=== PATIENT | female | born 1965 | race Caucasian/White ===

== ENCOUNTER 2017-02-24 08:59 | Emergency (ER) | payer OTHER ==
[~2017-02-24] VITALS: Ht 165.1 cm; Wt 100.7 kg
[~2017-02-24 08:59] MED LIST: AMPH20TA2 PO; CALCTAB5 PO; CITA20TA9 PO; ERGO1CAP35 PO; IBUP-1050 PO; LEVO50TA PO; OXYB5TAB74 PO; PHEN-536 PO; PRM625 PO; TOPI25TA99 PO; VNTHFA/IN INH
[2017-02-24 09:10] VITALS: TEMP 36.8; Ht 165.1 cm; Wt 100.7 kg
[2017-02-24 09:20] VITALS: O2SAT 99
[2017-02-24] MEDS ORDERED: ERGO500037 PO (09:33)
[2017-02-24] MEDS ORDERED: SODIUM CHLORIDE 0.9% 1000ML 1,000 ML IV STA (10:28)
[2017-02-24] MEDS ORDERED: MoRPHine SULFATE 10 MG/ML CARP/VIAL IV STA (10:28)
[2017-02-24] MEDS ORDERED: KETOROLAC TROMETHAMINE 30 MG/ML VIAL IV STA (10:28)
[2017-02-24 10:38] LABS: BASO % 0.3 %; BASO ABS # 0.03 K/uL (0-0.2); COMPLETE YES; EOS % 1.4 %; HEMATOCRIT 40.8 % (37-47); IG% 0.2 %; LYMPH % 22.1 %; LYMPH ABS # 1.91 K/uL (1.2-3.4); MEAN CELL VOLUME 94.4 fL (80-100); MEAN CORPUSCULAR HEMOGLOBIN 31.7 pg (25-34); MEAN CORPUSCULAR HGB CONC 33.6 g/dl (32-36); MEAN PLATELET VOLUME 10.3 fL (7.4-10.4); MONO % 7.3 %; NEUT % 68.7 %; PLATELET COUNT 266 K/uL (130-400); RED BLOOD COUNT 4.32 M/uL (4.2-5.4); WHITE BLOOD COUNT 8.65 K/uL (4.8-10.8)
[2017-02-24] MEDS ORDERED: OPTIRAY 320 IV PRN (10:45)
[2017-02-24 10:46] LABS: URINE APPEARANCE CLEAR (CLEAR); URINE BILIRUBIN NEG (NEG); URINE COLOR YELLOW; URINE NITRITE NEG (NEG); URINE PH 7.5 (4.5-7.5); URINE SPECIFIC GRAVITY 1.018 (1.000-1.030); UROBILINOGEN NEG (NEG); ZZUR CULT IF INDIC CLEAN CATCH NO
[2017-02-24 10:46] LABS: ALT/SGPT 52 U/L (12-78); BLOOD UREA NITROGEN 8 mg/dl (7-18); BUN/CREATININE RATIO 14.6 (10-20); CALCIUM 8.6 mg/dl (8.5-10.1); CARBON DIOXIDE 26 mmol/L (21-32); CHLORIDE 110 mmol/L (98-107); CREATININE 0.52 mg/dl (0.60-1.20); GLUCOSE 104 mg/dl (70-99); POTASSIUM 3.9 mmol/L (3.5-5.1); SODIUM 144 mmol/L (136-145)
[2017-02-24] MEDS ORDERED: ONDANSETRON INJ 2 MG/ML 2 ML VIAL IV STA (10:47)
[2017-02-24 10:51] LABS: ALKALINE PHOSPHATASE 111 U/L (45-117); AST/SGOT 28 U/L (15-37)
[2017-02-24 10:55] LABS: MANUAL MICROSCOPIC REQUIRED? NO; REVIEW REQ? NO
--- NOTE | 2017-02-24 11:00 | DIAGNOSTIC IMAGING REPORT ---
CHEST ONE VIEW PORTABLE CLINICAL HISTORY: Right-sided chest pain. COMPARISON STUDY: Chest radiograph April 07, 2016. FINDINGS: Lung volumes are normal. No consolidation is identified. There is no evidence of pulmonary edema. Cardiac size is normal. Mediastinal contours are normal. There is no evidence of pulmonary edema. IMPRESSION: No acute cardiopulmonary findings. Electronically signed by: Ivan Guerra M.D. 02/24/2017 10:58 AM Dictated Date/Time: 02/24/2017 10:58 AM
--- NOTE | 2017-02-24 11:55 | DIAGNOSTIC IMAGING REPORT ---
CT ANGIOGRAM OF THE CHEST CLINICAL HISTORY: Dyspnea. Right-sided chest pain. COMPARISON STUDY: Chest CT scan dated 11/27/2015. Chest x-ray dated 02/24/2017 and 11/28/2014. Thyroid ultrasound dated 12/10/2014. TECHNIQUE: Following the IV administration of 91 cc of Optiray 320, CT angiogram of the chest was performed from the upper abdomen to the thoracic inlet utilizing the pulmonary embolus protocol. Images are reviewed in the axial, sagittal, and coronal planes. 3-D MIPS images are created and assessed. IV contrast was administered without complication. CT DOSE: 628.30 mGy.cm FINDINGS: Thyroid: Imaged portions of the thyroid gland are normal in size and attenuation. There is a 2.7 cm low-attenuation nodule in the left lobe of the thyroid gland which contains small calcifications. This was better characterized on the 12/10/2014 thyroid ultrasound. Thoracic aorta: The thoracic aorta is normal in caliber and demonstrates standard 3-vessel arch anatomy. No dissection is seen. Pulmonary vasculature: The pulmonary trunk is normal in caliber. There are no filling defects identified in main, lobar, or segmental pulmonary branches to suggest pulmonary embolus. Heart: The heart is normal in size and configuration, and without pericardial effusion. There are scattered coronary artery calcifications. Lungs and pleural spaces: There is no airspace consolidation or pleural effusion. Dependent atelectasis is noted. An 8 mm right middle lobe pulmonary nodule is seen on image #146. The trachea and central airways are clear. Mediastinum: There is no mediastinal lymphadenopathy. Danyelle: Clear. Axillae: There is no axillary lymphadenopathy. Upper abdomen: Nonobstructing calculi are noted in the upper pole of left kidney. Cholecystectomy clips are observed. A small hiatal hernia is identified and postoperative changes are consistent with a Keon-en-Y gastric bypass surgery. Skeletal structures: The skeletal structures are osteopenic. A large hemangioma is noted in the body of T9. No lytic or blastic bony lesions are seen. Arthritic change is present in the shoulders. IMPRESSION: 1. There is no evidence of pulmonary embolus in the main, lobar, or segmental pulmonary arteries. 2. There is no airspace consolidation or pleural effusion. 3. There is an 8 mm right middle lobe pulmonary nodule. This has not significantly changed dating back to 2013 and is of low suspicion. 4. There is a 2.7 cm low-attenuation nodule in the left lobe of the thyroid gland. This was previously aspirated. Correlate with pathology results. 5. Left-sided nephrolithiasis. 6. Additional findings as above. Electronically signed by: Antwon Lopez M.D. 02/24/2017 11:54 AM Dictated Date/Time: 02/24/2017 11:47 AM
[2017-02-24] MEDS ORDERED: BENZ100C18 PO (12:21)
[2017-02-24] MEDS ORDERED: AMOX875T PO (12:21)
[2017-02-24] MEDS ORDERED: AMOXICILLIN/CLAVULANATE TAB 875 MG TAB PO ONE (12:30)
[2017-02-24 12:55] VITALS: BP 148/105; PULSE 70; O2SAT 99
[2017-02-24] MEDS ORDERED: IBUPROFEN 600 MG TAB ONE (12:58)
--- NOTE | 2017-02-24 17:38 | EMERGENCY ROOM VISIT NOTE ---
History Report prepared by Leonard: Noelle Jay Under the Supervision of: Dr. Damien Barrera D.O. First contact with patient: 10:07 Chief Complaint: SHORTNESS OF BREATH Stated Complaint: SOB,HEADACHE, SHOULDER AND ABD PAIN Nursing Triage Summary: pt reports being ill since the weekend. getting worse and worse cannot catch breath. pain in back between shoulder blades and up under right ribs. tender to touch. pt reports urine was brown yesterday. has headache, has dry cough since friday . pt reports having headache. pt reports pain in chest pressure like someone sitting on her. pt has hx of ms. denies any vomiting pt report she has hx of nodule on lung and thyroid has appt for f/u on march 24 .pt receives iron infusion every 9 months for 10 weeks History of Present Illness The patient is a 51 year old female who presents to the Emergency Room with complaints of worsening shoulder pain starting 2 days ago. The pain is also present in her back and under her rib cage and worsens with taking deep breaths. She also has a headache which she describes as pounding. She reports that she cannot lay flat because it becomes too hard to breathe. She has been sick with a cough and nasal congestion since 3 days ago. The cough is not productive. The pain is always present even if she is not breathing or moving. She denies swelling in calfs, rhinorrhea, fever, or hemoptysis. Pt has not been on any long trips or had surgery recently. Pt denies any heavy lifting recently. Pt has no history of blood clots, hypertension, high cholesterol, or diabetes. Pt is not on any blood thinners. Her gallbladder and appendix have been removed. Source of History: patient Onset: 2 days ago Position: shoulder Timing: worsening Modifying Factors (Worsening): breathing Associated Symptoms: + back pain, + cough, + headache, No fevers Note: Pt report rib pain, back pain, nasal congestion. Pt denies rhinorrhea and hemoptysis. Review of Systems See HPI for pertinent positives & negatives. A total of 10 systems reviewed and were otherwise negative. Past Medical & Surgical Medical Problems: (1) Anemia (2) Kidney stone (3) Multiple sclerosis (4) Posterior neck pain (5) Thyroid nodule Family History Cancer Diabetes mellitus FH: gallbladder disease FH: kidney disease Heart disease Social History Smoking Status: Former Smoker Alcohol Use: none Drug Use: none Marital Status: Occupation Status: disabled Current/Historical Medications Scheduled Amoxicillin & Pot Clavulanate (Augmentin 875-125 mg), 875 MG PO BID Amphetamine-Dextroamphetamine 20MG (Adderall 20MG), 20 MG PO BID Benzonatate (Tessalon Perles), 100 MG PO TID Citalopram Hydrobromide (Celexa), 30 MG PO DAILY Ergocalciferol (Vitamin D 59145 Unit), 50,000 UNIT PO 2XWK Estrogens, Conjugated (Premarin), 0.625 MG PO DAILY Ibuprofen (Advil), 400 MG PO DAILY Levothyroxine Sodium (Synthroid), 50 MCG PO DAILY Topiramate (Topamax ), 25 MG PO BID Scheduled PRN Albuterol Hfa (Ventolin Hfa), 2 PUFFS INH BID PRN for SOB/Wheezing Oxybutynin Chloride (Ditropan), 5 MG PO DAILY PRN for Incontinence Allergies Coded Allergies: Cephalexin (Unverified Allergy, Unknown, RASH HIVES TROUBLE BREATHING ITCHY, 09/10/16) Cephalosporins (Verified Allergy, Unknown, RASH, 09/10/16) Physical Exam Vital Signs Date Time Temp Pulse Resp B/P Pulse Ox O2 Delivery O2 Flow Rate FiO2 02/24/17 12:55 70 148/105 99 Room Air 02/24/17 12:24 79 02/24/17 12:00 73 16 136/94 95 Room Air 02/24/17 10:43 83 18 152/98 96 Room Air 02/24/17 09:25 99 Room Air 02/24/17 09:22 78 02/24/17 09:20 99 Room Air 02/24/17 09:10 36.8 80 22 152/98 97 Room Air Physical Exam GENERAL: Sitting up in bed, disheveled, holding right chest wall. EYE EXAM: normal conjunctiva OROPHARYNX: no exudate, no erythema, lips, buccal mucosa, and tongue normal and mucous membranes are moist NECK: supple, no nuchal rigidity, no adenopathy, non-tender CHEST: acute reproducible anterior chest wall tenderness LUNGS: Clear to auscultation. Normal chest wall mechanics HEART: no murmurs, S1 normal and S2 normal ABDOMEN: abdomen soft, non-tender, normo-active bowel sounds, no masses, no rebound or guarding. BACK: Acute reproducible tenderness tracking through the right trapezius and down the right paraspinal region. SKIN: no rashes and no bruising UPPER EXTREMITIES: upper extremities are grossly normal. LOWER EXTREMITIES: No pitting edema. NEURO EXAM: Normal sensorium, cranial nerves II-XII grossly intact, normal speech, no gross weakness of arms, no gross weakness of legs. Medical Decision & Procedures ER Provider Diagnostic Interpretation: Xray results per the radiologist and my interpretation. Other results have been interpreted by the radiologist and reviewed by me. CHEST ONE VIEW PORTABLE CLINICAL HISTORY: Right-sided chest pain. COMPARISON STUDY: Chest radiograph April 07, 2016. FINDINGS: Lung volumes are normal. No consolidation is identified. There is no evidence of pulmonary edema. Cardiac size is normal. Mediastinal contours are normal. There is no evidence of pulmonary edema. IMPRESSION: No acute cardiopulmonary findings. Electronically signed by: Ivan Guerra M.D. 02/24/2017 10:58 AM Dictated Date/Time: 02/24/2017 10:[address] ANGIOGRAM OF THE CHEST CLINICAL HISTORY: Dyspnea. Right-sided chest pain. COMPARISON STUDY: Chest CT scan dated 11/27/2015. Chest x-ray dated 02/24/2017 and 11/28/2014. Thyroid ultrasound dated 12/10/2014. TECHNIQUE: Following the IV administration of 91 cc of Optiray 320, CT angiogram of the chest was performed from the upper abdomen to the thoracic inlet utilizing the pulmonary embolus protocol. Images are reviewed in the axial, sagittal, and coronal planes. 3-D MIPS images are created and assessed. IV contrast was administered without complication. CT DOSE: 628.30 mGy.cm FINDINGS: Thyroid: Imaged portions of the thyroid gland are normal in size and attenuation. There is a 2.7 cm low-attenuation nodule in the left lobe of the thyroid gland which contains small calcifications. This was better characterized on the 12/10/2014 thyroid ultrasound. Thoracic aorta: The thoracic aorta is normal in caliber and demonstrates standard 3-vessel arch anatomy. No dissection is seen. Pulmonary vasculature: The pulmonary trunk is normal in caliber. There are no filling defects identified in main, lobar, or segmental pulmonary branches to suggest pulmonary embolus. Heart: The heart is normal in size and configuration, and without pericardial effusion. There are scattered coronary artery calcifications. Lungs and pleural spaces: There is no airspace consolidation or pleural effusion. Dependent atelectasis is noted. An 8 mm right middle lobe pulmonary nodule is seen on image #146. The trachea and central airways are clear. Mediastinum: There is no mediastinal lymphadenopathy. Danyelle: Clear. Axillae: There is no axillary lymphadenopathy. Upper abdomen: Nonobstructing calculi are noted in the upper pole of left kidney. Cholecystectomy clips are observed. A small hiatal hernia is identified and postoperative changes are consistent with a Keon-en-Y gastric bypass surgery. Skeletal structures: The skeletal structures are osteopenic. A large hemangioma is noted in the body of T9. No lytic or blastic bony lesions are seen. Arthritic change is present in the shoulders. IMPRESSION: 1. There is no evidence of pulmonary embolus in the main, lobar, or segmental pulmonary arteries. 2. There is no airspace consolidation or pleural effusion. 3. There is an 8 mm right middle lobe pulmonary nodule. This has not significantly changed dating back to 2013 and is of low suspicion. 4. There is a 2.7 cm low-attenuation nodule in the left lobe of the thyroid gland. This was previously aspirated. Correlate with pathology results. 5. Left-sided nephrolithiasis. 6. Additional findings as above. Electronically signed by: Antwon Lopez M.D. 02/24/2017 11:54 AM Dictated Date/Time: 02/24/2017 11:47 AM Laboratory Results 02/24/17 09:25 Red Blood Count 4.32, Mean Corpuscular Volume 94.4, Mean Corpuscular Hemoglobin 31.7, Mean Corpuscular Hemoglobin Concent 33.6, Mean Platelet Volume 10.3, Neutrophils (%) (Auto) 68.7, Lymphocytes (%) (Auto) 22.1, Monocytes (%) (Auto) 7.3, Eosinophils (%) (Auto) 1.4, Basophils (%) (Auto) 0.3, Neutrophils # (Auto) 5.94, Lymphocytes # (Auto) 1.91, Monocytes # (Auto) 0.63, Eosinophils # (Auto) 0.12, Basophils # (Auto) 0.03 02/24/17 09:25 Test 02/24/17 09:15 02/24/17 09:25 Urine Color YELLOW Urine Appearance CLEAR (CLEAR) Urine pH 7.5 (4.5-7.5) Urine Specific [place] 1.018 (1.000-1.030) Urine Protein NEG (NEG) Urine Glucose (UA) NEG (NEG) Urine Ketones NEG (NEG) Urine Occult Blood NEG (NEG) Urine Nitrite NEG (NEG) Urine Bilirubin NEG (NEG) Urine Urobilinogen NEG (NEG) Urine Leukocyte Esterase NEG (NEG) Urine WBC (Auto) 0 /hpf (0-5) Urine RBC (Auto) 0-4 /hpf (0-4) Urine Hyaline Casts (Auto) 0 /lpf (0-5) Urine Epithelial Cells (Auto) 10-20 /lpf (0-5) Urine Bacteria (Auto) NEG (NEG) White Blood Count 8.65 K/uL (4.8-10.8) Red Blood Count 4.32 M/uL (4.2-5.4) Hemoglobin 13.7 g/dL (12.0-16.0) Hematocrit 40.8 % (37-47) Mean Corpuscular Volume 94.4 fL (80-100) Mean Corpuscular Hemoglobin 31.7 pg (25-34) Mean Corpuscular Hemoglobin Concent 33.6 g/dl (32-36) Platelet Count 266 K/uL (130-400) Mean Platelet Volume 10.3 fL (7.4-10.4) Neutrophils (%) (Auto) 68.7 % Lymphocytes (%) (Auto) 22.1 % Monocytes (%) (Auto) 7.3 % Eosinophils (%) (Auto) 1.4 % Basophils (%) (Auto) 0.3 % Neutrophils # (Auto) 5.94 K/uL (1.4-6.5) Lymphocytes # (Auto) 1.91 K/uL (1.2-3.4) Monocytes # (Auto) 0.63 K/uL (0.11-0.59) Eosinophils # (Auto) 0.12 K/uL (0-0.5) Basophils # (Auto) 0.03 K/uL (0-0.2) RDW Standard Deviation 49.7 fL (36.4-46.3) RDW Coefficient of Variation 14.4 % (11.5-14.5) Immature Granulocyte % (Auto) 0.2 % Immature Granulocyte # (Auto) 0.02 K/uL (0.00-0.02) Anion Gap 8.0 mmol/L (3-11) Est Creatinine Clear Calc Drug Dose 148.8 ml/min Estimated GFR () 127.3 Estimated GFR (Non- 109.9 BUN/Creatinine Ratio 14.6 (10-20) Calcium Level 8.6 mg/dl (8.5-10.1) Total Bilirubin 0.3 mg/dl (0.2-1) Direct Bilirubin < 0.1 mg/dl (0-0.2) Aspartate Amino Transf (AST/SGOT) 28 U/L (15-37) Alanine Aminotransferase (ALT/SGPT) 52 U/L (12-78) Alkaline Phosphatase 111 U/L (45-117) Troponin I < 0.015 ng/ml (0-0.045) Total Protein 6.8 gm/dl (6.4-8.2) Albumin 3.3 gm/dl (3.4-5.0) Lipase 159 U/L (73-393) Laboratory results per my review. Medications Administered Medications (Trade) Dose Ordered Sig/Ramiro Route Start Time Stop Time Status Last Admin Dose Admin Sodium Chloride (Nss 1000ml) 1,000 ml @ 999 mls/hr Q1H1M STAT IV 02/24/17 10:28 02/24/17 11:28 DC 02/24/17 10:40 999 MLS/HR Morphine Sulfate (MoRPHine SULFATE INJ) 6 mg NOW STAT IV 02/24/17 10:28 02/24/17 10:31 DC 02/24/17 10:39 6 MG Ketorolac Tromethamine (Toradol Inj) 30 mg NOW STAT IV 02/24/17 10:28 02/24/17 10:31 DC 02/24/17 10:40 30 MG Ondansetron HCl (Zofran Inj) 4 mg NOW STAT IV 02/24/17 10:47 02/24/17 10:48 DC 02/24/17 10:52 4 MG Amoxicillin/ Clavulanate Potassium (Augmentin Tab) 875 mg ONE ONCE PO 02/24/17 12:30 02/24/17 12:32 DC 02/24/17 13:03 875 MG Ibuprofen (Motrin Tab) 600 mg STK-MED ONCE .ROUTE 02/24/17 12:58 02/24/17 13:01 DC 02/24/17 13:04 600 MG ECG Indication: SOB/dyspnea Rate (beats per minute): 74 Rhythm: sinus rhythm Findings: no ectopy, other (normal axis) ED Course ED COURSE: Vital signs were reviewed and showed hypertension The patients medical record was reviewed The above diagnostic studies were performed and reviewed. ED treatments and interventions as stated above. 1023: The patient was evaluated in room A12. A complete history and physical examination was performed. 1028: Toradol Inj 30 mg IV, Morphine Sulfate 6 mg IV, NSS 1000 ml @ 999 mls/hr IV. 1047: Zofran Inj 4 mg IV. 1228: Upon reevaluation, the patient is resting comfortably. I discussed my findings with the patient and she understands and agrees with the treatment plan. Based on the patients age, coexisting illnesses, exam and lab findings the decision to treat as an outpatient was made. The patient remained stable while under my care. The patient appeared well at the time of discharge. 1230: Augmentin Tab 875 mg PO. Medical Decision Differential diagnoses includes but is not limited to acute coronary syndrome, myocardial infarction, pericarditis, pulmonary embolus, aortic dissection, pneumonia, pneumothorax, musculoskeletal, shingles, esophageal. Patient is a 49-year-old female who presents the ER for right sided pleuritic chest pain. This has been present for over 24 hours. She notes that her symptoms originally started with a cough and congestion. She has no improvement on right side worsens the pain. On exam she is clearly reproducible anterior and posterior chest wall tenderness. It is worse with coughing. Labs show no significant leukocytosis or anemia. BMP along with LFTs , bilirubin and troponin were negative with chest pain that has been present for greater than 8 hours. Lipase was normal. UA was unremarkable. CT of the chest for PE was negative but does confirm previous pulmonary nodule that patient has had worked up since 2014. Patient was given morphine with resolution of her pain. She was discharged with muscle skeletal chest pain secondary to bronchitis. She was given a dose of Augmentin. Discussed with Pt concerning signs and symptoms to watch out for. Pt was instructed to follow up with their PCP and discussed with the patient their option to return to the ED at anytime for persistent or worsening symptoms. The appropriate anticipatory guidance and out-patient management, including indications for return to the emergency department, were explained at length to the patient and understood. Impression Primary Impression: Bronchitis Additional Impression: Pulmonary nodule Scribe Attestation The scribe's documentation has been prepared under my direction and personally reviewed by me in its entirety. I confirm that the note above accurately reflects all work, treatment, procedures, and medical decision making performed by me. Departure Information Dispostion Home / Self-Care Prescriptions Benzonatate (TESSALON PERLES) 100 Mg Cap 100 MG PO TID, #20 CAP Prov: Damien Barrera, DO 02/24/17 Amoxicillin & Pot Clavulanate (Augmentin 875-125 mg) 1 Tab Tab 875 MG PO BID for 7 Days, TAB Prov: Damien Barrera, DO 02/24/17 Referrals Jitendra Palmer M.D. (PCP) Forms HOME CARE DOCUMENTATION FORM, IMPORTANT VISIT INFORMATION Patient Instructions ED Bronchitis Abx Tx, My [facility] Additional Instructions Please follow up with your primary care doctor with in the next 24 hours. Any worsening of your symptoms, please return to the ED immediately. This includes worsening pain, fevers greater than 100.4, passing out, coughing up blood, or any other concerning signs or symptoms from your standpoint. Please take the antibiotic and cough medication as prescribed. Problem Qualifiers
== END 2017-02-24 13:10 | disposition home or self-care (01) ==
LOC: C.EDB 09:00 → C.EDA 13:10
DX: J40 Bronchitis, not specified as acute or chronic (principal); R91.1 Solitary pulmonary nodule; Z86.2 Personal history of diseases of the blood and blood-forming organs and certain disorders involving the immune mechanism; Z87.442 Personal history of urinary calculi; G35 Multiple sclerosis; E04.1 Nontoxic single thyroid nodule; Z80.9 Family history of malignant neoplasm, unspecified; Z83.3 Family history of diabetes mellitus; Z83.79 Family history of other diseases of the digestive system; Z84.1 Family history of disorders of kidney and ureter; Z82.49 Family history of ischemic heart disease and other diseases of the circulatory system; Z87.891 Personal history of nicotine dependence; Z79.899 Other long term (current) drug therapy

== ENCOUNTER 2017-05-05 09:59 | Emergency (ER) | payer OTHER ==
[~2017-05-05] VITALS: Ht 165.1 cm; Wt 90.0 kg
[~2017-05-05 09:59] MED LIST changes: -CALCTAB5 PO; +DTR/5 PO; -ERGO1CAP35 PO; +ERGO500037 PO; -OXYB5TAB74 PO; -PHEN-536 PO
[2017-05-05 10:02] VITALS: TEMP 36.7; Ht 165.1 cm; Wt 90.0 kg
[2017-05-05] MEDS ORDERED: SODIUM CHLORIDE 0.9% 1000ML 1,000 ML IV ONE (10:27)
[2017-05-05] MEDS ORDERED: SODIUM CHLORIDE 0.9% 1000ML 1,000 ML IV STA (10:27)
--- NOTE | 2017-05-05 10:34 | EMERGENCY ROOM VISIT NOTE ---
History Report prepared by Leonard: Disha Colvin Under the Supervision of: Dr. Elia Cisneros M.D. First contact with patient: 10:18 Chief Complaint: GI ASSESSMENT Stated Complaint: BLACK STOOL X 4 DAYS, ABD. PAIN, N,V, RECTAL PAIN History of Present Illness The patient is a 51 year old female who presents to the Emergency Room with complaints of multiple episodes of black stools beginning 4 days prior to arrival. She is also experiencing rectal pain. The patient states that she is also experiencing abdominal pain that she describes as a pinching sensation. She notes nausea, vomiting, diaphoresis and bloating. The patient notes she is having trouble sleeping due to her symptoms. The patient is also experiencing lightheadedness, dizziness and a headache. She notes a burning sensation in her abdomen 2 days ago. She did take Tylenol with her last dosage being last night. The patient has a history of anemia and notes she is not on oral iron supplements. The patient denies urinary symptoms or fever. The patient has a history of gastric bypass 14 years ago, last year she had a stomach ulcer, history of cholecystomy and appendectomy. The patient has MS and is note on medication or steroids. She does not use ibuprofen. 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 A total of 10 systems reviewed and were otherwise negative. Past Medical & Surgical Medical Problems: (1) Anemia (2) Kidney stone (3) Multiple sclerosis (4) Posterior neck pain (5) Thyroid nodule Surgical Problems: (1) H/O: hysterectomy Old medical records were reviewed. Nurse's notes were reviewed and I agree with. Family History Cancer Diabetes mellitus FH: gallbladder disease FH: kidney disease Heart disease Social History Smoking Status: Former Smoker Alcohol Use: none Drug Use: none Marital Status: Housing Status: lives with family Occupation Status: disabled Current/Historical Medications Scheduled Amphetamine-Dextroamphetamine 20MG (Adderall 20MG), 20 MG PO DAILY Bismuth Subsalicylate (Pepto-Bismol), 15 ML PO DAILY Citalopram Hydrobromide (Celexa), 30 MG PO DAILY Ergocalciferol (Vitamin D 10826 Unit), 50,000 UNIT PO 2XWK Levothyroxine Sodium (Synthroid), 50 MCG PO DAILY Scheduled PRN Albuterol Hfa (Ventolin Hfa), 2 PUFFS INH BID PRN for SOB/Wheezing Oxybutynin Chloride (Ditropan), 5 MG PO DAILY PRN for Incontinence Allergies Coded Allergies: Cephalexin (Unverified Allergy, Unknown, RASH HIVES TROUBLE BREATHING ITCHY, 05/05/17) Cephalosporins (Verified Allergy, Unknown, RASH, 05/05/17) Physical Exam Vital Signs Date Time Temp Pulse Resp B/P (MAP) Pulse Ox O2 Delivery O2 Flow Rate FiO2 05/05/17 13:26 73 18 140/90 98 Room Air 05/05/17 11:05 72 18 131/91 96 Room Air 05/05/17 10:51 76 05/05/17 10:02 36.7 18 149/101 Room Air Physical Exam General: Well developed well nourished in no acute distress non ill appearing middle age female, breathing comfortably on room air. Normal speech HEENT: Normal cephalic atraumatic. Pupils are equal round and reactive to light. Extraocular movements are intact. Oropharynx is pink with moist mucous membranes. No swelling of the mouth lips or tongue. Neck: Supple with a midline trachea. No meningeal signs or stiffness, no JVD or bruits. No Stridor. Chest: Clear to auscultation bilaterally. No wheezes or rhonchi. No increased work of breathing. Heart: regular rate and rhythm. Abdomen: Soft, mild tenderness to epigastric area, nondistended without rebound guarding or rigidity. Previous surgical scars. 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 Extremities: No cyanosis clubbing or edema. No calf tenderness or assymetry Spine/Back. Non tender to palpation. No CVA tenderness Skin: Good turgor without rashes. Neurologic exam: Cranial nerves two through 12 are intact. Motor and sensation are intact and symmetrical throughout. Medical Decision & Procedures ER Provider Diagnostic Interpretation: CT results as stated below per my review and radiologist interpretation: CT ABD/PELVIS IV CONTRAST ONLY CLINICAL HISTORY: Abdominal pain. Dark stool. Nausea and vomiting. History of gastric bypass. COMPARISON STUDY: 02/04/2012 TECHNIQUE: Following the IV administration of 94 mL of Optiray-320, CT scan of the abdomen and pelvis was performed from the lung bases to the proximal femurs. Images are reviewed in the axial, sagittal, and coronal planes. IV contrast was administered without complication. CT DOSE: 869.96 mGy.cm FINDINGS: Lower chest: There are minor right basilar atelectatic changes Liver: There is mild hepatic steatosis. No focal masses are visualized. There is no ductal dilatation. Gallbladder: Surgically absent Spleen: Normal in size and attenuation. Pancreas: Unremarkable. Adrenal glands: Unremarkable. Kidneys: There is a punctate nonobstructing lower pole right renal calculus. No solid renal masses are visualized. There is a 9 mm lower pole left renal hypodensity unchanged the prior study and likely representing a cyst Bowel: There are postsurgical changes of gastric bypass and Keon-en-Y anastomosis. There is moderate sigmoid diverticulosis. There are no acute peridiverticular inflammatory changes. The appendix is not visualized with certainty. There are no findings to indicate acute appendicitis. There are no transition zones indicate bowel obstruction. Peritoneum: There is no intraperitoneal free air or abdominal ascites. Vasculature: The abdominal aorta is normal in course and caliber. Adenopathy: None. Pelvic viscera: The uterus appears surgically absent. Skeletal structures: No destructive osseous lesions are seen. There is progressive nodular thickening of the rectus. This may be postsurgical representing a fibromatous response. IMPRESSION: 1. Postsurgical changes are prior gastric bypass 2. No evidence of bowel obstruction. No evidence of free air 3. Extensive diverticulosis. No evidence of acute peridiverticular inflammatory change 4. Progressive nonspecific nodular thickening of the rectus sheath. Electronically signed by: Raj Romero M.D. 05/05/2017 12:47 PM Dictated Date/Time: 05/05/2017 12:40 PM Laboratory Results 05/05/17 10:25 Red Blood Count 5.06, Mean Corpuscular Volume 92.1, Mean Corpuscular Hemoglobin 30.8, Mean Corpuscular Hemoglobin Concent 33.5, Mean Platelet Volume 9.8, Neutrophils (%) (Auto) 60.5, Lymphocytes (%) (Auto) 29.3, Monocytes (%) (Auto) 7.5, Eosinophils (%) (Auto) 1.8, Basophils (%) (Auto) 0.6, Neutrophils # (Auto) 4.68, Lymphocytes # (Auto) 2.27, Monocytes # (Auto) 0.58, Eosinophils # (Auto) 0.14, Basophils # (Auto) 0.05 05/05/17 10:25 Test 05/05/17 10:20 05/05/17 10:25 Urine Color YELLOW Urine Appearance TURBID (CLEAR) Urine pH 7.5 (4.5-7.5) Urine Specific [place] 1.019 (1.000-1.030) Urine Protein NEG (NEG) Urine Glucose (UA) NEG (NEG) Urine Ketones NEG (NEG) Urine Occult Blood NEG (NEG) Urine Nitrite NEG (NEG) Urine Bilirubin NEG (NEG) Urine Urobilinogen NEG (NEG) Urine Leukocyte Esterase NEG (NEG) Urine WBC (Auto) 0 /hpf (0-5) Urine RBC (Auto) 0-4 /hpf (0-4) Urine Hyaline Casts (Auto) 0 /lpf (0-5) Urine Epithelial Cells (Auto) 5-10 /lpf (0-5) Urine Bacteria (Auto) NEG (NEG) White Blood Count 7.74 K/uL (4.8-10.8) Red Blood Count 5.06 M/uL (4.2-5.4) Hemoglobin 15.6 g/dL (12.0-16.0) Hematocrit 46.6 % (37-47) Mean Corpuscular Volume 92.1 fL (80-100) Mean Corpuscular Hemoglobin 30.8 pg (25-34) Mean Corpuscular Hemoglobin Concent 33.5 g/dl (32-36) Platelet Count 309 K/uL (130-400) Mean Platelet Volume 9.8 fL (7.4-10.4) Neutrophils (%) (Auto) 60.5 % Lymphocytes (%) (Auto) 29.3 % Monocytes (%) (Auto) 7.5 % Eosinophils (%) (Auto) 1.8 % Basophils (%) (Auto) 0.6 % Neutrophils # (Auto) 4.68 K/uL (1.4-6.5) Lymphocytes # (Auto) 2.27 K/uL (1.2-3.4) Monocytes # (Auto) 0.58 K/uL (0.11-0.59) Eosinophils # (Auto) 0.14 K/uL (0-0.5) Basophils # (Auto) 0.05 K/uL (0-0.2) RDW Standard Deviation 44.5 fL (36.4-46.3) RDW Coefficient of Variation 13.2 % (11.5-14.5) Immature Granulocyte % (Auto) 0.3 % Immature Granulocyte # (Auto) 0.02 K/uL (0.00-0.02) Anion Gap 7.0 mmol/L (3-11) Est Creatinine Clear Calc Drug Dose 117.6 ml/min Estimated GFR () 120.2 Estimated GFR (Non- 103.7 BUN/Creatinine Ratio 21.7 (10-20) Calcium Level 9.4 mg/dl (8.5-10.1) Total Bilirubin 0.3 mg/dl (0.2-1) Direct Bilirubin < 0.1 mg/dl (0-0.2) Aspartate Amino Transf (AST/SGOT) 20 U/L (15-37) Alanine Aminotransferase (ALT/SGPT) 31 U/L (12-78) Alkaline Phosphatase 118 U/L (45-117) Total Protein 7.9 gm/dl (6.4-8.2) Albumin 3.8 gm/dl (3.4-5.0) Lipase 197 U/L (73-393) Laboratory studies as stated above per my review. Medications Administered Medications (Trade) Dose Ordered Sig/Ramiro Route Start Time Stop Time Status Last Admin Dose Admin Sodium Chloride 1,000 ml @ 999 mls/hr Q1H1M STAT IV 05/05/17 10:27 05/05/17 11:27 DC 05/05/17 11:06 999 MLS/HR Sodium Chloride 1,000 ml @ 150 mls/hr Q6H40M ONCE IV 05/05/17 10:27 05/05/17 13:50 DC 05/05/17 10:27 150 MLS/HR ECG Indication: other (black stools) Rate (beats per minute): 75 Rhythm: normal sinus (with SA) Findings: no acute ischemic change, no ectopy Change: no significant change (from February 24, 2017) ED Course 1021: Past medical records reviewed. The patient was evaluated in room C5, and a complete history and physical examination were performed. 1027: Sodium Chloride 1,000 ml @ 150 mls/hr IV, Sodium Chloride 1,000 ml @ 999 mls/hr IV. 1154: The patient is resting comfortably. Her hemoglobin is 15 and she is not anemic. CT was ordered. 1232: The patient is back from CT and is resting comfortably. 1318: The patient is resting comfortably. 1321: Upon reevaluation, the patient is hemodynamically stable. I discussed the results and treatment plan with her. She verbalized agreement of the treatment plan. The patient was discharged home. Medical Decision Differentials include, but are not limited to; GI bleed, anemia, ulcer disease, colitis, electrolyte or metabolic abnormalities, infection. Medication Reconciliation: I attest that I have personally reviewed the patient' s current medication list. Blood pressure Screening: Patient was found to have an mildly elevated blood pressure that is suspected to be related to pain and was referred to their primary doctor for recheck and further treatment. This patient comes in as described above. She's had some epigastric abdominal pain and burning she also noticed that she had some black stool was concerned that she could be bleeding .she may have a history of an ulcer in the past. IV access was established and blood work was obtained .I did a rectal examination and it was guaiac negative. She has been on Pepto-Bismol for several days and this may be causing her stool to be black. Her abdomen is benign and there is no evidence of any hernia or tenderness. She has a complicated medical history however with gastric bypass. IV access was established and blood work was obtained. She has no elevation of white count or fever to suggest infection. She's not anemic with hemoglobin is 15 range. She has no acute electrolyte or metabolic abnormalities. She has nothing to suggest a UTI. CAT scan was obtained and shows no acute findings. she has diverticulosis but no evidence of acute diverticulitis. She feels good and would like to go home. I think this may be related to gastritis. she is on Protonix and she should continue this and follow up with her regular doctor and return ER if: increasing pain, worsening of symptoms, any new problems or concerns. Impression Primary Impression: Epigastric abdominal pain Additional Impression: Gastritis Scribe Attestation The scribe's documentation has been prepared under my direction and personally reviewed by me in its entirety. I confirm that the note above accurately reflects all work, treatment, procedures, and medical decision making performed by me. Departure Information Dispostion Home / Self-Care Referrals Elia Perez M.D. (PCP) Forms HOME CARE DOCUMENTATION FORM, IMPORTANT VISIT INFORMATION Patient Instructions My [facility] Additional Instructions Rest. Drink plenty of fluids. Return if: Worsening of symptoms, increasing pain, not tolerating fluids, fever or chills, any new problems or concerns. Follow-up with your doctor and/or GI specialist this week for recheck. Return to the ER any point if symptoms worsen Problem Qualifiers
[2017-05-05 10:42] LABS: BASO % 0.6 %; BASO ABS # 0.05 K/uL (0-0.2); COMPLETE YES; EOS % 1.8 %; HEMATOCRIT 46.6 % (37-47); IG% 0.3 %; LYMPH % 29.3 %; LYMPH ABS # 2.27 K/uL (1.2-3.4); MEAN CELL VOLUME 92.1 fL (80-100); MEAN CORPUSCULAR HEMOGLOBIN 30.8 pg (25-34); MEAN CORPUSCULAR HGB CONC 33.5 g/dl (32-36); MEAN PLATELET VOLUME 9.8 fL (7.4-10.4); MONO % 7.5 %; NEUT % 60.5 %; PLATELET COUNT 309 K/uL (130-400); RED BLOOD COUNT 5.06 M/uL (4.2-5.4); WHITE BLOOD COUNT 7.74 K/uL (4.8-10.8)
[2017-05-05 10:44] LABS: MANUAL MICROSCOPIC REQUIRED? NO; REVIEW REQ? NO; URINE APPEARANCE TURBID (CLEAR); URINE BILIRUBIN NEG (NEG); URINE COLOR YELLOW; URINE NITRITE NEG (NEG); URINE PH 7.5 (4.5-7.5); URINE SPECIFIC GRAVITY 1.019 (1.000-1.030); UROBILINOGEN NEG (NEG)
[2017-05-05 11:01] LABS: ALT/SGPT 31 U/L (12-78); BLOOD UREA NITROGEN 13 mg/dl (7-18); BUN/CREATININE RATIO 21.7 (10-20); CALCIUM 9.4 mg/dl (8.5-10.1); CARBON DIOXIDE 27 mmol/L (21-32); CHLORIDE 106 mmol/L (98-107); CREATININE 0.62 mg/dl (0.60-1.20); GLUCOSE 100 mg/dl (70-99); SODIUM 140 mmol/L (136-145)
[2017-05-05 11:03] LABS: ALKALINE PHOSPHATASE 118 U/L (45-117); AST/SGOT 20 U/L (15-37)
[2017-05-05] MEDS ORDERED: OPTIRAY 320 IV PRN (12:00)
[2017-05-05] MEDS ORDERED: BISM262S7 PO (12:23)
--- NOTE | 2017-05-05 12:48 | DIAGNOSTIC IMAGING REPORT ---
CT ABD/PELVIS IV CONTRAST ONLY CLINICAL HISTORY: Abdominal pain. Dark stool. Nausea and vomiting. History of gastric bypass. COMPARISON STUDY: 02/04/2012 TECHNIQUE: Following the IV administration of 94 mL of Optiray-320, CT scan of the abdomen and pelvis was performed from the lung bases to the proximal femurs. Images are reviewed in the axial, sagittal, and coronal planes. IV contrast was administered without complication. CT DOSE: 869.96 mGy.cm FINDINGS: Lower chest: There are minor right basilar atelectatic changes Liver: There is mild hepatic steatosis. No focal masses are visualized. There is no ductal dilatation. Gallbladder: Surgically absent Spleen: Normal in size and attenuation. Pancreas: Unremarkable. Adrenal glands: Unremarkable. Kidneys: There is a punctate nonobstructing lower pole right renal calculus. No solid renal masses are visualized. There is a 9 mm lower pole left renal hypodensity unchanged the prior study and likely representing a cyst Bowel: There are postsurgical changes of gastric bypass and Keon-en-Y anastomosis. There is moderate sigmoid diverticulosis. There are no acute peridiverticular inflammatory changes. The appendix is not visualized with certainty. There are no findings to indicate acute appendicitis. There are no transition zones indicate bowel obstruction. Peritoneum: There is no intraperitoneal free air or abdominal ascites. Vasculature: The abdominal aorta is normal in course and caliber. Adenopathy: None. Pelvic viscera: The uterus appears surgically absent. Skeletal structures: No destructive osseous lesions are seen. There is progressive nodular thickening of the rectus. This may be postsurgical representing a fibromatous response. IMPRESSION: 1. Postsurgical changes are prior gastric bypass 2. No evidence of bowel obstruction. No evidence of free air 3. Extensive diverticulosis. No evidence of acute peridiverticular inflammatory change 4. Progressive nonspecific nodular thickening of the rectus sheath. Electronically signed by: Raj Romero M.D. 05/05/2017 12:47 PM Dictated Date/Time: 05/05/2017 12:40 PM
[2017-05-05 13:26] VITALS: BP 140/90; PULSE 73; O2SAT 98
== END 2017-05-05 13:45 | disposition home or self-care (01) ==
LOC: C.EDB 10:01 → C.EDC 13:45
DX: K29.70 Gastritis, unspecified, without bleeding (principal); D64.9 Anemia, unspecified; G35 Multiple sclerosis; E04.1 Nontoxic single thyroid nodule; Z87.442 Personal history of urinary calculi; Z98.84 Bariatric surgery status; Z90.710 Acquired absence of both cervix and uterus; Z79.899 Other long term (current) drug therapy; Z87.891 Personal history of nicotine dependence; Z88.3 Allergy status to other anti-infective agents; Z80.9 Family history of malignant neoplasm, unspecified; Z83.3 Family history of diabetes mellitus; Z83.79 Family history of other diseases of the digestive system; Z84.1 Family history of disorders of kidney and ureter; Z82.49 Family history of ischemic heart disease and other diseases of the circulatory system

== ENCOUNTER → 2017-08-07 | Outpatient (CLI) | payer BC, OTHER ==
[~2017-08-07] MED LIST changes: -DTR/5 PO; +GADAVIST IV PRN; -IBUP-1050 PO; -LEVO50TA PO; +OXYB5TAB74 PO; -PRM625 PO; -TOPI25TA99 PO
--- NOTE | 2017-08-07 11:49 | DIAGNOSTIC IMAGING REPORT ---
THORACIC SPINE COMBO HISTORY: Demyelinating disorder MS TECHNIQUE: Multiplanar multisequence MRI of the thoracic spine was performed both before and after the intravenous administration of contrast. COMPARISON: None. FINDINGS: Alignment and curvature are intact. No fracture or subluxation. No significant central canal or neural foraminal narrowing. 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 No abnormality of signal characteristics of the thoracic cord. No abnormal postcontrast enhancement. IMPRESSION: Negative study The above report was generated using voice recognition software. It may contain grammatical, syntax or spelling errors. Electronically signed by: Juventino Mosley M.D. 08/07/2017 11:48 AM Dictated Date/Time: 08/07/2017 11:44 AM
--- NOTE | 2017-08-07 12:01 | DIAGNOSTIC IMAGING REPORT ---
MRI CERVICAL SPINE COMBO CLINICAL HISTORY: Multiple sclerosis. COMPARISON STUDY: CT of the neck dated 12/10/2014. Thyroid ultrasound dated 12/06/2014. TECHNIQUE: MRI of the cervical spine is performed utilizing various T1 and T2-weighted sequences in the axial and sagittal planes. Contrast-enhanced sequences are acquired following the IV administration of 9 cc of Gadavist. Examination is significantly compromised by motion artifact. FINDINGS: Cervical spine: Vertebral body height and alignment are maintained throughout the cervical spine. Normal marrow signal intensity is preserved throughout the visualized bony structures. The atlantodental articulation appears maintained. The spinous processes are intact. No destructive bony lesion is seen. Intervertebral discs: Mild degenerative disc desiccation is seen throughout the cervical spine. No significant loss of height is seen. Spinal cord: The cervical spinal cord is normal in morphology and signal intensity. No abnormal enhancement is seen on the postcontrast images. C2-C3: Unremarkable. C3-C4: Mild facet arthropathy is of no consequence. The central canal and neural foramina are widely patent. C4-C5: Mild facet arthropathy is of no consequence. The central canal and neural foramina are widely patent. C5-C6: There is a tiny posterior disc osteophyte complex. There is no significant acquired compromise of the central canal. The neural foramina appear clear. C6-C7: A posterior disc osteophyte complex eccentric to the left abuts the ventral cord. Uncovertebral and facet arthropathy cause mild left neural foraminal stenosis. C7-T1: A small posterior disc osteophyte complex effaces the ventral subarachnoid space. The neural foramina appear clear. T1-T2: Unremarkable. T2-T3: A posterior disc bulge abuts the ventral cord. This is only seen on the sagittal view. Soft tissues: The prevertebral and paraspinous soft tissues are within normal limits. There is a 2.9 cm nodule in the left lobe of the thyroid gland. Brain parenchyma: Partially imaged brain parenchyma at the skull base is normal in appearance. IMPRESSION: 1. The cervical spinal cord is normal in morphology and signal intensity. No abnormal enhancement is seen on the postcontrast images. 2. Mild cervical spondylosis as above. See discussion for detailed level by level analysis. 3. There is a large nodule in the left thyroid lobe. This has also been seen on prior examinations. Dictated: 08/07/2017 11:39 AM Transcribed: 08/07/2017 12:00 PM [facility] Electronically signed by: Antwon Lopez M.D. 08/07/2017 12:05 PM Dictated Date/Time: 08/07/2017 11:39 AM
--- NOTE | 2017-08-07 12:13 | DIAGNOSTIC IMAGING REPORT ---
BRAIN COMBO FOR MS HISTORY: 51 years-old Female MS acute 6 pupils with headache and left-sided numbness. Double vision. History of multiple sclerosis. COMPARISON: MRI of the brain 09/17/2016 TECHNIQUE: Multiplanar multisequence MRI of the brain was obtained both with and without the use of 9 mL Gadavist. FINDINGS: There is no restricted diffusion to suggest acute ischemia. The midline structures including the corpus callosum, brainstem, optic chiasm, infundibulum, pituitary and peroneal glands are unremarkable. Minimal uncovertebral spurring and facet arthropathy involve the upper cervical spine. There is no acute intracranial hemorrhage, midline shift, hydrocephalus or abnormal extra-axial collections. Multifocal areas of T2/flair prolongation are again seen within the periventricular and to lesser extent within the subcortical white matter of the cerebral hemispheres bilaterally. Most of these foci are again seen within a perpendicular distribution to the corpus callosum. Foci adjacent to the frontal horn left lateral ventricle appears somewhat more conspicuous on today's study. No definite new demyelinating plaques are identified. No infratemporal or brainstem foci identified. No abnormal enhancement is seen to suggest active demyelination. The major flow voids at the skull base are patent. The left vertebral artery appears dominant. Orbits are symmetric. Mastoid air cells and paranasal sinuses are generally clear. IMPRESSION: 1. Redemonstration of multiple foci of T2/FLAIR prolongation within the cerebral hemispheres bilaterally, predominantly oriented perpendicular to the corpus callosum compatible with patient's known history of multiple sclerosis. No new plaques or evidence of active demyelination identified. 2. No acute intracranial abnormality. The above report was generated using voice recognition software. It may contain grammatical, syntax or spelling errors. Electronically signed by: Isaac Ly M.D. 08/07/2017 12:12 PM Dictated Date/Time: 08/07/2017 11:35 AM
== END | disposition home or self-care (01) ==
LOC: C.MRI 08:40
PROVIDERS: ATTEND Physician Assistant
DX: G35 Multiple sclerosis (principal); M47.812 Spondylosis without myelopathy or radiculopathy, cervical region; E04.1 Nontoxic single thyroid nodule

== ENCOUNTER → 2017-10-25 | Outpatient (CLI) | payer BC, OTHER ==
[~2017-10-25] MED LIST changes: +DTR/5 PO; -GADAVIST IV PRN; -OXYB5TAB74 PO
[2017-10-25 11:49] LABS: BASO % 0.6 %; BASO ABS # 0.05 K/uL (0-0.2); COMPLETE YES; IG% 0.2 %; LYMPH % 27.8 %; LYMPH ABS # 2.42 K/uL (1.2-3.4); MEAN CELL VOLUME 90.3 fL (80-100); MEAN CORPUSCULAR HEMOGLOBIN 29.9 pg (25-34); MEAN CORPUSCULAR HGB CONC 33.1 g/dl (32-36); MEAN PLATELET VOLUME 9.7 fL (7.4-10.4); NEUT % 62.4 %; PLATELET COUNT 328 K/uL (130-400); RED BLOOD COUNT 4.65 M/uL (4.2-5.4); WHITE BLOOD COUNT 8.71 K/uL (4.8-10.8)
[2017-10-25 12:18] LABS: ALT/SGPT 51 U/L (12-78); AST/SGOT 25 U/L (15-37); BLOOD UREA NITROGEN 11 mg/dl (7-18); BUN/CREATININE RATIO 23.2 (10-20); CARBON DIOXIDE 24 mmol/L (21-32); CHLORIDE 107 mmol/L (98-107); CREATININE 0.47 mg/dl (0.60-1.20); GLUCOSE 96 mg/dl (70-99); POTASSIUM 4.2 mmol/L (3.5-5.1); SODIUM 137 mmol/L (136-145)
[2017-10-25 12:21] LABS: ALKALINE PHOSPHATASE 120 U/L (45-117)
== END | disposition home or self-care (01) ==
LOC: C.LAB 10:55
PROVIDERS: ATTEND Physician Assistant
DX: G35 Multiple sclerosis (principal)

== ENCOUNTER 2018-07-14 10:41 | Emergency (ER) | payer BC, OTHER ==
[~2018-07-14] VITALS: Ht 165.1 cm; Wt 92.7 kg
[2018-07-14 10:44] VITALS: TEMP 36.8; Ht 165.1 cm; Wt 92.7 kg
[2018-07-14] MEDS ORDERED: DiphenhydrAMINE HCL 50 MG/ML VIAL IV STA (11:16)
[2018-07-14] MEDS ORDERED: ONDANSETRON INJ 2 MG/ML 2 ML VIAL IV STA ×2 (11:16→12:07)
[2018-07-14] MEDS ORDERED: SODIUM CHLORIDE 0.9% 1000ML 1,000 ML IV STA (11:16)
[2018-07-14] MEDS ORDERED: KETOROLAC TROMETHAMINE 30 MG/ML VIAL IV STA (11:16)
[2018-07-14] MEDS ORDERED: B SHOT (11:24)
[2018-07-14] MEDS ORDERED: IRON (11:24)
[2018-07-14 13:00] VITALS: BP 154/95; PULSE 75; O2SAT 100
--- NOTE | 2018-07-14 16:34 | EMERGENCY ROOM VISIT NOTE ---
ED Visit Note First contact with patient: 10:48 CHIEF COMPLAINT: Severe headache and vomiting. HISTORY OF PRESENT ILLNESS: Ms. Munoz is a [age] year-old white female who ambulates into the ED accompanied by her grandson complaining of a severe headache. Historically patient reports she has an history of multiple sclerosis. Intermittently she develops severe headaches. They have been evaluated in the past and she reports no significant cause for the headaches were ever identified. She reports a gradual onset of a severe headache that started 3 days ago. The pain is constant and has been slowly increasing in severity. This is not the worst headache of the life and is similar to previous headaches. Currently she describes the headache as a sharp pressure sensation/pain in the bifrontal areas. She rates the pain a 7/10. The pain is radiating to the postauricular area. Her pain exacerbates with exposure to bright lights and loud sounds. She has not identified any alleviating factors related to the pain. She reports she has been using acetaminophen and ibuprofen but feels she cannot honestly say these medications helped or hurt her because she reports after taking the medication she fell asleep; she does report mild relief of her discomfort upon waking. Associated with her pain she reports she has been nauseated and vomiting. She denies fever, chills, sweats, skin eruptions, skin color changes, dizziness, lightheadedness, abnormal neurological symptoms; visual changes, hearing changes, difficulty speaking, difficulty swallowing, difficulty walking/coordinating body movements, recent new or repetitive head trauma, upper respiratory tract symptoms, sinus congestion, sore throats, neck/ back pain/stiffness, chest pain, shortness of breath, abdominal pain, hematochezia, extremity weakness/numbness/tingling. REVIEW OF SYSTEMS: As noted above in History of Present Illness; all body systems reviewed with the patient and found to be negative unless noted above otherwise. PAST MEDICAL HISTORY: As previously noted and anemia, bronchitis, pneumonia, kidney stone, thyroid nodule, neck pain and status post hysterectomy. CURRENT MEDICATIONS: Medications Dose Route/Sig Max Daily Dose Days Date Category Dose Instructions [B12 Shot] Unknown Dose Thursdays07/14/18 Reported [IV Iron] Unknown Dose 07/14/18 Reported Vitamin D 57812 Unit (Ergocalciferol) 50,000 Unit Cap 50,000 Unit PO 2XWK 02/24/17 Reported FRIDAY & FRIDAY Ventolin Hfa (Albuterol) 200 Puffs/43805 Mcg Aers 2 Puffs INH BID PRN 09/10/16 Reported Ditropan (Oxybutynin Chloride) 5 Mg Tab 5 Mg PO DAILY PRN 06/14/16 Reported Adderall 20MG (Amphetamine-Dextroamphetamine 20MG) 1 Tab Tab 20 Mg PO DAILY 06/14/16 Reported Celexa (Citalopram Hydrobromide) 20 Mg Tab 30 Mg PO DAILY 06/11/12 Reported ALLERGIES TO MEDICATIONS: Cephalexin, cephalosporins. SOCIAL HISTORY: Patient is not currently employed; she feels safe in her home environment; she denies tobacco and alcohol use. PHYSICAL EXAM: Vital Signs: Date Time Temp Pulse Resp B/P (MAP) Pulse Ox O2 Delivery O2 Flow Rate FiO2 07/14/18 13:00 75 18 154/95 100 07/14/18 12:18 84 18 130/95 99 Room Air 07/14/18 10:44 36.8 99 20 150/93 99 Room Air GENERAL: 52 year-old white female in moderate distress due to pain, afebrile and hemodynamically stable. Found lying in a darkened room with pillow overhead. NEUROLOGIC: Awake, alert and oriented to person place and time. Answering questions appropriately and following commands. Cranial nerves II-XII grossly intact. Romberg test negative. Good short-term and long-term recall. Normal rapid alternating movements of the hands. Normal heel gregorio test. No focal neurologic deficits noted. SKIN: Warm, dry and pink. No rashes, lesions or soft tissue trauma noted. HEENT: Normocephalic, atraumatic. Skull: No bony deformity, bony crepitus, swelling or ecchymosis. No raccoons eyes or galicia signs. No drainage from the ears of the nostril; tympany. Face: No bony deformity, bony crepitus, swelling or ecchymosis. PERRLA. EOMI without nystagmus. Funduscopic examination deferred due to light sensitivity. Sclerae white and conjunctiva pink without drainage. No tenderness over the frontal or maxillary sinuses. External ears are nontender. Auditory canals are pink and patent. Tympanic membranes were not erythematous or edematous. Oral cavity is moist and pink. No intraoral trauma. Airway is patent. Speech is clear and normal. No JVD. Trachea midline. No carotid bruits. NECK: Soft and supple. No tenderness through the central cervical region or cervical musculature. No nuchal rigidity or meningismus. Full range of motion of the cervical spine. THORAX: Lungs clear to auscultation and equal bilaterally with no wheezing, crackles, rhonchi or stridor and equal chest wall movements. HEART: Regular rate and rhythm with no murmurs, rubs or gallops. ABDOMEN: Soft and nontender with bowel sounds present in all quadrants; no rigidity, rebound tenderness, organomegaly or guarding. MUSCULOSKELETAL: Full range of motion of all joints without any significant discomfort and the gait is normal. ED COURSE: Patient is assessed with history and physical examination. Patient's medication list was reviewed. Patient was hydrated with normal saline and received 30 mg of Toradol IV for pain, total of 8 mg of Zofran IV for nausea and 50 mg of Benadryl IV. Patient was reassessed multiple times during her stay in the emergency department Patient's case was reviewed with Dr. Thompson; he independently assessed the patient we agreed on diagnostic approach, treatment, disposition and plan. Patient was educated about her condition and instructed on her treatment plan; she verbalized understanding and agreement with this plan. CLINICAL IMPRESSION: Acute headache with vomiting. DECISION MAKIN-year-old female who presents for evaluation of headache. She is afebrile, well appearing, and hemodynamically stable. She has no signs of a sinus, dental , or ear infection and no evidence of meningismus. She is neurologically intact. I do not suspect a headache to be secondary to a subarachnoid hemorrhage, meningitis, encephalitis, or intracranial mass lesion. DISPOSITION: Patient was discharged to home in stable condition accompanied by her daughter; prior to departure she was reassessed and subjectively reported she was pain and symptom-free. DISCHARGE INSTRUCTIONS: Rest at home, in a quiet darkened room and allow the medication to work for the pain. Continue to follow up current treatment plan prescribed by your physician for your migraine headaches. See your own doctor in follow-up this week for continued care and treatment. Return to the emergency department as needed for worsening/uncontrolled pain, any abnormal neurological symptoms, fevers or any new/concerning symptoms.
== END 2018-07-14 13:00 | disposition home or self-care (01) ==
LOC: C.EDB 10:42 → C.EDC 13:00
DX: R51 Headache (principal); R11.2 Nausea with vomiting, unspecified; G35 Multiple sclerosis; D64.9 Anemia, unspecified; Z87.01 Personal history of pneumonia (recurrent); Z87.442 Personal history of urinary calculi; Z90.710 Acquired absence of both cervix and uterus; Z79.899 Other long term (current) drug therapy

== ENCOUNTER 2020-02-10 13:25 | Inpatient (IN) ==
[2020-02-10 14:08] LABS: Basophils # (auto) 0.04 K/uL (0-0.2); Basophils % (auto) 0.5 %; Eosinophils # (auto) 0.15 K/uL (0-0.5); Eosinophils % (auto) 1.9 %; Hematocrit (blood only) 43.8 % (37-47); Hemoglobin 14.5 g/dL (12.0-16.0); Immature Granulocytes # (auto) 0.02 K/uL (0.00-0.02); Immature Granulocytes % (auto) 0.3 %; Lymphocytes # (auto) 2.55 K/uL (1.2-3.4); Lymphocytes % (auto) 32.5 %; Mean Corpuscular Hgb Conc 33.1 g/dL (32-36); Mean Corpuscular Volume 93.8 fL (80-100); Monocytes # (auto) 0.64 K/uL (0.11-0.59); Monocytes % (auto) 8.2 %; Neutrophils # (auto) 4.44 K/uL (1.4-6.5); Neutrophils % (auto) 56.6 %; Platelet Count 334 K/uL (130-400); RDW Coefficient of Variation 13.7 % (11.5-14.5); RDW Standard Deviation 46.8 fL (36.4-46.3); Red Blood Count 4.67 M/uL (4.2-5.4); White Blood Count 7.84 K/uL (4.8-10.8)
[2020-02-10 14:16] LABS: Albumin Level 3.7 gm/dl (3.4-5.0); BUN Creatinine Ratio 17.5 (10-20); Calcium 9.1 mg/dl (8.5-10.1); Creatinine Clr Calc Pharmacy 116.2 ml/min; Est GFR (African American) 116.4; Est GFR (Non-African American) 100.5
[2020-02-10 14:19] LABS: Bilirubin,Total 0.2 mg/dl (0.2-1); Globulin 3.7 gm/dl (2.5-4.0); Total Protein 7.4 gm/dl (6.4-8.2)
--- NOTE | 2020-02-10 14:47 | Emergency Department Note ---
ED Provider Note NAME: TATE OSBORNE AGE: 54 SEX: F ARRIVES VIA: Walk-In INFORMANT: Patient, ED PROVIDER(S): Carlos Ruiz MD CHIEF COMPLAINT: Abdominal pain IMPRESSION: Upper abdominal pain Nausea and vomiting Ileus UTI History of small bowel obstruction PLAN: Disposition: Admitted Condition: Good MEDICAL DECISION MAKING: Patient presented with upper abdominal pain. She has a history of obstruction due to adhesions in the past. She was in the ER 2 days ago and work-up revealed possible low-grade obstruction however the patient was tolerating orals at that time. Unfortunately she has not been able to eat or drink well at home. She is nauseated. She has moderate upper pain. Blood work was unremarkable. Urinalysis did raise some concerns for infection. The patient had a CT scan which appeared improved however there was still dilated loop of bowel in the upper abdomen where she was tender. The patient did not feel comfortable going home. She was hydrated. She received IV Dilaudid and Zofran. This did help with her symptoms. I did consult with the hospitalist service from [facility]. The patient was evaluated in the ER for further management. The hospital service did order IV Cipro for her UTI. Triage Nursing notes reviewed and agree them. [Prior medical records reviewed] the patient had a questionable low-grade obstruction on CT imaging. Vital Signs: reviewed and remarkable for [no significant abnormalities] Differential diagnosis: Obstruction, appendicitis, ovarian cyst, ovarian torsion, ectopic , TOA, PID, infections, diverticulitis, UTI, mesenteric ischemia, aortic pathology, inflammatory bowel disease, renal colic, PUD, pancreatitis, biliary pathology, hernia, volvulus, constipation, as well as other pathologies. ER treatment provided: Dilaudid Zofran Normal saline hydration Diagnostics interpreted by me: Cardiac monitoring ordered: The patient was placed on continuous cardiac monitoring and observed. It revealed a normal sinus rhythm at 72 without ectopy or evidence of dysrhythmia. Laboratory studies: An unremarkable CBC and chemistry panel. Urinalysis concerning for infection. Imaging studies: CT scan of the abdomen pelvis showed improvement of the findings noted 2 days ago. The patient has dilated loop of bowel in the upper abdomen in the area of pain. Consultation(s): Case was discussed with the [facility] hospitalist service. The patient will be admitted by Dr. Quigley. HPI: The patient is a 54 year old female who presents to the Emergency Room with complaints of abdominal pain. This started 3 days ago and is worsening. The patient also notes the following associated symptoms, constipation, nausea and vomiting. The patient has reglan without success relieving factors. Current pain is rated as 6/10. She was here [address] imaging questioned a low grade obstruction. She was tolerating PO at the time and sent home on clear liquids. Pt denies LOC, headache, fevers, diaphoresis, visual changes, neck pain, chest pain, breathing difficulties, back pain, melena, hematochezia, urinary symptoms, numbness, weakness, lymphadenopathy, rash, or other complaints. ROS: See above HPI for pertinent positives & negatives. A total of 10 systems reviewed and were otherwise negative. PAST MEDICAL HISTORY:See Below , migraine, MS, obstruction, anemia PAST SURGICAL HISTORY:See Below, gastric bypass FAMILY HISTORY:Cancer SOCIAL HISTORY:No smoking. Traveled on a cruise in December HOME MEDICATIONS:See Below ALLERGIES:See Below VITALS:[See Below] PHYSICAL EXAMINATION: GENERAL: Awake, alert, uncomfortable appearing, in no distress HENT: Normocephalic, atraumatic. Oropharynx unremarkable. EYES: Normal conjunctiva. Sclera non-icteric. NECK: Inspection normal. Non-tender. Supple. No nuchal rigidity. FROM. No masses. RESPIRATORY: Clear to auscultation. No wheezes. No rales. Normal respiratory effort. CARDIAC: Normal rate. Normal rhythm. No murmurs. No rubs. Extremities warm and well perfused. Pulses equal. No JVD. GI: Soft, mildly-distended. Upper abdominal tenderness to palpation. No rebound or guarding. No masses. RECTAL: Deferred. MUSCULOSKELETAL: Atraumatic. Chest examination reveals no tenderness. The back is symmetrical on inspection without obvious abnormality. There is no CVA tenderness to palpation. No joint edema. LOWER EXTREMITIES: Calves are equal size bilaterally and non-tender. No edema. No discoloration. NEURO: Normal sensorium. No sensory or motor deficits noted. SKIN: No rash or jaundice noted. ED COURSE: Procedures: [none] [Critical Care:] [None] Impression & Plan Upper abdominal pain, Ileus, Nausea & vomiting, UTI (urinary tract infection) Past Med/Surg History Medical History Depression with anxiety Fatigue Goiter Iron deficiency anemia Kidney stone Migraine without aura, not intractable, without status migrainosus Multiple sclerosis Optic neuritis (Resolved) Osteoporosis Pulmonary nodule Restless leg syndrome Thyroid nodule (Chronic) Urinary incontinence Vitamin B12 deficiency Vitamin D deficiency Surgical History History of gastric bypass Family History Mother Diabetes Social History Preferred Language: Sami Communication Ability: Effective Fire Sprinkler Fitter Required: No Beliefs That Will Affect Care: None Current Living Situation: Spouse Other Information That Helps Us Care for You: No Feels Safe at Home: Yes Safety Concerns: Feels Safe At This Time Smoking Status: Former smoker Tobacco Type: cigarettes ; Do You Dip or Chew Tobacco: No ; Smoking End Date: October 2019 ; Second Hand Exposure: No ; Tobacco Cessation Education Requested by Patient: No Hx Alcohol Use: Yes Hx Substance Use: No Results & Data Vital Signs Vital Signs - 24 hr 02/10/20 13:39 02/10/20 15:25 02/10/20 17:06 Temperature 36.8 C Temperature Source Oral Pulse Rate 81 Pulse Rate [Left] 71 79 Pulse Rhythm [Left] Regular Respiratory Rate 20 15 18 Respiratory Effort / Characteristics Non-Labored Spontaneous Non-Labored Non-Labored Spontaneous Respiratory Depth Normal Normal Normal Respiratory Pattern Regular Regular Regular Blood Pressure 169/106 H Blood Pressure [Right Arm] 136/88 149/80 H Blood Pressure Mean 127 Blood Pressure Mean [Right Arm] 104 103 Blood Pressure Position Sitting Blood Pressure Position [Right Arm] Lying Pulse Oximetry 98 97 99 Oxygen Delivery Method Room Air Room Air Room Air Sepsis Recent Fever Within 48 Hours No Sepsis New/Unexplained Change in Mental Status No Sepsis Action Taken by Nursing No Action Required Laboratory Data Result diagrams: 02/10/20 13:55 02/10/20 13:55 Lab Results 02/10/20 02/10/20 02/10/20 Range/Units 13:55 13:55 17:07 WBC 7.84 (4.8-10.8) K/uL RBC 4.67 (4.2-5.4) M/uL Hgb 14.5 (12.0-16.0) g/dL Hct 43.8 (37-47) % MCV 93.8 (80-100) fL MCH 31.0 (25-34) pg MCHC 33.1 (32-36) g/dL RDW Std Deviation 46.8 H (36.4-46.3) fL RDW Coeff of Delphine 13.7 (11.5-14.5) % Plt Count 334 (130-400) K/uL MPV 10.0 (7.4-10.4) fL Immature Gran % (Auto) 0.3 % Neut % (Auto) 56.6 % Lymph % (Auto) 32.5 % Ness % (Auto) 8.2 % Eos % (Auto) 1.9 % Baso % (Auto) 0.5 % Immature Gran # (Auto) 0.02 (0.00-0.02) K/uL Neut # (Auto) 4.44 (1.4-6.5) K/uL Lymph # (Auto) 2.55 (1.2-3.4) K/uL Ness # (Auto) 0.64 H (0.11-0.59) K/uL Eos # (Auto) 0.15 (0-0.5) K/uL Baso # (Auto) 0.04 (0-0.2) K/uL Sodium 140 (136-145) mmol/L Potassium 4.0 (3.5-5.1) mmol/L Chloride 110 H (98-107) mmol/L Carbon Dioxide 26 (21-32) mmol/L Anion Gap 4.0 (3-11) BUN 11 (7-18) mg/dl Creatinine 0.64 (0.6-1.2) mg/dl Est Cr Clr Drug Dosing 116.2 ml/min Est GFR ( Amer) 116.4 Est GFR (Non-Af Amer) 100.5 BUN/Creatinine Ratio 17.5 (10-20) Glucose 94 (70-99) mg/dl Calcium 9.1 (8.5-10.1) mg/dl Total Bilirubin 0.2 (0.2-1) mg/dl AST 16 (15-37) U/L ALT 32 (12-78) U/L Alkaline Phosphatase 120 H (45-117) U/L Total Protein 7.4 (6.4-8.2) gm/dl Albumin 3.7 (3.4-5.0) gm/dl Globulin 3.7 (2.5-4.0) gm/dl Albumin/Globulin Ratio 1.0 (0.9-2) Lipase 182 (73-393) U/L Urine Color Yellow Urine Appearance Clear (Clear) Urine pH 6.0 (4.5-7.5) Ur Specific [place] 1.027 (1.000-1.030) Urine Protein Negative (Negative) Urine Glucose (UA) Negative (Negative) Urine Ketones Trace H (Negative) Urine Blood 2+ H (Negative) Urine Nitrite Positive A (Negative) Urine Bilirubin Negative (Negative) Urine Urobilinogen Negative (Negative) Ur Leukocyte Esterase Negative (Negative) Urine WBC (Auto) 1-5 (0-5) /hpf Urine RBC (Auto) 0-4 (0-4) /hpf U Hyaline Cast (Auto) 0 (0-5) /lpf U Epithel Cells (Auto) 20-30 H (0-5) /lpf Urine Bacteria (Auto) 4+ H (Negative) Urine Crystals Not Reportable Calcium Oxalate Crystal Present A (None Prsent) Administered Medications Acetaminophen (Tylenol) 1,000 mg PO Q8 JAMMIE Stop: 03/11/20 21:59 Last Admin: 02/10/20 21:28 Dose: 1,000 mg Documented by: [id number] Ciprofloxacin (Cipro) 400 mg in 200 mls @ 100 mls/hr IV Q12H JAMMIE; Protocol Stop: 02/15/20 19:59 Last Admin: 02/10/20 20:50 Dose: 100 mls/hr Documented by: [id number] Dextrose/Sodium Chloride (D5w And Nss) 1,000 mls @ 125 mls/hr IV .Q8H JAMMIE Stop: 03/11/20 20:14 Last Admin: 02/10/20 20:50 Dose: 125 mls/hr Documented by: [id number] Discontinued Medications Hydromorphone HCl (Dilaudid) 0.5 mg IV Q15M PRN PRN Reason: Pain Stop: 02/24/20 14:47 Last Admin: 02/10/20 19:31 Dose: 0.5 mg Documented by: [id number] Admin: 02/10/20 14:57 Dose: 0.5 mg Documented by: [id number] Sodium Chloride (Nss 1000ml) 1,000 mls @ 999 mls/hr IV .Q1H1M ONE Stop: 02/10/20 15:48 Last Infusion: 02/10/20 16:07 Dose: 0 mls/hr Documented by: [id number] Admin: 02/10/20 14:58 Dose: 999 mls/hr Documented by: [id number] Ondansetron HCl (Zofran) 4 mg IV NOW STA Stop: 02/10/20 14:49 Last Admin: 02/10/20 14:57 Dose: 4 mg Documented by: [id number] Ondansetron HCl (Zofran) Confirm Administered Dose 4 mg .ROUTE .STK-MED ONE Stop: 02/10/20 19:34 Last Admin: 02/10/20 19:34 Dose: 4 mg Documented by: [id number] Discharge Plan Visit Data *Final* Discharge Date/Time: 02/10/20 18:50 Chief Complaint: GI Assessment Stated Complaint: NAUSEA,BACK PAIN,BLOATING,CONSTIPATION,SENT BY DR SOLIZ Provider: Carlos Ruiz Discharge Problem: Upper abdominal pain, Ileus, Nausea & vomiting, UTI (urinary tract infection) Patient Disposition: Admitted As Inpatient Discharge Instructions Interventions: ED Discharge Assessment Last Done: 02/10/20 18:50
[2020-02-10] MEDS ORDERED: ONDANSETRON INJ 2 MG/ML 2 ML VIAL IV STA (14:48)
[2020-02-10] MEDS ORDERED: SODIUM CHLORIDE 0.9% 1000ML 1,000 ML IV ONE (14:48)
[2020-02-10] MEDS: HYDROmorphone INJ 0.5 MG/0.5 ML SYR IV PRN ×2 (14:57→19:31)
--- NOTE | 2020-02-10 15:27 | CT Scan Report ---
CT SCAN OF THE ABDOMEN AND PELVIS WITHOUT IV CONTRAST CLINICAL HISTORY: Generalized abdominal pain. COMPARISON STUDY: Abdominal CT dated 02/08/2020. TECHNIQUE: CT scan of the abdomen and pelvis is performed from the lung bases to the proximal femora. Images are reviewed in the axial, sagittal, and coronal planes. IV contrast was not administered for this examination as per the referring clinician. Note that the examination was performed in suboptim al fashion without oral and IV contrast. A dose lowering technique was utilized adhering to the princ ipljostin of ANDRIY. CT DOSE: 1256.66 mGy.cm FINDINGS: Lung bases: The heart is normal in size and without pericardial effusion. The lung bases are clear no ting bibasilar scarring/atelectasis. Liver: The unenhanced liver is normal in size, contour, and attenuation. There is no intrahepatic michelle iary ductal dilatation. Gallbladder: Surgically absent noting clips in the gallbladder fossa. Spleen: Normal in size and attenuation. There is a 10 mm peripherally calcified splenic artery aneury sm. Pancreas: Unremarkable. Adrenal glands: Unremarkable. Kidneys: The unenhanced kidneys are normal in size and without hydronephrosis. There is a punctate no nobstructing calculus in the lower pole of the left kidney. There is no evidence of contour deforming renal mass lesion. Abdominal vasculature: The abdominal aorta is normal in course and caliber. Stomach and bowel: Postoperative changes consistent with a history of Keon-en-Y gastric bypass surger y. No bowel obstruction is seen. There is advanced colonic diverticulosis without CT evidence of acut e diverticulitis. Mild dilatation at the distal anastomosis is likely related to focal dilatation. Th is is unchanged from previous. The appendix is not identified and reported surgically absent Peritoneum: There is no intraperitoneal free air or abdominal ascites. Lymphadenopathy: None. Pelvic viscera: The bladder is normal as visualized. The uterus is surgically absent. No adnexal lesi on is seen. Skeletal structures: No lytic or blastic lesions are seen. IMPRESSION: 1. There are no acute infectious or inflammatory findings in the abdomen or pelvis. 2. Postoperative change is consistent with a history of Keon-en-Y gastric bypass surgery. No bowel ob struction is seen. Distention of proximal small bowel loops has improved from 02/08/2020. 3. Advanced colonic diverticulosis without CT evidence of acute diverticulitis. 4. There is a punctate nonobstructing left or a calculus. 5. Additional findings as above. ACT 112: Negative or not required by law. Electronically signed by: Antwon Lopez M.D. 02/10/2020 3:25 PM
[2020-02-10 17:21] LABS: Appearance Urine Clear (Clear); Bacteria Urine Automated 4+ (Negative); Bilirubin Urine Negative (Negative); Blood Urine 2+ (Negative); Cast Urine Automated 0 /lpf (0-5); Color Urine Yellow; Epithelial Cell Urine Auto 20-30 /lpf (0-5); Glucose Urine UA Negative (Negative); Ketones Urine Trace (Negative); Leukocyte Esterase Urine Negative (Negative); Nitrite Urine Positive (Negative); Protein Urine Negative (Negative); RBC Urine Automated 0-4 /hpf (0-4); Specific Gravity Urine 1.027 (1.000-1.030); Urobilinogen Urine Negative (Negative)
[2020-02-10] MEDS ORDERED: KETOROLAC TROMETHAMINE 15 MG/ML VIAL IV PRN (17:33)
[2020-02-10 17:44] LABS: Calcium Oxalate Crystals Urine Present (None Prsent)
--- NOTE | 2020-02-10 17:47 | History & Physical Report ---
Date of Service February 10, 2020 Assessment & Plan (1) Abdominal pain: Recent recovery from small bowel obstruction seen on CT scan 2 days ago during ER visit. Repeat abdominal CT today does not reveal an obvious acute infectious or inflammatory finding in the abdomen or pelvis that may be causing the pain. Postoperative changes consistent with a history of Keon-en-Y gastric bypass surgery are seen without any bowel obstruction. There is distention of the proximal small bowel loops noted which has improved from the prior CT on 02/08/2020. There is a punctate nonobstructing left calculus in the lower pole of the left kidney. With a history of bowel ischemia in the past and persistent pain, will check a lactate. Currently has no white blood cell count or other lab abnormalities that are concerning. Continue with supportive care including bowel rest, antiemetics and pain control as needed. Surgical consult to ensure patient is safe to go home. Appreciate recommendations on advancing diet when tolerated. (2) History of gastric bypass: Gastric bypass surgery 15 years ago. (3) Vitamin D deficiency: Patient on biweekly high-dose vitamin D. Will check 25-hydroxy vitamin D in a.m. to ensure she is not taking toxic levels which may be contributing to belly pain. (4) Multiple sclerosis: Patient reports some symptoms but is not on any disease modifying therapy. She follows with Dr. Hinds, neurology. (5) E. coli UTI: Recent UTI symptoms consistent with E. coli UTI found on culture 2 days ago. Started the patient on ciprofloxacin. (6) DVT prophylaxis: Lovenox Full code Disposition-plan for home tomorrow pending clinical improvement overnight and surgical recommendations. Paz Quigley DO [facility] Hospitalist History of Present Illness Chief Complaint: Abdominal pain Primary Care Provider: Juventino Chun MD 54-year-old female with a history of bowel ischemia and recurrent small bowel obstructions in the past presents with persistent abdominal pain. She reports her bowels changed approximately 1.5 weeks ago. She reports her last bowel movement was 5 days ago and she only recently started passing gas today. She was seen in the ER 2 nights ago because of this upper abdominal bilateral pain that was severe and radiating into her back bilaterally. She thought she had a kidney stone at that time and work-up actually revealed a small bowel obstruction. However because she could eat and she was feeling better from a pain standpoint she was sent home. The notes state that she was given the option to stay however, the patient states that she was not. She reports having pain persistently despite trying to take Tylenol and she even tried to contact [facility] general surgery group. The pain persisted and she reported vomiting yesterday but was able to keep down some clear liquids this morning. She did have some nausea on arrival which is improved with Zofran. Pain is improved with Dilaudid but is still present. She does take naproxen as needed. Recent urine culture from that ER visit revealed positive E. coli UTI. She does report increased urinary incontinence and inability to hold her urine over the last few days. She denies any burning or other UTI symptoms. She denies any fevers or chills. She otherwise denies any chest pain, shortness of breath or other issues at this time Allergies Allergy/AdvReac Type Severity Reaction Status Date / Time cephalexin Allergy Unknown RASH HIVES Unverified 02/10/20 15:32 TROUBLE BREATHING ITCHY Cephalosporins Allergy Unknown Rash,hives, Verified 02/10/20 15:32 trouble breathing and itchiness Home Medications Home Medications Medication Instructions Recorded Confirmed Type calcium citrate-vitamin D3 2 tab PO QAM 02/08/20 02/10/20 History [Citracal Regular] dextroamphetamine-amphetamine 20 mg PO QAM PRN 02/08/20 02/10/20 History ergocalciferol (vitamin D2) 50,000 unit PO TUTH 02/08/20 02/10/20 History naproxen sodium [Aleve] 220 mg PO Q12H PRN 02/10/20 02/10/20 History pantoprazole [Protonix] 40 mg PO QAM 02/10/20 02/10/20 History Past Med/Surg History Medical History Depression with anxiety Fatigue Goiter Iron deficiency anemia Kidney stone Migraine without aura, not intractable, without status migrainosus Multiple sclerosis Optic neuritis (Resolved) Osteoporosis Pulmonary nodule Restless leg syndrome Thyroid nodule (Chronic) Urinary incontinence Vitamin B12 deficiency Vitamin D deficiency Surgical History History of gastric bypass Family History Mother Diabetes Social History Preferred Language: Indonesian Communication Ability: Effective Merchandise Distributor Required: No Beliefs That Will Affect Care: None Current Living Situation: Spouse Other Information That Helps Us Care for You: No Feels Safe at Home: Yes Safety Concerns: Feels Safe At This Time Smoking Status: Former smoker Tobacco Type: cigarettes ; Do You Dip or Chew Tobacco: No ; Smoking End Date: October 2019 ; Second Hand Exposure: No ; Tobacco Cessation Education Requested by Patient: No Hx Alcohol Use: Yes Hx Substance Use: No Review of Systems Review of Systems: All systems reviewed & are unremarkable except as noted in HPI & below Physical Exam Physical Exam: CONSTITUTIONAL: obese, vitals as above, generally well- appearing EYES: normal conjunctivae, no scleral icterus ENT: external ear and nose normal RESPIRATORY: clear to auscultation bilaterally, no crackles, rales or wheezes, normal respiratory effort CARDIOVASCULAR: regular rate and rhythm, S1 and 2 heard without murmurs, gallops or rubs, no JVD, no peripheral edema GASTROINTESTINAL: normal bowel sounds, soft, tender to palpation in LUQ, RUQ and epigastric area. Nondistended MUSCULOSKELETAL: strength 5/5 throughout, head is normocephalic and atraumatic SKIN: warm and dry, generalized dermatitis NEUROLOGIC: CN 2-12 grossly intact, no sensory deficit, normal cognition, normal speech, no gross focal deficits. PSYCHIATRIC: alert cooperative and oriented to person, place and time. Results & Data Vital Signs (Past 12 Hours) Vital Signs Temp Pulse Pulse Resp BP BP Pulse Ox 02/10/20 17:06 79 18 149/80 H 99 02/10/20 15:25 71 15 136/88 97 02/10/20 13:39 36.8 C 81 20 169/106 H 98 Laboratory Results Short CBC 02/10/20 Range/Units 13:55 WBC 7.84 (4.8-10.8) K/uL Hgb 14.5 (12.0-16.0) g/dL Hct 43.8 (37-47) % Plt Count 334 (130-400) K/uL BMP 02/10/20 13:55 Sodium 140 Potassium 4.0 Chloride 110 H Carbon Dioxide 26 BUN 11 Creatinine 0.64 Glucose 94 Calcium 9.1 Liver Function 02/10/20 Range/Units 13:55 Total Bilirubin 0.2 (0.2-1) mg/dl AST 16 (15-37) U/L ALT 32 (12-78) U/L Alkaline Phosphatase 120 H (45-117) U/L Albumin 3.7 (3.4-5.0) gm/dl Urine 02/10/20 Range/Units 17:07 Urine Color Yellow Urine Appearance Clear (Clear) Urine pH 6.0 (4.5-7.5) Ur Specific [place] 1.027 (1.000-1.030) Urine Protein Negative (Negative) Urine Glucose (UA) Negative (Negative) Diagnostic Findings CT SCAN OF THE ABDOMEN AND PELVIS WITHOUT IV CONTRAST FINDINGS: Lung bases: The heart is normal in size and without pericardial effusion. The lung bases are clear noting bibasilar scarring/atelectasis. Liver: The unenhanced liver is normal in size, contour, and attenuation. There is no intrahepatic biliary ductal dilatation. Gallbladder: Surgically absent noting clips in the gallbladder fossa. Spleen: Normal in size and attenuation. There is a 10 mm peripherally calcified splenic artery aneurysm. Pancreas: Unremarkable. Adrenal glands: Unremarkable. Kidneys: The unenhanced kidneys are normal in size and without hydronephrosis. There is a punctate nonobstructing calculus in the lower pole of the left kidney. There is no evidence of contour deforming renal mass lesion. Abdominal vasculature: The abdominal aorta is normal in course and caliber. Stomach and bowel: Postoperative changes consistent with a history of Keon-en-Y gastric bypass surgery. No bowel obstruction is seen. There is advanced colonic diverticulosis without CT evidence of acute diverticulitis. Mild dilatation at the distal anastomosis is likely related to focal dilatation. This is unchanged from previous. The appendix is not identified and reported surgically absent Peritoneum: There is no intraperitoneal free air or abdominal ascites. Lymphadenopathy: None. Pelvic viscera: The bladder is normal as visualized. The uterus is surgically absent. No adnexal lesion is seen. Skeletal structures: No lytic or blastic lesions are seen. IMPRESSION: 1. There are no acute infectious or inflammatory findings in the abdomen or pelvis. 2. Postoperative change is consistent with a history of Keon-en-Y gastric bypass surgery. No bowel obstruction is seen. Distention of proximal small bowel loops has improved from 02/08/2020. 3. Advanced colonic diverticulosis without CT evidence of acute diverticulitis. 4. There is a punctate nonobstructing left or a calculus. 5. Additional findings as above. Medications Administered Current Inpatient Medications Acetaminophen (Tylenol) 1,000 mg PO Q8 [facility] Stop: 03/11/20 21:59 Amphetamine/Dextroamphetamine (Adderall) 20 mg PO QAM PRN PRN Reason: Fatigue Stop: 02/24/20 20:25 Enoxaparin Sodium (Lovenox) 40 mg SQ QAM [facility] Stop: 03/12/20 08:59 Hydromorphone HCl (Dilaudid) 0.5 mg IV Q4H PRN PRN Reason: Severe Pain Stop: 02/24/20 14:47 Ciprofloxacin (Cipro) 400 mg in 200 mls @ 100 mls/hr IV Q12H [facility]; Protocol Stop: 02/15/20 19:59 Dextrose/Sodium Chloride (D5w And Nss) 1,000 mls @ 125 mls/hr IV .Q8H [facility]AM[facility] Stop: 03/11/20 20:14 Ondansetron HCl (Zofran) 4 mg IV Q6H PRN PRN Reason: Nausea Stop: 03/11/20 19:34 Pantoprazole Sodium (Protonix) 40 mg PO QAM JAMMIE Stop: 03/12/20 08:59 Tramadol HCl (Ultram) 50 mg PO Q4H PRN PRN Reason: Moderate Pain Stop: 03/11/20 20:05 Code Status & VTE Plan Code Status Full Code VTE Prophylaxis Plan VTE Prophylaxis will be ordered: Yes (1) Abdominal pain Abdominal location: epigastric Qualified Code(s): R10.13 - Epigastric pain
[2020-02-10] MEDS ORDERED: ACETAMINOPHEN 325 MG TAB PO PRN (19:14)
[2020-02-10] MEDS ORDERED: ONDANSETRON INJ 2 MG/ML 2 ML VIAL ONE (19:33)
[2020-02-10] MEDS ORDERED: ONDANSETRON INJ 2 MG/ML 2 ML VIAL IV PRN (19:35)
[2020-02-10] MEDS ORDERED: TRAMADOL HCL 50 MG TABLET PO PRN (20:06)
[2020-02-10] MEDS ORDERED: HYDROmorphone INJ 0.5 MG/0.5 ML SYR IV PRN (20:09)
[2020-02-10] MEDS ORDERED: AMPHETAMINE ASP/SULF/DEXTRAMPH 20 MG TAB PO PRN (20:26)
[2020-02-10] MEDS: D5W AND NSS 1,000 ML IV SCH (20:50)
[2020-02-10] MEDS: CIPROFLOXACIN / D5W 400 MG/200 ML BAG IV SCH (20:50)
[2020-02-10] MEDS: ACETAMINOPHEN 500 MG TAB PO SCH (21:28)
[2020-02-11] MEDS: D5W AND NSS 1,000 ML IV SCH ×2 (05:00→08:02)
[2020-02-11] MEDS: ACETAMINOPHEN 500 MG TAB PO SCH ×3 (05:01→21:35)
[2020-02-11 06:02] LABS: Hematocrit (blood only) 38.6 % (37-47); Hemoglobin 12.5 g/dL (12.0-16.0); Mean Corpuscular Hemoglobin 30.6 pg (25-34); Mean Corpuscular Hgb Conc 32.4 g/dL (32-36); Mean Corpuscular Volume 94.4 fL (80-100); Mean Platelet Volume 9.7 fL (7.4-10.4); Platelet Count 283 K/uL (130-400); RDW Coefficient of Variation 13.8 % (11.5-14.5); RDW Standard Deviation 47.9 fL (36.4-46.3); Red Blood Count 4.09 M/uL (4.2-5.4); White Blood Count 5.78 K/uL (4.8-10.8)
[2020-02-11 06:33] LABS: BUN Creatinine Ratio 12.4 (10-20); Calcium 8.4 mg/dl (8.5-10.1); Creatinine Clr Calc Pharmacy 126.1 ml/min; Est GFR (African American) 119.6; Est GFR (Non-African American) 103.2; Potassium 3.9 mmol/L (3.5-5.1)
[2020-02-11 07:03] LABS: Estimated Average Glucose 117 mg/dl; Hemoglobin A1C 5.7 % (4.5-5.6)
[2020-02-11] MEDS: CIPROFLOXACIN / D5W 400 MG/200 ML BAG IV SCH (08:04)
[2020-02-11] MEDS: PANTOprazole 40 MG TAB PO SCH (08:05)
[2020-02-11] MEDS: ENOXAPARIN INJ 40 MG/0.4 ML SYR SQ SCH (08:05)
--- NOTE | 2020-02-11 11:36 | Surgery Consultation ---
Date of Consultation February 11, 2020 Assessment & Plan (1) Upper abdominal pain: feeling better today other than headache. I'm concerned about her possibly having a gastric uler +/- anastomotic stricture. she takes protonix daily. will add carafate. we discussed minimal use of NSAIDS after gastric bypass as well as eating first ( she currently takes Alieve in morning on an empty stomach). recommend EGD to evaluate however she would like to go home. if she tolerates liquids I think it would be ok to go home and have EGD done as an out-pt [facility] covering weekend if any concerns. (2) Nausea & vomiting: History of Present Illness Attending Physician: Paz Quigley DO History of Present Illness pt with multiple medical /surgical issues. had been having pain as well as n/v. several days ago was in ER with dilated/psbo of upper GI tract. admitted yesterday with similar symptoms although CT scan showed improvement with no evidence of bowel obstruction. pt admittedly uses alot of naproxen and has a hx of gastric bypass for morbid obesity as well as a hx of gastric ulcer. Allergies Allergy/AdvReac Type Severity Reaction Status Date / Time cephalexin Allergy Unknown RASH HIVES Unverified 02/10/20 15:32 TROUBLE BREATHING ITCHY Cephalosporins Allergy Unknown Rash,hives, Verified 02/10/20 15:32 trouble breathing and itchiness Home Medications Home Medications Medication Instructions Recorded Confirmed Type calcium citrate-vitamin D3 2 tab PO QAM 02/08/20 02/10/20 History [Citracal Regular] dextroamphetamine-amphetamine 20 mg PO QAM PRN 02/08/20 02/10/20 History ergocalciferol (vitamin D2) 50,000 unit PO TUTH 02/08/20 02/10/20 History naproxen sodium [Aleve] 220 mg PO Q12H PRN 02/10/20 02/10/20 History pantoprazole [Protonix] 40 mg PO QAM 02/10/20 02/10/20 History sucralfate 10 ml PO Q6H 28 Days #1120 ml 02/11/20 Rx Patient History Medical History Depression with anxiety Fatigue Goiter Iron deficiency anemia Kidney stone Migraine without aura, not intractable, without status migrainosus Multiple sclerosis Optic neuritis (Resolved) Osteoporosis Pulmonary nodule Restless leg syndrome Thyroid nodule (Chronic) Urinary incontinence Vitamin B12 deficiency Vitamin D deficiency Surgical History History of gastric bypass Family History Mother Diabetes Social History Preferred Language: Italian Communication Ability: Effective Comb Machine Operator Required: No Beliefs That Will Affect Care: None Current Living Situation: Spouse Other Information That Helps Us Care for You: No Feels Safe at Home: Yes Safety Concerns: Feels Safe At This Time Smoking Status: Former smoker Tobacco Type: cigarettes ; Do You Dip or Chew Tobacco: No ; Smoking End Date: October 2019 ; Second Hand Exposure: No ; Tobacco Cessation Education Requested by Patient: No Hx Alcohol Use: Yes Hx Substance Use: No Physical Exam Constitutional: WD/WN, vitals as above no acute distress and not ill appearing Eyes: PERRL, conjunctivae normal, anicteric sclerae EOM intact bilaterally ENMT: external ear and nose normal, oropharynx normal Ears: no hearing impairment Neck: trachea midline, no thyromegaly Respiratory: normal respiratory effort; no respiratory distress and does not use accessory muscles Cardiovascular: Rate/Rhythm: regular rate and regular rhythm Gastrointestinal (Abdomen): soft. minimal upper abdominal ttp. no g/r/r. Skin: no rashes, warm and dry Psychiatric: Orientation: alert, oriented x 3 and cooperative Results & Data Vital Signs (Past 12 Hours) Vital Signs Temp Pulse Resp BP Pulse Ox 02/11/20 07:28 36.8 C 70 18 114/69 95 PG Care Time/CCT Total # of Minutes Spent Total Time Spent with Patient: Total time spent is greater than 50% in coordination of care (as documented) at patient's floor/unit and/or counseling patient: Coding Level of Care Code 59907 Inpt Consult Level 4 Diagnoses Upper abdominal pain R10.10 Nausea & vomiting R11.2
[2020-02-11] MEDS: SUCRALFATE 1 GM/10 ML UDC PO SCH ×3 (13:40→20:07)
--- NOTE | 2020-02-11 15:28 | Hospitalist Progress Note ---
Date of Service February 11, 2020 Assessment & Plan (1) Abdominal pain: abdominal pain improved. tolerating clears. advance to solids and monitor for any issues overnight. surgery concerned for stomach ulcer per patient and started carafate. burning pain in stomach so will monitor for a res ponse to this. (2) History of gastric bypass: Gastric bypass surgery 15 years ago. (3) Vitamin D deficiency: Patient on biweekly high-dose vitamin D. Vit D is 17 which is low enough to continue supplementation at current dosage. (4) Multiple sclerosis: Patient reports some symptoms but is not on any disease modifying therapy. She follows with Dr. Hinds, neurology. (5) E. coli UTI: Recent UTI symptoms consistent with E. coli UTI found on culture 3 days ago. Started the patient on ciprofloxacin. Transition to PO now that she is eating. (6) DVT prophylaxis: Lovenox Full code Disposition-plan for home tomorrow pending clinical improvement Paz Quigley DO [facility] Hospitalist Admission and Anticipated Discharge Date Admission Date: February 10, 2020 Subjective Still has some residual discomfort in the abdomen but this is greatly improved. She is tolerating clears well and feels ok to try solids. Surgery started carafate. Pt has otherwise no complaints at this time. Abdominal discomfort is described as a burning feeling separate from her normal heartburn. Review of Systems Review of Systems: All systems reviewed & are unremarkable except as noted in Subjective Physical Exam Physical Exam: CONSTITUTIONAL: obese, vitals as above, generally well- appearing EYES: normal conjunctivae, no scleral icterus ENT: external ear and nose normal RESPIRATORY: clear to auscultation bilaterally, no crackles, rales or wheezes, normal respiratory effort CARDIOVASCULAR: regular rate and rhythm, S1 and 2 heard without murmurs, gallops or rubs, no JVD, no peripheral edema GASTROINTESTINAL: normal bowel sounds, soft, nontender. Nondistended MUSCULOSKELETAL: strength 5/5 throughout, head is normocephalic and atraumatic SKIN: warm and dry, generalized dermatitis NEUROLOGIC: CN 2-12 grossly intact, no sensory deficit, normal cognition, normal speech, no gross focal deficits. PSYCHIATRIC: alert cooperative and oriented to person, place and time. Results & Data ([facility]) Vital Signs (Past 12 Hours) Vital Signs Temp Pulse Resp BP Pulse Ox 02/11/20 07:28 36.8 C 70 18 114/69 95 Laboratory Results Short CBC 02/11/20 Range/Units 05:46 WBC 5.78 (4.8-10.8) K/uL Hgb 12.5 (12.0-16.0) g/dL Hct 38.6 (37-47) % Plt Count 283 (130-400) K/uL BMP 02/11/20 05:46 Sodium 141 Potassium 3.9 Chloride 111 H Carbon Dioxide 27 BUN 7 Creatinine 0.59 L Glucose 105 H Calcium 8.4 L Urine 02/10/20 Range/Units 17:07 Urine Color Yellow Urine Appearance Clear (Clear) Urine pH 6.0 (4.5-7.5) Ur Specific [place] 1.027 (1.000-1.030) Urine Protein Negative (Negative) Urine Glucose (UA) Negative (Negative) Medications Administered Current Inpatient Medications Acetaminophen (Tylenol) 1,000 mg PO Q8 [facility] Stop: 03/11/20 21:59 Last Admin: 02/11/20 13:38 Dose: 1,000 mg Documented by: Amphetamine/Dextroamphetamine (Adderall) 20 mg PO QAM PRN PRN Reason: Fatigue Stop: 02/24/20 20:25 Ciprofloxacin (Cipro) 500 mg PO BID [facility]; Protocol Stop: 02/15/20 09:01 Enoxaparin Sodium (Lovenox) 40 mg SQ QAM [facility] Stop: 03/12/20 08:59 Last Admin: 02/11/20 08:05 Dose: 40 mg Documented by: Hydromorphone HCl (Dilaudid) 0.5 mg IV Q4H PRN PRN Reason: Severe Pain Stop: 02/24/20 14:47 Ondansetron HCl (Zofran) 4 mg IV Q6H PRN PRN Reason: Nausea Stop: 03/11/20 19:34 Last Admin: 02/11/20 06:06 Dose: 4 mg Documented by: Pantoprazole Sodium (Protonix) 40 mg PO QAM [facility] Stop: 03/12/20 08:59 Last Admin: 02/11/20 08:05 Dose: 40 mg Documented by: Sucralfate (Carafate) 1 gm PO QID [facility] Stop: 03/12/20 12:59 Last Admin: 02/11/20 13:40 Dose: 1 gm Documented by: Tramadol HCl (Ultram) 50 mg PO Q4H PRN PRN Reason: Moderate Pain Stop: 03/11/20 20:05 Last Admin: 02/11/20 06:06 Dose: 50 mg Documented by: (1) Abdominal pain Abdominal location: epigastric Qualified Code(s): R10.13 - Epigastric pain
[2020-02-11] MEDS: CIPROFLOXACIN 500 MG TAB PO SCH (20:07)
[2020-02-12] MEDS: ACETAMINOPHEN 500 MG TAB PO SCH (05:51)
[2020-02-12] MEDS: SUCRALFATE 1 GM/10 ML UDC PO SCH ×2 (09:04→12:39)
[2020-02-12] MEDS: ENOXAPARIN INJ 40 MG/0.4 ML SYR SQ SCH (09:04)
[2020-02-12] MEDS: CIPROFLOXACIN 500 MG TAB PO SCH (09:04)
[2020-02-12] MEDS: PANTOprazole 40 MG TAB PO SCH (09:04)
[2020-02-12] MEDS ORDERED: GLYCERIN ADULT 12 SUPP/BOX SUPP PR PRN (10:19)
[2020-02-12] MEDS ORDERED: POLYETHYLENE (MIRALAX) 17 GM PACK PO SCH (11:00)
--- NOTE | 2020-02-12 12:09 | Discharge Summary ---
Date of Service February 12, 2020 Admission HPI Per Admitting Provider 54-year-old female with a history of bowel ischemia and recurrent small bowel obstructions in the past presents with persistent abdominal pain. She reports her bowels changed approximately 1.5 weeks ago. She reports her last bowel movement was 5 days ago and she only recently started passing gas today. She was seen in the ER 2 nights ago because of this upper abdominal bilateral pain that was severe and radiating into her back bilaterally. She thought she had a kidney stone at that time and work-up actually revealed a small bowel obstruction. However because she could eat and she was feeling better from a p ain standpoint she was sent home. The notes state that she was given the option to stay however, the patient states that she was not. She reports having pain persistently despite trying to take Tylenol and she even tried to contact [facility] general surgery group. The pain persisted and she reported vomiting yesterday but was able to keep down some clear liquids this morning. She did have some nausea on arrival which is improved with Zofran. Pain is improved with Dilaudid but is still present. She does take naproxen as needed. Recent urine culture from that ER visit revealed positive E. coli UTI. She does report increased urinary incontinence and inability to hold her urine over the last few days. She denies any burning or other UTI symptoms. She denies any fevers or chills. She otherwise denies any chest pain, shortness of breath or other issues at this time Admission Exam Per Admitting Provider CONSTITUTIONAL: obese, vitals as above, generally well-appearing EYES: normal conjunctivae, no scleral icterus ENT: external ear and nose normal RESPIRATORY: clear to auscultation bilaterally, no crackles, rales or wheezes, normal respiratory effort CARDIOVASCULAR: regular rate and rhythm, S1 and 2 heard without murmurs, gallops or rubs, no JVD, no peripheral edema GASTROINTESTINAL: normal bowel sounds, soft, tender to palpation in LUQ, RUQ and epigastric area. Nondistended MUSCULOSKELETAL: strength 5/5 throughout, head is normocephalic and atraumatic SKIN: warm and dry, generalized dermatitis NEUROLOGIC: CN 2-12 grossly intact, no sensory deficit, normal cognition, normal speech, no gross focal deficits. PSYCHIATRIC: alert cooperative and oriented to person, place and time. Principal Diagnosis Abdominal pain possibly related to recent SBO E coli UTI h/o gastric bypass surgery Discharge Exam CONSTITUTIONAL: obese, vitals as above, generally well-appearing EYES: normal conjunctivae, no scleral icterus ENT: external ear and nose normal RESPIRATORY: clear to auscultation bilaterally, no crackles, rales or wheezes, normal respiratory effort CARDIOVASCULAR: regular rate and rhythm, S1 and 2 heard without murmurs, gallops or rubs, no JVD, no peripheral edema GASTROINTESTINAL: normal bowel sounds, soft, mild TTP in RUQ, LUQ, epigastric region which she reports is improved from yesterday. Nondistended MUSCULOSKELETAL: strength 5/5 throughout, head is normocephalic and atraumatic SKIN: warm and dry, generalized dermatitis NEUROLOGIC: CN 2-12 grossly intact, no sensory deficit, normal cognition, normal speech, no gross focal deficits. PSYCHIATRIC: alert cooperative and oriented to person, place and time. Discharge Data Allergies Allergy/AdvReac Type Severity Reaction Status Date / Time cephalexin Allergy Unknown RASH HIVES Unverified 02/10/20 15:32 TROUBLE BREATHING ITCHY Cephalosporins Allergy Unknown Rash,hives, Verified 02/10/20 15:32 trouble breathing and itchiness Consultations 02/10/20 17:43 ED Decision to Admit Stat 02/10/20 19:14 Consult Case Management - Discharge Planning Routine 02/10/20 19:22 Consult General Surgery Routine Ordered Studies 02/10/20 14:48 CT abd pelvis wo con Stat Hospital Course (1) Abdominal pain: (2) History of gastric bypass: (3) Vitamin D deficiency: (4) Multiple sclerosis: (5) E. coli UTI: 54-year-old gastric bypass patient presented with persistent abdominal pain after recent small bowel obstruction seen on CT scan in the ER 2 days prior. She had gone home in the ER as she was tolerating p.o. and had persistent pain that ended up worsening. She was admitted to the hospitalist service and placed on a trial of bowel rest. Lactate was negative at 0.7. She had no evidence of leukocytosis. Repeat CT scan revealed no acute infectious or inflammatory findings in the abdomen or pelvis with postoperative changes consistent with a Keon-en-Y gastric bypass surgery. No bowel obstruction was seen on imaging. Distention of the proximal bowel loops was improved from 02/08/2020. Colonic diverticulosis was seen without evidence of acute diverticulitis. Her diet was advanced without much issue. At time of discharge she still had very mild residual upper abdominal pain to palpation which she felt was improved overall. She was tolerating p.o. reliably and was passing gas. Exam at time of discharge revealed a soft mildly tender abdomen in the epigastric, RUQ, left UQ areas that was improved. Abdomen was nondistended and there was no guarding present. Physical exam was otherwise unremarkable. She was mentating and ambulating at baseline and tolerating p.o. She was hemodynamically stable and afebrile and oxygenating well on room air. She was discharged in stable condition with close primary care follow-up recommended. Additionally, of note, general surgery was consulted and recommended call [facility] out of concern for possible developing ulcer for which she has a history. She was given this at time of discharge and primary care physician can decide whether or not a referral to GI is appropriate. She was also treated with ciprofloxacin for an E. coli UTI with improvement of symptoms prior to discharge from the hospital. Total Time Total Time Spent Total Time Spent (In Minutes): 60 Total Time Includes: Examination of the Patient, Discharge Planning and Communication With Other Providers Discharge Plan Discharge Items Patient Disposition: Home - Self-Care Reason For Visit: ABDOMINAL PAIN,RECENT SBO Discharge Diagnosis: Abdominal pain possibly related to recent SBO E coli UTI h/o gastric bypass surgery Condition on Discharge: Good Activity: Resume your previous activity Non-emergency contact: Primary Care Provider Call non-emergency contact if: you have any medication questions and your symptoms worsen Follow-up/Referrals: Juventino Chun MD [Primary Care Provider] - Diet: Regular Addtl Attending Provider Instructions: Please take all medications as instructed on discharge list below. Please consider a wheat-free diet to help you lose weight. It is recommended that you follow-up with your primary care physician in one week to ensure you are stil doing well after discharge and your pain has completely resolved. It was a pleasure taking care of you! Please call if you have any questions or problems. You can reach a [facility] hospitalist on duty at [facility] 24 hours a day by calling [phone]. Take care of yourself. Paz Quigley, [facility] Center[facility] Pending Studies at Discharge: No Stand-Alone Forms: My [facility], Smoking Cessation Medications and DC Order Prescriptions: New sucralfate 100 mg/mL suspension 10 ml PO Q6H 28 Days Qty: 1120 RF: 0 ciprofloxacin HCl 500 mg Tablet 500 mg PO BID 3 Days Qty: 6 RF: 0 Continued dextroamphetamine-amphetamine 20 mg tablet 20 mg PO QAM PRN (Reason: Fatigue) RF: 0 ergocalciferol (vitamin D2) 1,250 mcg (50,000 unit) capsule 50,000 unit PO TUTH RF: 0 calcium citrate-vitamin D3 [Citracal Regular] 250 mg calcium- 200 unit Tablet 2 tab PO QAM RF: 0 pantoprazole [Protonix] 40 mg tablet,delayed release (DR/EC) 40 mg PO QAM RF: 0 Discontinued naproxen sodium [Aleve] 220 mg Tablet 220 mg PO Q12H PRN (Reason: Pain) RF: 0 Discharge Orders: Discharge Order (Routine); Ordered 02/12/20 Ordered By: Paz Shah/Other Patient Handouts: Sucralfate oral suspension Admission Data Admit Date/Time: 02/10/20 17:59 Attending Provider: Paz Quigley Admit Provider: Paz Quigley Primary Care Provider: Juventino Chun Other Providers: Paz Quigley ; Hayden Alberts Other Interventions: Discharge Summary Assessment (RN) Last Done: 02/12/20 12:29
== END 2020-02-12 13:11 | disposition home or self-care (01) | DRG 392 ==
LOC: ED 13:25 → 3E 17:59

== ENCOUNTER 2021-10-04 13:25 | Observation (INO) ==
[2021-10-04] MEDS ORDERED: SODIUM CHLORIDE 0.9% 1000ML 1,000 ML IV ONE (14:19)
[2021-10-04] MEDS ORDERED: FAMOTIDINE 20MG IV PUSH 20 MG/5 ML SYR IV STA (14:38)
[2021-10-04] MEDS ORDERED: ONDANSETRON INJ 2 MG/ML 2 ML VIAL IV STA (14:38)
--- NOTE | 2021-10-04 14:55 | Emergency Department Note ---
Impression & Plan Nausea & vomiting, Recurrent upper abdominal pain, Weakness ED Provider Note Provider: Domingo Bledsoe MD DATE OF SERVICE: 10/04/2021 CHIEF COMPLAINT: Abdominal pain, nausea vomiting, dehydration HISTORY OF PRESENT ILLNESS: Patient is a 56-year-old female past medical history including gastric bypass, bowel ischemia with recurrent small bowel obstructions, intra-abdominal abscess in the past, UTI, and MS presenting here today reporting approximately 2 weeks of nausea and vomiting somewhat worsened by food intake. Denies significant diarrhea but states she is not had a bowel movement in some time. Patient was of abdominal bloating and some mild upper abdominal tenderness. Patient has significant past surgical history including prior Appendectomy, section, and hysterectomy. Seen in the [facility] clinic today and referred here for further care. Patient states he feels very dehydrated and generally weak and at times a bit lightheaded peer denies significant chest pain or shortness of breath. Denies fever chills. Denies significant headache at this time. Denies significant myalgias. Patient states she is vaccinated for Covid. Patient tried some Pepto-Bismol but this has not seemed to help her symptoms. REVIEW OF SYSTEMS: A total of 10 review of systems was obtained and negative except as stated above in the HPI. PAST MEDICAL HISTORY: As noted above MEDICATIONS: Reviewed home medications SOCIAL HISTORY: Non-smoker, lives at home with PHYSICAL EXAM: GENERAL: alert and oriented in no acute distress on stretcher but fatigued in appearance Head: normocephalic and atraumatic EYES: No injection, discharge or icterus. NECK: Trachea midline. LUNGS: Airway patent. No retractions. Breath sounds clear HEART: Regular rate and rhythm. No chest wall tenderness ABDOMEN: Mildly distended with minimal epigastric tenderness. Prior healed surgical scars noted. SKIN: Acyanotic, warm, dry, without rashes EXTREMITIES: Without swelling, tenderness or deformity NEUROLOGICAL: No focal deficits. No aphasia. No facial droop or slurred speech. Ambulatory. EK bpm sinus bradycardia with sinus arrhythmia. No PVC or PAC. QTc 439. No acute ST segment elevation or depression appreciated. CONTINUOUS CARDIAC MONITORING: was ordered and showed a heart rate of high 50s to 80s bpm in normal sinus rhythm to sinus bradycardia Patient's laboratory studies and imaging reviewed. Differential includes gastrointestinal, SBO, infection, dehydration, metabolic abnormality, hypo/hyperglycemia, electrolyte disturbance, anemia, hypoxia, cardiac sources, intracerebral event, toxicologic, neurologic, as well as other pathologies. IMPRESSION/MEDICAL DECISION MAKING: Patient presents generalized weakness decreased intake with nausea and vomiting for two weeks and with significant intra-abdominal surgical history. Afebrile here and doubt sepsis. Patient not peritoneal. Basic blood work was ordered for some IV hydration and nausea medication. Patient initially declined any pain medication. CT scan of the abdomen pelvis to be completed to look for possible intra-abdominal pathology given her complaints and significant history. Blood work here likely returns without significant anemia or leukocytosis. No significant electrolyte abnormalities signs of renal dysfunction. No evidence of bilirubin elevation, transaminitis, or pancreatitis based on labs. Urinalysis not convincing for infection. Troponin is low and EKG without significant acute ischemic findings. Doubt this represents ACS or PE. Patient later complains a little bit of sharp pain in the left upper quadrant and states she gets this from time to time. Zofran has basically resolved her nausea she reports. Questionable but something for pain and small amount of morphine was ordered. CT report returns per radiology with no acute intra-abdominal or pelvic abnormality with evidence of previous gastric surgery. There is no concerning findings for obstruction per the radiologist. Discussed with the patient the findings. Her blood work and lab findings are reassuring. Discussed with the option of further observation here versus trial of care at home. Patient states that she feels just too weak and does not feel that she can eat and drink at this point. Did order a little bit of Reglan. Discussed with her risks of staying and other possible iatrogenic infections but she again states that she feels too uncomfortable to go home at this point and does not feel this is safe. Hospitalist team was consulted. DIAGNOSIS: Nausea and vomiting, recurrent upper abdominal pain, weakness DISPOSITION: Being evaluated by the hospitalist Past Med/Surg History Medical History Depression with anxiety NO LONGER ON MEDS Dermatitis DUE TO NERVE ISSUE Fatigue Goiter Iron deficiency anemia Kidney stone Migraine without aura, not intractable, without status migrainosus HX Multiple sclerosis Optic neuritis Osteoporosis Peptic ulcer disease HX Pulmonary nodule JUST MONITORING Restless leg syndrome Thyroid nodule JUST MONITORING Urinary incontinence Vitamin B12 deficiency Vitamin D deficiency Surgical History History of adenoidectomy History of appendectomy History of bilateral tubal ligation History of section X2 History of colonoscopy History of esophagogastroduodenoscopy (EGD) History of gastric bypass History of hysterectomy History of lithotripsy SEVERAL History of tonsillectomy History of tooth extraction Hx of abdominal surgery TO REPAIR MESH FROM HERNIA SURGERY> REPLACED MESH WITH "PIG SKIN COVERING" Hx of biopsy THYROID Hx of hernia repair SEVERAL Family History Mother Diabetes Social History Smoking Status: Never smoker Second Hand Exposure: Yes; Hx Alcohol Use: No Hx Substance Use: No Preferred Language: [place] Communication Ability: Effective Lead Sharepoint Developer Required: No Beliefs That Will Affect Care: None Current Living Situation: Spouse Feels Safe at Home: Yes Assistive Devices: Denture - Upper and Denture - Lower Allergies Allergies Allergy/AdvReac Type Severity Reaction Status Date / Time cephalexin Allergy Unknown RASH HIVES Verified 06/28/21 10:36 TROUBLE BREATHING ITCHY Cephalosporins Allergy Unknown Rash,hives, Verified 06/28/21 10:36 trouble breathing and itchiness Home Meds Home Medications Medication Instructions Recorded Confirmed pantoprazole 40 mg tablet,delayed 40 mg PO QAM 02/10/20 10/04/21 release (Protonix) acetaminophen 325 mg capsule 650 mg PO QID PRN 10/12/20 10/04/21 (Tylenol) ergocalciferol (vitamin D2) 1,250 50,000 unit PO 2XWK 04/10/21 10/04/21 mcg (50,000 unit) capsule lisinopril 5 mg tablet 5 mg PO BID 06/28/21 10/04/21 trazodone 50 mg tablet 50 mg PO HS 06/28/21 10/04/21 fluoxetine 20 mg capsule 20 mg PO DAILY 10/04/21 10/04/21 Previous Rx's Medication Instructions Recorded ropinirole 0.5 mg tablet 0.5 mg PO DAILY PRN #30 tab 06/28/21 Results & Data (ED) Vital Signs Vital Signs - 24 hr 10/04/21 13:33 10/04/21 15:30 10/04/21 16:00 Temperature 36.6 C Temperature Source Temporal Artery Scan Pulse Rate 81 60 68 Pulse Rate from SpO2 Sensor 59 L 70 Respiratory Rate 18 18 18 Respiratory Effort / Characteristics Non-Labored Spontaneous Respiratory Depth Normal Respiratory Pattern Regular Blood Pressure 152/98 H 114/79 137/88 Blood Pressure Mean 116 90 104 Blood Pressure Position Sitting Pulse Oximetry 96 95 96 Oxygen Delivery Method Room Air Sepsis Recent Fever Within 48 Hours No Sepsis New/Unexplained Change in Mental Status N/A Sepsis Action Taken by Nursing No Action Required 10/04/21 17:09 Temperature Temperature Source Pulse Rate Pulse Rate from SpO2 Sensor 73 Respiratory Rate 18 Respiratory Effort / Characteristics Respiratory Depth Respiratory Pattern Blood Pressure 127/77 Blood Pressure Mean 93 Blood Pressure Position Pulse Oximetry 98 Oxygen Delivery Method Room Air Sepsis Recent Fever Within 48 Hours Sepsis New/Unexplained Change in Mental Status Sepsis Action Taken by Nursing Laboratory Data Result diagrams: 10/04/21 14:57 10/04/21 14:57 Lab Results 10/04/21 10/04/21 10/04/21 Range/Units 14:57 14:57 14:57 WBC 7.95 (4.8-10.8) K/uL RBC 4.96 (4.2-5.4) M/uL Hgb 15.4 (12.0-16.0) g/dL Hct 45.4 (37-47) % MCV 91.5 (80-100) fL MCH 31.0 (25-34) pg MCHC 33.9 (32-36) g/dL RDW Std Deviation 52.7 H (36.4-46.3) fL RDW Coeff of Delphine 15.7 H (11.5-14.5) % Plt Count 299 (130-400) K/uL MPV 9.7 (7.4-10.4) fL Immature Gran % (Auto) 0.1 % Neut % (Auto) 58.4 % Lymph % (Auto) 31.7 % Glynn % (Auto) 8.3 % Eos % (Auto) 1.1 % Baso % (Auto) 0.4 % Neut # (Auto) 4.64 (1.4-6.5) K/uL Lymph # (Auto) 2.52 (1.2-3.4) K/uL Glynn # (Auto) 0.66 H (0.11-0.59) K/uL Eos # (Auto) 0.09 (0-0.5) K/uL Baso # (Auto) 0.03 (0-0.2) K/uL Immature Gran # (Auto) 0.01 (0.00-0.02) K/uL Sodium 135 L (136-145) mmol/L Potassium 4.5 (3.5-5.1) mmol/L Chloride 106 (98-107) mmol/L Carbon Dioxide 24 (21-32) mmol/L Anion Gap 5.0 (3-11) BUN 10 (7-18) mg/dl Creatinine 0.64 (0.6-1.2) mg/dl Est Cr Clr Drug Dosing 105.4 ml/min Est GFR ( Amer) 114.8 ml/min Est GFR (Non-Af Amer) 99.1 ml/min BUN/Creatinine Ratio 15.2 (10-20) Glucose 99 (70-99) mg/dl Calcium 9.7 (8.5-10.1) mg/dl Magnesium 2.2 Cancelled (1.8-2.4) mg/dl Total Bilirubin 0.5 (0.2-1) mg/dl AST 17 (15-37) U/L ALT 32 (12-78) U/L Alkaline Phosphatase 113 (45-117) U/L Troponin I < 0.015 Cancelled (0-0.045) ng/ml Total Protein 7.9 (6.4-8.2) gm/dl Albumin 3.9 (3.4-5.0) gm/dl Globulin 4.0 (2.5-4.0) gm/dl Albumin/Globulin Ratio 1.0 (0.9-2) Lipase 152 (73-393) U/L Urine Color Urine Appearance (Clear) Urine pH (4.5-7.5) Ur Specific [place] (1.000-1.030) Urine Protein (Negative) Urine Glucose (UA) (Negative) Urine Ketones (Negative) Urine Blood (Negative) Urine Nitrite (Negative) Urine Bilirubin (Negative) Urine Urobilinogen (Negative) Ur Leukocyte Esterase (Negative) Urine WBC (Auto) (0-5) /hpf Urine RBC (Auto) (0-4) /hpf U Hyaline Cast (Auto) (0-5) /lpf U Epithel Cells (Auto) (0-5) /lpf Urine Bacteria (Auto) (Negative) COVID-19 Eval Order SARS-CoV-2 (PCR) (Negative) 10/04/21 10/04/21 10/04/21 Range/Units 14:57 14:57 14:57 WBC (4.8-10.8) K/uL RBC (4.2-5.4) M/uL Hgb (12.0-16.0) g/dL Hct (37-47) % MCV (80-100) fL MCH (25-34) pg MCHC (32-36) g/dL RDW Std Deviation (36.4-46.3) fL RDW Coeff of Delphine (11.5-14.5) % Plt Count (130-400) K/uL MPV (7.4-10.4) fL Immature Gran % (Auto) % Neut % (Auto) % Lymph % (Auto) % Glynn % (Auto) % Eos % (Auto) % Baso % (Auto) % Neut # (Auto) (1.4-6.5) K/uL Lymph # (Auto) (1.2-3.4) K/uL Glynn # (Auto) (0.11-0.59) K/uL Eos # (Auto) (0-0.5) K/uL Baso # (Auto) (0-0.2) K/uL Immature Gran # (Auto) (0.00-0.02) K/uL Sodium (136-145) mmol/L Potassium (3.5-5.1) mmol/L Chloride (98-107) mmol/L Carbon Dioxide (21-32) mmol/L Anion Gap (3-11) BUN (7-18) mg/dl Creatinine (0.6-1.2) mg/dl Est Cr Clr Drug Dosing ml/min Est GFR ( Amer) ml/min Est GFR (Non-Af Amer) ml/min BUN/Creatinine Ratio (10-20) Glucose (70-99) mg/dl Calcium (8.5-10.1) mg/dl Magnesium (1.8-2.4) mg/dl Total Bilirubin (0.2-1) mg/dl AST (15-37) U/L ALT (12-78) U/L Alkaline Phosphatase (45-117) U/L Troponin I (0-0.045) ng/ml Total Protein (6.4-8.2) gm/dl Albumin (3.4-5.0) gm/dl Globulin (2.5-4.0) gm/dl Albumin/Globulin Ratio (0.9-2) Lipase (73-393) U/L Urine Color Yellow Urine Appearance Clear (Clear) Urine pH 6.5 (4.5-7.5) Ur Specific [place] 1.019 (1.000-1.030) Urine Protein Negative (Negative) Urine Glucose (UA) Negative (Negative) Urine Ketones Negative (Negative) Urine Blood Negative (Negative) Urine Nitrite Negative (Negative) Urine Bilirubin Negative (Negative) Urine Urobilinogen Negative (Negative) Ur Leukocyte Esterase Trace H (Negative) Urine WBC (Auto) 5-10 H (0-5) /hpf Urine RBC (Auto) 0-4 (0-4) /hpf U Hyaline Cast (Auto) 1-5 (0-5) /lpf U Epithel Cells (Auto) 20-30 H (0-5) /lpf Urine Bacteria (Auto) Negative (Negative) COVID-19 Eval Order Covid19 at [facility] SARS-CoV-2 (PCR) NEGATIVE (Negative) Administered Medications Discontinued Medications Sodium Chloride (Nss 1000ml) 1,000 mls @ 999 mls/hr IV .Q1H1M ONE Stop: 10/04/21 15:19 Last Admin: 10/04/21 15:12 Dose: 999 mls/hr Documented by: [id number] Famotidine (Pepcid 20mg Iv Push) 20 mg in 5 mls @ 2.5 mls/min IV NOW STA Stop: 10/04/21 14:39 Last Admin: 10/04/21 15:12 Dose: 2.5 mls/min Documented by: [id number] Ioversol (Optiray 320 100ml) 94 ml IV ONCE ONE Stop: 10/04/21 16:26 Last Admin: 10/04/21 16:25 Dose: 94 ml Documented by: [id number] Morphine Sulfate (Morphine Sulfate 4 Mg/Ml 1 Ml Carp\\Vial) 4 mg IV NOW STA Stop: 10/04/21 16:46 Last Admin: 10/04/21 17:09 Dose: 4 mg Documented by: [id number] Ondansetron HCl (Ondansetron Inj 2 Mg/Ml 2 Ml Vial) 4 mg IV NOW STA Stop: 10/04/21 14:39 Last Admin: 10/04/21 15:12 Dose: 4 mg Documented by: [id number] Imaging Data Radiologist's Impression: Abdomen/Pelvis CT 10/04/21 14:41 CT abd pelvis IV con only CLINICAL HISTORY: abdominal pain, nausea/vomiting, hx gastric bypass COMPARISON STUDY: 12/12/2019 CT DOSE: 1421.23 mGy.cm TECHNIQUE: Standard CT of the Abdomen and Pelvis was performed with IV contrast. A dose lowering technique was utilized adhering to the principles of ALARA. Contrast Volume: Optiray 320, 94 ml. The patient did not receive oral contrast. FINDINGS: Lung base: The lung bases are clear. Abdominal cavity: There is no evidence for abdominal mass, adenopathy or ascites. Liver: There is homogeneous attenuation of the liver parenchyma. There is no e vidence for enhancing mass lesion. Spleen: There is homogeneous attenuation of the splenic parenchyma. There is no enhancing mass lesion. Pancreas: There is homogeneous attenuation of the pancreatic parenchyma. There is no evidence for mass lesion or peripancreatic fluid collection. Gall Bladder: Surgical clips are present previous cholecystectomy. Adrenal glands: The adrenal glands are normal in size and attenuation. There is no evidence for enhancing mass lesion. Kidneys: There is homogeneous attenuation of the renal parenchyma bilaterally. There is no evidence for renal calculus or hydronephrosis. There is no evidence for enhancing mass. Bowel: There is again evidence of previous gastric bypass surgery. There is also evidence of partial small bowel resection with mild persistent focal dilatation of a segment of the jejunum at the site of previous surgery. The bowel loops are otherwise normally placed within the abdomen and pelvis without evidence for dilatation or obstruction. There is again evidence for extensive diverticulosis of the descending and sigmoid colon. There are no inflammatory changes present. There is no evidence for free air. There is no evidence for a dilated appendix. Bladder: The bladder is within normal limits with no evidence for focal mass, calculus or diverticulum. : There is no evidence for pelvic mass or adenopathy. There is no evidence for pelvic ascites. The patient is status post hysterectomy. Vasculature: There is no evidence for aneurysmal dilatation of the abdominal aorta. Osseous structures: There is no acute osseous pathology. Degenerative changes are seen in the lower lumbar spine. IMPRESSION: 1. No acute intra-abdominal or pelvic abnormality. 2. There is again evidence of previous gastric bypass surgery. 3. There is again diverticulosis with no CT evidence for diverticulitis. 4. Additional nonacute findings as delineated above. ACT 112: Negative or not required by law. Electronically signed by: Ronnie Carrero M.D. 10/04/2021 4:47 PM Discharge Plan Visit Data Chief Complaint: Abdominal Pain Stated Complaint: UPPER ABD PAIN,DEHYDRATION ED Provider: Domingo Bledsoe Discharge Problem: Nausea & vomiting, Recurrent upper abdominal pain, Weakness Patient Disposition: Being Evaluated by Hospitalist Forms Stand Alone Forms: [facility] Prescriptions Prescriptions: No Action lisinopril 5 mg tablet 5 mg PO BID RF: 0 trazodone 50 mg tablet 50 mg PO HS RF: 0 ropinirole 0.5 mg tablet 0.5 mg PO DAILY PRN (Reason: restless leg(s)) Qty: 30 RF: 5 acetaminophen [Tylenol] 325 mg Capsule 650 mg PO QID PRN (Reason: Pain) RF: 0 pantoprazole [Protonix] 40 mg tablet,delayed release (DR/EC) 40 mg PO QAM RF: 0 ergocalciferol (vitamin D2) 1,250 mcg (50,000 unit) capsule 50,000 unit PO 2XWK RF: 0 fluoxetine 20 mg capsule 20 mg PO DAILY RF: 0 Referrals Referrals: Tamia Nolasco MD [Primary Care Provider] - Discharge Problem: Nausea & vomiting Qualifiers: Vomiting type: unspecified Vomiting Intractability: non-intractable Qualified Code(s): R11.2 - Nausea with vomiting, unspecified
[2021-10-04 15:35] LABS: Basophils # (auto) 0.03 K/uL (0-0.2); Basophils % (auto) 0.4 %; Eosinophils # (auto) 0.09 K/uL (0-0.5); Eosinophils % (auto) 1.1 %; Hematocrit (blood only) 45.4 % (37-47); Hemoglobin 15.4 g/dL (12.0-16.0); Immature Granulocytes # (auto) 0.01 K/uL (0.00-0.02); Immature Granulocytes % (auto) 0.1 %; Lymphocytes # (auto) 2.52 K/uL (1.2-3.4); Lymphocytes % (auto) 31.7 %; Mean Corpuscular Hgb Conc 33.9 g/dL (32-36); Mean Corpuscular Volume 91.5 fL (80-100); Mean Platelet Volume 9.7 fL (7.4-10.4); Monocytes # (auto) 0.66 K/uL (0.11-0.59); Monocytes % (auto) 8.3 %; Neutrophils # (auto) 4.64 K/uL (1.4-6.5); Neutrophils % (auto) 58.4 %; Platelet Count 299 K/uL (130-400); RDW Coefficient of Variation 15.7 % (11.5-14.5); RDW Standard Deviation 52.7 fL (36.4-46.3); Red Blood Count 4.96 M/uL (4.2-5.4); White Blood Count 7.95 K/uL (4.8-10.8)
[2021-10-04 15:44] LABS: Alanine Aminotransferase 32 U/L (12-78); Albumin Level 3.9 gm/dl (3.4-5.0); Aspartate Aminotransferase 17 U/L (15-37); BUN Creatinine Ratio 15.2 (10-20); Blood Urea Nitrogen 10 mg/dl (7-18); Calcium 9.7 mg/dl (8.5-10.1); Carbon Dioxide 24 mmol/L (21-32); Chloride 106 mmol/L (98-107); Creatinine Clr Calc Pharmacy 105.4 ml/min; Est GFR (African American) 114.8 ml/min; Est GFR (Non-African American) 99.1 ml/min; Glucose 99 mg/dl (70-99); Lipase 152 U/L (73-393); Magnesium 2.2 mg/dl (1.8-2.4); Potassium 4.5 mmol/L (3.5-5.1); Sodium 135 mmol/L (136-145)
[2021-10-04 15:48] LABS: Appearance Urine Clear (Clear); Bacteria Urine Automated Negative (Negative); Bilirubin Urine Negative (Negative); Blood Urine Negative (Negative); Color Urine Yellow; Epithelial Cell Urine Auto 20-30 /lpf (0-5); Glucose Urine UA Negative (Negative); Ketones Urine Negative (Negative); Leukocyte Esterase Urine Trace (Negative); Nitrite Urine Negative (Negative); Protein Urine Negative (Negative); RBC Urine Automated 0-4 /hpf (0-4); Specific Gravity Urine 1.019 (1.000-1.030); Urobilinogen Urine Negative (Negative); pH Urine 6.5 (4.5-7.5)
[2021-10-04 15:49] LABS: Alkaline Phosphatase 113 U/L (45-117); Bilirubin,Total 0.5 mg/dl (0.2-1); Total Protein 7.9 gm/dl (6.4-8.2); Troponin I < 0.015 ng/ml (0-0.045)
[2021-10-04] MEDS ORDERED: OPTIRAY 320 100ml IV ONE (16:25)
[2021-10-04] MEDS ORDERED: MoRPHine SULFATE 4 MG/ML 1 ML CARP\\VIAL IV STA (16:45)
--- NOTE | 2021-10-04 16:49 | CT Scan Report ---
CT abd pelvis IV con only CLINICAL HISTORY: abdominal pain, nausea/vomiting, hx gastric bypass COMPARISON STUDY: 12/12/2019 CT DOSE: 1421.23 mGy.cm TECHNIQUE: Standard CT of the Abdomen and Pelvis was performed with IV contrast. A dose lowering rodolfo hnique was utilized adhering to the principles of ALARA. Contrast Volume: Optiray 320, 94 ml. The patient did not receive oral contrast. FINDINGS: Lung base: The lung bases are clear. Abdominal cavity: There is no evidence for abdominal mass, adenopathy or ascites. Liver: There is homogeneous attenuation of the liver parenchyma. There is no evidence for enhancing m ass lesion. Spleen: There is homogeneous attenuation of the splenic parenchyma. There is no enhancing mass lesion . Pancreas: There is homogeneous attenuation of the pancreatic parenchyma. There is no evidence for mas s lesion or peripancreatic fluid collection. Gall Bladder: Surgical clips are present previous cholecystectomy. Adrenal glands: The adrenal glands are normal in size and attenuation. There is no evidence for enhan cing mass lesion. Kidneys: There is homogeneous attenuation of the renal parenchyma bilaterally. There is no evidence f or renal calculus or hydronephrosis. There is no evidence for enhancing mass. Bowel: There is again evidence of previous gastric bypass surgery. There is also evidence of partial small bowel resection with mild persistent focal dilatation of a segment of the jejunum at the site o f previous surgery. The bowel loops are otherwise normally placed within the abdomen and pelvis witho ut evidence for dilatation or obstruction. There is again evidence for extensive diverticulosis of the descending and sigmoid colon. There are n o inflammatory changes present. There is no evidence for free air. There is no evidence for a dilated appendix. Bladder: The bladder is within normal limits with no evidence for focal mass, calculus or diverticulu m. : There is no evidence for pelvic mass or adenopathy. There is no evidence for pelvic ascites. The patient is status post hysterectomy. Vasculature: There is no evidence for aneurysmal dilatation of the abdominal aorta. Osseous structures: There is no acute osseous pathology. Degenerative changes are seen in the lower l umbar spine. IMPRESSION: 1. No acute intra-abdominal or pelvic abnormality. 2. There is again evidence of previous gastric bypass surgery. 3. There is again diverticulosis with no CT evidence for diverticulitis. 4. Additional nonacute findings as delineated above. ACT 112: Negative or not required by law. Electronically signed by: Ronnie Carrero M.D. 10/04/2021 4:47 PM
[2021-10-04] MEDS ORDERED: METOCLOPRAMIDE HCL INJ 5 MG/ML 2 ML VIAL IV ONE (17:07)
[2021-10-04] MEDS ORDERED: LACTATED RINGER'S 1,000 ML IV SCH (17:30)
--- NOTE | 2021-10-04 17:45 | History & Physical Report ---
Date of Service October 04, 2021 Assessment & Plan (1) Nausea & vomiting: (2) Recurrent upper abdominal pain: Plan: - Admit to med surg for obs - Continue IVFs, antiemetics - no leukocytosis, afebrile - CT abd/pelvis is nonrevealing for acute causes of abdominal pain, no obstruction or dilation. Pt with hx of SBO but this is not the cause currently - Continue home medications of protonix - Allow clear liquid diet and advance as tolerated - COVID-19 negative on admission - Bowel regimen ordered (3) History of gastric bypass: Plan: - hx of such, chronic (4) Multiple sclerosis: Plan: - chronic since age 16, stable, no acute flares (5) Obesity, morbid, BMI 40.0-49.9: Plan: - Allow clears, continue to encourage weight loss. Encourage exercise, suggested yoga at bedside for mental health and exercise. (6) Aortic ectasia: Plan: - noted, stable (7) Hypertension: Plan: - Continue lisionpril 5 mg BID, bp is well controlled here DVT ppx: teds, ambulatory CODE: Full Dispo: From home, likely to remain in the hospital overnight and discharge tomorrow. Observation. History of Present Illness Primary Care Provider: Tamia Nolasco MD This is a 56-year-old female with PMHx of multiple sclerosis, restless leg syndrome, hx of SBO, hx of gastric bypass and incarcerated hernia, who presents with acute onset of abdominal pain, nausea intermittent vomiting x 2-weeks. She feels generalized malaise, fatigue and is intermittently tearful during my exam. Pt notes worsening appetite, loss of 10 lbs recently, and feelings like she cannot have a bowel movement with bloating. Last BM was about 5-6 days ago, hard, small, no blood seen in stool. Her diet changed recently as she was attempting to reduce sodium for aortic ectasia. She denies any significant circumstantial changes at home, and is looking forward to going on a cruise with her in December. Pt denies any mood swings, but "at times I feel afraid to go to sleep". She tells me she feels safe at home. Pt denies any recent medication changes. Here in the ER she does not have any concerning findings on imaging for dilation or obstruction. She does have diverticulosis but no inflammatory changes were noted. Pt lab work is essentially normal. Allergies Allergy/AdvReac Type Severity Reaction Status Date / Time cephalexin Allergy Unknown RASH HIVES Verified 06/28/21 10:36 TROUBLE BREATHING ITCHY Cephalosporins Allergy Unknown Rash,hives, Verified 06/28/21 10:36 trouble breathing and itchiness Home Medications Medication Instructions Recorded Confirmed Type pantoprazole 40 mg tablet,delayed 40 mg PO QAM 02/10/20 10/04/21 History release (Protonix) acetaminophen 325 mg capsule 650 mg PO QID PRN 10/12/20 10/04/21 History (Tylenol) ergocalciferol (vitamin D2) 1,250 50,000 unit PO 2XWK 04/10/21 10/04/21 History mcg (50,000 unit) capsule ropinirole 0.5 mg tablet 0.5 mg PO DAILY PRN #30 tab 06/28/21 10/04/21 Rx trazodone 50 mg tablet 50 mg PO HS 06/28/21 10/04/21 History fluoxetine 20 mg capsule 20 mg PO DAILY 10/04/21 10/04/21 History lisinopril 5 mg tablet 5 mg PO DAILY #0 tab 10/06/21 10/04/21 Rx Past Med/Surg History Medical History Depression with anxiety NO LONGER ON MEDS Dermatitis DUE TO NERVE ISSUE Fatigue Goiter Iron deficiency anemia Kidney stone Migraine without aura, not intractable, without status migrainosus HX Multiple sclerosis Optic neuritis Osteoporosis Peptic ulcer disease HX Pulmonary nodule JUST MONITORING Restless leg syndrome Thyroid nodule JUST MONITORING Urinary incontinence Vitamin B12 deficiency Vitamin D deficiency Surgical History History of adenoidectomy History of appendectomy History of bilateral tubal ligation History of section X2 History of colonoscopy History of esophagogastroduodenoscopy (EGD) History of gastric bypass History of hysterectomy History of lithotripsy SEVERAL History of tonsillectomy History of tooth extraction Hx of abdominal surgery TO REPAIR MESH FROM HERNIA SURGERY> REPLACED MESH WITH "PIG SKIN COVERING" Hx of biopsy THYROID Hx of hernia repair SEVERAL Family History Mother Diabetes Social History Smoking Status: Former smoker Cigarettes Per Day: 10; Second Hand Exposure: No; Hx Alcohol Use: Yes Alcohol type: beer Hx Substance Use: No Preferred Language: Croatian Communication Ability: Effective Investment Banker Required: No Beliefs That Will Affect Care: None Current Living Situation: Spouse Feels Safe at Home: Yes Assistive Devices: None Review of Systems Review of Systems: Constitutional: No fever, sweats or chills Eyes: No diplopia, no worsening or blurred vision ENT: normal hearing, no trouble swallowing Respiratory: No cough, sputum, dyspnea at rest or on exertion Cardiovascular: No chest pain, tightness or palpitations Abdomen: As per HPI. + Pain, nausea, and constipation. no vomiting. Musculoskeletal: No joint pain, calf pain, swelling Neurologic: No weakness, numbness/tingling, or balance problems Psychiatric: No anxiety or depression Skin: No rash or itch Physical Exam Physical Exam: General: awake, alert, no apparent distress, + obese with BMI 39.1 Head: Normocephalic, atraumatic ENT: PERRL, EOMI, no pharyngeal exudate, mucous membranes moist Chest: Clear to auscultation, on room air, no adventitious breath sounds Cardiac: Regular rate and rhythm, no murmur, no JVD, normal peripheral pulses, good capillary refill Abdominal: NABS x 4 quadrants, soft, minimally distended, + epigastric tender to palpation, no rebound or guarding Extremities: Normal inspection, no peripheral edema or erythema, calfs nontender to palpation Psych: Anxious mood and labile affect Neuro: AAO x 3, strength intact bilaterally and rated 5/5, no motor deficits, speech is clear, no peripheral sensory deficits, gait observed at bedside and is stable, walks independently Results & Data Results & Data ([facility]) Vital Signs (Past 12 Hours) Vital Signs Temp Pulse Resp BP Pulse Ox 10/04/21 17:09 18 127/77 98 10/04/21 16:00 68 18 137/88 96 10/04/21 15:30 60 18 114/79 95 10/04/21 13:33 36.6 C 81 18 152/98 H 96 Diagnostic Findings Abdomen/Pelvis CT 10/04/21 14:41 CT abd pelvis IV con only CLINICAL HISTORY: abdominal pain, nausea/vomiting, hx gastric bypass COMPARISON STUDY: 12/12/2019 CT DOSE: 1421.23 mGy.cm TECHNIQUE: Standard CT of the Abdomen and Pelvis was performed with IV contrast. A dose lowering technique was utilized adhering to the principles of ALARA. Contrast Volume: Optiray 320, 94 ml. The patient did not receive oral contrast. FINDINGS: Lung base: The lung bases are clear. Abdominal cavity: There is no evidence for abdominal mass, adenopathy or ascites. Liver: There is homogeneous attenuation of the liver parenchyma. There is no evidence for enhancing mass lesion. Spleen: There is homogeneous attenuation of the splenic parenchyma. There is no enhancing mass lesion. Pancreas: There is homogeneous attenuation of the pancreatic parenchyma. There is no evidence for mass lesion or peripancreatic fluid collection. Gall Bladder: Surgical clips are present previous cholecystectomy. Adrenal glands: The adrenal glands are normal in size and attenuation. There is no evidence for enhancing mass lesion. Kidneys: There is homogeneous attenuation of the renal parenchyma bilaterally. There is no evidence for renal calculus or hydronephrosis. There is no evidence for enhancing mass. Bowel: There is again evidence of previous gastric bypass surgery. There is also evidence of partial small bowel resection with mild persistent focal dilatation of a segment of the jejunum at the site of previous surgery. The bowel loops are otherwise normally placed within the abdomen and pelvis without evidence for dilatation or obstruction. There is again evidence for extensive diverticulosis of the descending and sigmoid colon. There are no inflammatory changes present. There is no evidence for free air. There is no evidence for a dilated appendix. Bladder: The bladder is within normal limits with no evidence for focal mass, calculus or diverticulum. : There is no evidence for pelvic mass or adenopathy. There is no evidence for pelvic ascites. The patient is status post hysterectomy. Vasculature: There is no evidence for aneurysmal dilatation of the abdominal aorta. Osseous structures: There is no acute osseous pathology. Degenerative changes are seen in the lower lumbar spine. IMPRESSION: 1. No acute intra-abdominal or pelvic abnormality. 2. There is again evidence of previous gastric bypass surgery. 3. There is again diverticulosis with no CT evidence for diverticulitis. 4. Additional nonacute findings as delineated above. ACT 112: Negative or not required by law. Electronically signed by: Ronnie Carrero M.D. 10/04/2021 4:47 PM Code Status & VTE Plan Code Status Full code Supervising Physician Co-Signing Physician Notes Pt was seen and examined. Agreed with Paz THOMPSON exam, assessment and plan. 56-year-old female with PMHx of multiple sclerosis, restless leg syndrome, hx of SBO, hx of gastric bypass and incarcerated hernia, who presents with acute onset of abdominal pain, nausea intermittent vomiting x 2-weeks. Pt said that she feels malaise and weak. She said that she had a poor appetite and lost about 10 lbs recently. She said that her last BM was about 5-6 days ago, hard, small, no blood seen in stool. CT abd/pelvis done in the ER showed no acute intra-abdominal or pelvic abnormality. diverticulosis with no CT evidence for diverticulitis. Will start on clear liquid diet, bowel regimen. Continue home PPI. Continue monitor closely. MD hCu (1) Nausea & vomiting Vomiting Intractability: non-intractable Vomiting type: unspecified Qualified Code(s): R11.2 - Nausea with vomiting, unspecified
[2021-10-04] MEDS ORDERED: MAGNESIUM HYDROXIDE SUSP 30 ML UDC PO ONE (18:23)
[2021-10-04] MEDS: SODIUM CHLORIDE 0.9% 1000ML 1,000 ML IV SCH (19:54)
[2021-10-04] MEDS: bisacodyL 5 MG TABEC PO SCH (19:54)
[2021-10-04] MEDS: POLYETHYLENE (MIRALAX) 17 GM PACK PO SCH (19:54)
[2021-10-04] MEDS ORDERED: traZODone HCL 50 MG TAB PO PRN (20:20)
[2021-10-04] MEDS: lisinopril 5 MG TAB PO SCH (21:29)
[2021-10-05] MEDS: ACETAMINOPHEN 325 MG TAB PO PRN ×3 (02:50→20:47)
[2021-10-05] MEDS: SODIUM CHLORIDE 0.9% 1000ML 1,000 ML IV SCH ×2 (06:23→19:41)
--- NOTE | 2021-10-05 07:47 | Electrocardiogram Report ---
Test Reason : Blood Pressure : / mmHG Vent. Rate : 059 BPM Atrial Rate : 059 BPM P-R Int : 132 ms QRS Dur : 092 ms QT Int : 444 ms P-R-T Axes : 028 048 048 degrees QTc Int : 439 ms Sinus bradycardia with marked sinus arrhythmia Otherwise normal ECG When compared with ECG of 10-APR-2021 22:47, No significant change was found Confirmed by Charlie Fam ([id number]) on 10/05/2021 7:47:16 AM Referred By: Erika Alanis Confirmed By:Charlie Fam
[2021-10-05 08:19] LABS: Hematocrit (blood only) 42.1 % (37-47); Hemoglobin 13.8 g/dL (12.0-16.0); Mean Corpuscular Hemoglobin 30.6 pg (25-34); Mean Corpuscular Hgb Conc 32.8 g/dL (32-36); Mean Corpuscular Volume 93.3 fL (80-100); Mean Platelet Volume 9.6 fL (7.4-10.4); Platelet Count 241 K/uL (130-400); RDW Coefficient of Variation 15.9 % (11.5-14.5); RDW Standard Deviation 54.7 fL (36.4-46.3); Red Blood Count 4.51 M/uL (4.2-5.4); White Blood Count 7.45 K/uL (4.8-10.8)
[2021-10-05] MEDS: bisacodyL 5 MG TABEC PO SCH (08:25)
[2021-10-05] MEDS: POLYETHYLENE (MIRALAX) 17 GM PACK PO SCH (08:25)
[2021-10-05] MEDS: lisinopril 5 MG TAB PO SCH ×2 (08:25→20:49)
[2021-10-05 09:20] LABS: Albumin Level 3.1 gm/dl (3.4-5.0); BUN Creatinine Ratio 13.7 (10-20); Calcium 8.8 mg/dl (8.5-10.1); Creatinine Clr Calc Pharmacy 106.9 ml/min; Est GFR (African American) 115.4 ml/min; Est GFR (Non-African American) 99.6 ml/min; Potassium 4.1 mmol/L (3.5-5.1)
[2021-10-05 09:53] LABS: Bilirubin,Total 0.6 mg/dl (0.2-1); Globulin 3.2 gm/dl (2.5-4.0); Total Protein 6.3 gm/dl (6.4-8.2)
[2021-10-05] MEDS: ONDANSETRON INJ 2 MG/ML 2 ML VIAL IV PRN ×2 (12:59→20:48)
[2021-10-05] MEDS ORDERED: PANTOprazole 40 MG TAB PO ONE (17:15)
[2021-10-05] MEDS: PANTOprazole 40 MG TAB PO SCH (17:30)
--- NOTE | 2021-10-05 17:37 | Hospitalist Progress Note ---
Date of Service October 05, 2021 Assessment & Plan (1) Nausea & vomiting: (2) Recurrent upper abdominal pain: Plan: CT abd/pelvis is nonrevealing for acute causes of abdominal pain, no obstruction or dilation Abdominal pain initially better today on clears but developed cramping pain and watery diarrhea after eating regular food at lunch Endorsing small amounts of black tarry material in stool as an outpatient last week- none in past 4 days, hgb stable at 13.8 Also complaining of burning pain after eating - h/o gastric ulcer in the past Continue protonix, diet as tolerated, routine GI consult (3) History of gastric bypass: Plan: Hx of such, chronic (4) Multiple sclerosis: Plan: Chronic since age 16, stable, no acute flares (5) Obesity, morbid, BMI 40.0-49.9: Plan: Encouraged exercise, suggested yoga at bedside for mental health and exercise on admission (6) Aortic ectasia: Plan: Noted, stable (7) Hypertension: Plan: Held lisionpril 5 mg BID due to lower BP. Currently 102/67 DVT ppx: SQ lovenox - monitor closely for blood in stool CODE: Full Dispo: Admitted to med/surg Admission and Anticipated Discharge Date Admission Date: October 04, 2021 Supervising Physician Co-Signing Physician Notes Patient reports she is doing okay and her pain is improved. However her nausea still persists. Denies any chest pain or shortness of breath. CT abdomen/pelvis was reviewed without any acute issues. Doing conservative management. Gastroenterology evaluation is pending. I performed a history and physical examination of the patient on 10/05/21, incl uding specifically H&P. I have discussed the patient's management with the advanced practitioner. Please refer to the Alayna Lima note for the documented findings and plan of care. Subjective Patient seen and examined. Abdominal pain initially felt better this morning so diet was advanced at lunchtime, but patient had abdominal cramping and liquid bowel movements. Endorses some nausea. Denies any fever or chills. No headache, lightheadedness, chest pain, shortness of breath, vomiting, dysuria or constipation. Review of Systems Review of Systems: At least ten systems reviewed and negative except as noted in the HPI. Physical Exam Physical Exam: Gen: WD/WN, NAD, sitting in bed, A&Ox3, anxious HEENT: Normocephalic, atraumatic, conjunctivae moist, sclerae anicteric, mucous membranes moist Lung: Clear to Auscultation bilaterally, no wheezes/rales/rhonchi Heart: Regular rate, regular rhythm, no murmurs, rubs, or gallops Abdomen: Soft, NT, ND +BS x 4 Extremities: no edema Skin: Warm, no rash Results & Data Results & Data ([facility]) Vital Signs (Past 12 Hours) Vital Signs Temp Pulse Resp BP Pulse Ox 10/05/21 16:41 36.6 C 65 18 102/67 95 10/05/21 08:09 36.9 C 78 18 114/79 94 Laboratory Results Short CBC 10/05/21 Range/Units 07:57 WBC 7.45 (4.8-10.8) K/uL Hgb 13.8 (12.0-16.0) g/dL Hct 42.1 (37-47) % Plt Count 241 (130-400) K/uL BMP 10/05/21 07:57 Sodium 141 Potassium 4.1 Chloride 110 H Carbon Dioxide 24 BUN 9 Creatinine 0.63 Glucose 95 Calcium 8.8 Liver Function 10/05/21 Range/Units 07:57 Total Bilirubin 0.6 (0.2-1) mg/dl AST 11 L (15-37) U/L ALT 25 (12-78) U/L Alkaline Phosphatase 93 (45-117) U/L Albumin 3.1 L (3.4-5.0) gm/dl Diagnostic Findings Abdomen/Pelvis CT 10/04/21 14:41 CT abd pelvis IV con only CLINICAL HISTORY: abdominal pain, nausea/vomiting, hx gastric bypass COMPARISON STUDY: 12/12/2019 CT DOSE: 1421.23 mGy.cm TECHNIQUE: Standard CT of the Abdomen and Pelvis was performed with IV contrast. A dose lowering technique was utilized adhering to the principles of ALARA. Contrast Volume: Optiray 320, 94 ml. The patient did not receive oral contrast. FINDINGS: Lung base: The lung bases are clear. Abdominal cavity: There is no evidence for abdominal mass, adenopathy or ascites. Liver: There is homogeneous attenuation of the liver parenchyma. There is no evidence for enhancing mass lesion. Spleen: There is homogeneous attenuation of the splenic parenchyma. There is no enhancing mass lesion. Pancreas: There is homogeneous attenuation of the pancreatic parenchyma. There is no evidence for mass lesion or peripancreatic fluid collection. Gall Bladder: Surgical clips are present previous cholecystectomy. Adrenal glands: The adrenal glands are normal in size and attenuation. There is no evidence for enhancing mass lesion. Kidneys: There is homogeneous attenuation of the renal parenchyma bilaterally. There is no evidence for renal calculus or hydronephrosis. There is no evidence for enhancing mass. Bowel: There is again evidence of previous gastric bypass surgery. There is also evidence of partial small bowel resection with mild persistent focal dilatation of a segment of the jejunum at the site of previous surgery. The bowel loops are otherwise normally placed within the abdomen and pelvis without evidence for dilatation or obstruction. There is again evidence for extensive diverticulosis of the descending and sigmoid colon. There are no inflammatory changes present. There is no evidence for free air. There is no evidence for a dilated appendix. Bladder: The bladder is within normal limits with no evidence for focal mass, calculus or diverticulum. : There is no evidence for pelvic mass or adenopathy. There is no evidence for pelvic ascites. The patient is status post hysterectomy. Vasculature: There is no evidence for aneurysmal dilatation of the abdominal aorta. Osseous structures: There is no acute osseous pathology. Degenerative changes are seen in the lower lumbar spine. IMPRESSION: 1. No acute intra-abdominal or pelvic abnormality. 2. There is again evidence of previous gastric bypass surgery. 3. There is again diverticulosis with no CT evidence for diverticulitis. 4. Additional nonacute findings as delineated above. ACT 112: Negative or not required by law. Electronically signed by: Ronnie Carrero M.D. 10/04/2021 4:47 PM (1) Nausea & vomiting Vomiting Intractability: non-intractable Vomiting type: unspecified Qualified Code(s): R11.2 - Nausea with vomiting, unspecified
[2021-10-05] MEDS: FLUoxetine HCL 20 MG CAP PO SCH (18:19)
[2021-10-05] MEDS ORDERED: MoRPHine SULFATE 4 MG/ML 1 ML CARP\\VIAL IV PRN (22:08)
--- NOTE | 2021-10-05 22:14 | Communication Note ---
Date of Service: October 05, 2021 1010 PM RN communicated patient complaints of "rapid pulse spells" Intermittent weekly episodes at home since last summer as per patient. Not related to exertion. Patient without CP, S OB complaints. Pulse rate noted to transiently at 214 later down to 70 as per RN around 840 p.m. Possible A. fib episode during ER visit last March 2021 as per patient. Chest x-ray : EKG as per my interpretation : Rate 65, NSR, no ischemia AP Transient tachyarrhythmia PCU transfer 1140 PM While waiting for PCU transfer, patient complained of 8/10 chest tightness relieved by nitroglycerin as per RN No shortness of breath as per patient. Transient episodes at home as per patient. PPE Obese, slightly anxious Decreased breath sounds, no chest wall tenderness RRR, no murmurs Rectal exam (done due to dark stool complaints as per AM provider notes) : Intact sphincter, yellow stool, FOBT negative Chest x-ray as per my interpretation: Elevated right hemidiaphragm, cardiomegaly EKG as per my interpretation unchanged from prior EKG First troponin within normal limits AP Chest pain relieved by nitroglycerin Rule out ACS hx PVD Aspirin for CAD prevention Follow troponin TTE, Cardiology consult Will relay to AM provider.
[2021-10-05] MEDS ORDERED: LORazepam 0.5 MG/1 ML VIAL IV PRN (22:18)
[2021-10-05 23:21] LABS: Magnesium 2.4 mg/dl (1.8-2.4); Thyroid Stimulating Hormone 1.39 uIu/ml (0.300-4.500)
[2021-10-05] MEDS ORDERED: NITROGLYCERIN SL 0.4 MG/TAB TAB SL PRN (23:41)
[2021-10-06 00:30] LABS: Basophils # (auto) 0.03 K/uL (0-0.2); Basophils % (auto) 0.5 %; Eosinophils # (auto) 0.15 K/uL (0-0.5); Eosinophils % (auto) 2.3 %; Hematocrit (blood only) 39.9 % (37-47); Hemoglobin 12.7 g/dL (12.0-16.0); Immature Granulocytes # (auto) 0.01 K/uL (0.00-0.02); Immature Granulocytes % (auto) 0.2 %; Lymphocytes # (auto) 2.47 K/uL (1.2-3.4); Lymphocytes % (auto) 38.5 %; Mean Corpuscular Hemoglobin 30.3 pg (25-34); Mean Corpuscular Hgb Conc 31.8 g/dL (32-36); Mean Corpuscular Volume 95.2 fL (80-100); Mean Platelet Volume 9.4 fL (7.4-10.4); Monocytes # (auto) 0.49 K/uL (0.11-0.59); Monocytes % (auto) 7.6 %; Neutrophils # (auto) 3.27 K/uL (1.4-6.5); Neutrophils % (auto) 50.9 %; Platelet Count 224 K/uL (130-400); RDW Coefficient of Variation 15.4 % (11.5-14.5); RDW Standard Deviation 54.1 fL (36.4-46.3); Red Blood Count 4.19 M/uL (4.2-5.4); White Blood Count 6.42 K/uL (4.8-10.8)
[2021-10-06 00:43] LABS: D Dimer < 190 ug/L FEU (0-500); Partial Thromboplastin Ratio 1.2; Partial Thromboplastin Time 32.8 Seconds (21.0-31.0)
[2021-10-06] MEDS ORDERED: ASPIRIN 81 MG ECTAB PO SCH (02:00)
[2021-10-06] MEDS: traMADol HCL 50 MG TABLET PO PRN ×3 (03:39→14:13)
[2021-10-06 05:36] LABS: Hematocrit (blood only) 39.7 % (37-47); Hemoglobin 12.6 g/dL (12.0-16.0); Mean Corpuscular Hemoglobin 30.2 pg (25-34); Mean Corpuscular Hgb Conc 31.7 g/dL (32-36); Mean Corpuscular Volume 95.2 fL (80-100); Mean Platelet Volume 9.7 fL (7.4-10.4); Platelet Count 232 K/uL (130-400); RDW Coefficient of Variation 15.5 % (11.5-14.5); RDW Standard Deviation 54.6 fL (36.4-46.3); Red Blood Count 4.17 M/uL (4.2-5.4); White Blood Count 5.89 K/uL (4.8-10.8)
[2021-10-06 06:02] LABS: Alanine Aminotransferase 23 U/L (12-78); Aspartate Aminotransferase 12 U/L (15-37); BUN Creatinine Ratio 12.6 (10-20); Blood Urea Nitrogen 8 mg/dl (7-18); Calcium 8.4 mg/dl (8.5-10.1); Carbon Dioxide 26 mmol/L (21-32); Chloride 109 mmol/L (98-107); Creatinine Clr Calc Pharmacy 100.5 ml/min; Est GFR (African American) 113.1 ml/min; Est GFR (Non-African American) 97.6 ml/min; Glucose 85 mg/dl (70-99); Potassium 4.1 mmol/L (3.5-5.1); Sodium 138 mmol/L (136-145)
[2021-10-06 06:07] LABS: Albumin Globulin Ratio 0.9 (0.9-2); Alkaline Phosphatase 89 U/L (45-117); Bilirubin,Total 0.4 mg/dl (0.2-1); Chol HDL Ratio 5; Cholesterol 159 mg/dl (0-200); Globulin 3.3 gm/dl (2.5-4.0); HDL Cholesterol 35 mg/dl; LDL Cholesterol Calculated 99 mg/dl; Total Protein 6.3 gm/dl (6.4-8.2); Triglycerides 124 mg/dl (0-150); Troponin I < 0.015 ng/ml (0-0.045); VLDL Cholesterol 25 mg/dl
[2021-10-06 06:19] LABS: Partial Thromboplastin Ratio 1.2; Partial Thromboplastin Time 32.6 Seconds (21.0-31.0)
[2021-10-06] MEDS: FLUoxetine HCL 20 MG CAP PO SCH (08:19)
[2021-10-06] MEDS: PANTOprazole 40 MG TAB PO SCH (08:20)
[2021-10-06] MEDS: POLYETHYLENE (MIRALAX) 17 GM PACK PO SCH (08:20)
--- NOTE | 2021-10-06 08:31 | XRay Report ---
XR chest 1V portable HISTORY: 56 years-old Female tachy acute tachycardia COMPARISON: Chest radiograph and CTA chest 04/10/2021 TECHNIQUE: Portable AP view of the chest FINDINGS: Cardiac silhouette is mildly enlarged. Mild right hemidiaphragmatic elevation. Mild chronic interstit ial coarsening. No pneumothorax, pleural effusion, airspace consolidation or overt pulmonary edema. S urgical anchor of the left humeral head. Degenerative changes of the shoulders and spine. IMPRESSION: No acute process. ACT 112: Negative or not required by law. The above report was generated using voice recognition software. It may contain grammatical, syntax o r spelling errors. Electronically signed by: Joe Ly M.D. 10/06/2021 8:30 AM
[2021-10-06] MEDS ORDERED: lisinopril 5 MG TAB PO SCH (09:00)
[2021-10-06] MEDS ORDERED: ENOXAPARIN INJ 40 MG/0.4 ML SYR SQ SCH (09:00)
--- NOTE | 2021-10-06 10:07 | Cardiology Consultation ---
Date of Consultation October 06, 2021 Assessment & Plan (1) Intermittent palpitations: (2) Tachycardia: (3) Atypical chest pain: 56-year-old female reporting intermittent palpitations. Episode of tachycardia reported by staff last evening. No documented dysrhythmias. Telemetry unremarkable thus far with normal ECG x2. Patient underwent exercise treadmill testing approximately 6 months ago without evidence of inducible ischemia. Her TSH is within normal limits. Recommend continue telemetry monitoring. Repeat ECG with any palpitations or chest discomfort. Repeat resting 2D transthoracic echocardiogram. If inpatient telemetry monitoring is unrevealing, recommend outpatient 14-day ZIO monitor for further evaluation. Thank you for allow me to participate in the care of your patient. History of Present Illness Reason for Consultation: Elevated heart rate Requesting Physician: Dr. Bowden Attending Physician: Paz Quigley, History of Present Illness 56-year-old female admitted secondary to abdominal discomfort and concerns regarding small bowel obstruction. Carries history of gastric bypass surgery. Last evening staff reported elevated heart rate, above 200 bpm. No ECG or rhythm strips are available. Patient was not on telemetry at the time. She was transferred to telemetry for further observation. Cardiac enzymes are negative. Telemetry demonstrates sinus rhythm and sinus bradycardia overnight. ECG within normal limits. Patient describes episodes of palpitations, chest tightness and weakness occurring once every 1-2 weeks. Symptoms typically occur at rest. Feels as if her heart is "fluttering". Symptoms often relieved when she takes a deep breath. Symptoms last less than 5 minutes. No associated lightheadedness, dizziness, syncope, or near syncope. Denies associated shortness of breath. Reports chronic dyspnea on exertion with activity and daily chores. Admits to lack of regular exercise. Denies exertional chest pain or unusual shortness of breath. No orthopnea, PND, or lower extremity edema. Denies personal history of coronary disease, congestive heart failure, rheumatic fever as a child, or diabetes. Voices concern regarding family history heart disease. Mother in her 50s. Currently, patient resting comfortably. Denies any cardiovascular concerns/complaints at this time. Allergies Allergy/AdvReac Type Severity Reaction Status Date / Time cephalexin Allergy Unknown RASH HIVES Verified 06/28/21 10:36 TROUBLE BREATHING ITCHY Cephalosporins Allergy Unknown Rash,hives, Verified 06/28/21 10:36 trouble breathing and itchiness Home Medications Medication Instructions Recorded Confirmed Type pantoprazole 40 mg tablet,delayed 40 mg PO QAM 02/10/20 10/04/21 History release (Protonix) acetaminophen 325 mg capsule 650 mg PO QID PRN 10/12/20 10/04/21 History (Tylenol) ergocalciferol (vitamin D2) 1,250 50,000 unit PO 2XWK 04/10/21 10/04/21 History mcg (50,000 unit) capsule lisinopril 5 mg tablet 5 mg PO BID 06/28/21 10/04/21 History ropinirole 0.5 mg tablet 0.5 mg PO DAILY PRN #30 tab 06/28/21 10/04/21 Rx trazodone 50 mg tablet 50 mg PO HS 06/28/21 10/04/21 History fluoxetine 20 mg capsule 20 mg PO DAILY 10/04/21 10/04/21 History Patient History Medical History Depression with anxiety NO LONGER ON MEDS Dermatitis DUE TO NERVE ISSUE Fatigue Goiter Iron deficiency anemia Kidney stone Migraine without aura, not intractable, without status migrainosus HX Multiple sclerosis Optic neuritis Osteoporosis Peptic ulcer disease HX Pulmonary nodule JUST MONITORING Restless leg syndrome Thyroid nodule JUST MONITORING Urinary incontinence Vitamin B12 deficiency Vitamin D deficiency Surgical History History of adenoidectomy History of appendectomy History of bilateral tubal ligation History of section X2 History of colonoscopy History of esophagogastroduodenoscopy (EGD) History of gastric bypass History of hysterectomy History of lithotripsy SEVERAL History of tonsillectomy History of tooth extraction Hx of abdominal surgery TO REPAIR MESH FROM HERNIA SURGERY> REPLACED MESH WITH "PIG SKIN COVERING" Hx of biopsy THYROID Hx of hernia repair SEVERAL Family History Mother Diabetes Social History Smoking Status: Former smoker Cigarettes Per Day: 10; Smoking End Date: 3 years ago; Second Hand Exposure: No; Do You Dip or Chew Tobacco: No; Tobacco Cessation Education Requested by Patient: No Hx Alcohol Use: Yes Alcohol type: beer Hx Substance Use: No Preferred Language: Macedonian Communication Ability: Effective Cathode Washer Required: No Beliefs That Will Affect Care: None Current Living Situation: Spouse Other Information That Helps Us Care for You: No Feels Safe at Home: Yes Safety Concerns: Feels Safe At This Time Assistive Devices: None Review of Systems Review of Systems: All systems reviewed & are unremarkable except as noted in Subjective Physical Exam Constitutional: well nourished and + obese; no acute distress and not ill appearing Respiratory: normal respiratory effort; no respiratory distress, no labored breathing and no retractions Auscultation: no crackles, no rales, no rhonchi and no wheezes Cardiovascular: Rate/Rhythm: regular rate and regular rhythm Heart Sounds: normal S1 and normal S2; no murmur Vessels: radial pulses present; no JVD and no carotid bruit Extremities: no edema Gastrointestinal (Abdomen): Inspection/Auscultation: abdomen normal to inspection and normal bowel sounds; abdomen not distended Percussion/Palpation: abdomen soft; abdomen nontender, no guarding and abdomen not rigid Neurologic: CN's II-XI intact bilaterally and moves all extremities; no focal motor deficits Motor/Sensory: no tremor Psychiatric: A+Ox3, euthymic affect [facility] ([facility]) Vital Signs (Past 12 Hours) Vital Signs Temp Pulse Pulse Resp BP Pulse Ox Pulse Ox 10/06/21 07:50 36.7 C 62 18 109/67 96 10/06/21 02:00 64 10/06/21 01:58 90 10/06/21 01:02 36.7 C 79 18 96/59 L 92 10/05/21 23:18 64
--- NOTE | 2021-10-06 10:48 | Gastrointestinal Consultation ---
Date of Consultation October 06, 2021 Assessment & Plan (1) Recurrent upper abdominal pain: Patient with Hx of Gastric bypass, hernia repair with failed mesh in the past, multiple abdominal surgeries resulting in significant amount of adhesions, her current attack of pain and vomiting resolved which is suggestive of partial SBO that resolved. Recommend: PO PPI. Advance diet as tolerated. EGD electively as OP to r/o anastomotic ulcers. She follows with GI in [place] and will have it done there. Recall GI if needed. (2) Nausea & vomiting: History of Present Illness Attending Physician: Paz Quigley DO History of Present Illness 56 years old female patient with Hx of Gastric bypass, cholecystectomy, recurrent SBO, presented with nausea, vomiting and abdominal pain. Pain was intermittent, nonradiating, periumbilical, associated with diarrhea which now resolved. No melena or hematemesis. Reports she had multiple similar attacks like this in the past which resolves spontaneously. She had an episode of tachycardia yesterday hence transferred to PCU for cardiac monitoring. Today feels great, no pain or vomiting and tolerated liquid diet. Allergies Allergy/AdvReac Type Severity Reaction Status Date / Time cephalexin Allergy Unknown RASH HIVES Verified 06/28/21 10:36 TROUBLE BREATHING ITCHY Cephalosporins Allergy Unknown Rash,hives, Verified 06/28/21 10:36 trouble breathing and itchiness Home Medications Medication Instructions Recorded Confirmed Type pantoprazole 40 mg tablet,delayed 40 mg PO QAM 02/10/20 10/04/21 History release (Protonix) acetaminophen 325 mg capsule 650 mg PO QID PRN 10/12/20 10/04/21 History (Tylenol) ergocalciferol (vitamin D2) 1,250 50,000 unit PO 2XWK 04/10/21 10/04/21 History mcg (50,000 unit) capsule lisinopril 5 mg tablet 5 mg PO BID 06/28/21 10/04/21 History ropinirole 0.5 mg tablet 0.5 mg PO DAILY PRN #30 tab 06/28/21 10/04/21 Rx trazodone 50 mg tablet 50 mg PO HS 06/28/21 10/04/21 History fluoxetine 20 mg capsule 20 mg PO DAILY 10/04/21 10/04/21 History Patient History Medical History Depression with anxiety NO LONGER ON MEDS Dermatitis DUE TO NERVE ISSUE Fatigue Goiter Iron deficiency anemia Kidney stone Migraine without aura, not intractable, without status migrainosus HX Multiple sclerosis Optic neuritis Osteoporosis Peptic ulcer disease HX Pulmonary nodule JUST MONITORING Restless leg syndrome Thyroid nodule JUST MONITORING Urinary incontinence Vitamin B12 deficiency Vitamin D deficiency Surgical History History of adenoidectomy History of appendectomy History of bilateral tubal ligation History of section X2 History of colonoscopy History of esophagogastroduodenoscopy (EGD) History of gastric bypass History of hysterectomy History of lithotripsy SEVERAL History of tonsillectomy History of tooth extraction Hx of abdominal surgery TO REPAIR MESH FROM HERNIA SURGERY> REPLACED MESH WITH "PIG SKIN COVERING" Hx of biopsy THYROID Hx of hernia repair SEVERAL Family History Mother Diabetes Social History Smoking Status: Former smoker Cigarettes Per Day: 10; Smoking End Date: 3 years ago; Second Hand Exposure: No; Do You Dip or Chew Tobacco: No; Tobacco Cessation Education Requested by Patient: No Hx Alcohol Use: Yes Alcohol type: beer Hx Substance Use: No Preferred Language: Albanian Communication Ability: Effective Warehouse Helper Required: No Beliefs That Will Affect Care: None Current Living Situation: Spouse Other Information That Helps Us Care for You: No Feels Safe at Home: Yes Safety Concerns: Feels Safe At This Time Assistive Devices: None Review of Systems Constitutional: no fever, no chills, no fatigue and no weight loss Eyes: no eye pain and no worsening vision Ear, Nose, Mouth, Throat: no tinnitus, no dizziness, no nasal discharge and no epistaxis Respiratory: no cough, no dyspnea, no dyspnea on exertion and no wheezing Cardiovascular: no chest pain, no orthopnea, no palpitations and no edema Gastrointestinal: as per Subjective / HPI Genitourinary: no dysuria, no urinary frequency, no urinary incontinence and no hematuria Musculoskeletal: no stiffness and no myalgia Neurologic: no localized weakness, no paralysis, no tremor(s) and no headache(s) Endocrine: no polydipsia and no polyuria Hematologic / Lymphatic: no easy bleeding and no night sweats Physical Exam Constitutional: + well hydrated, cooperative and comfortable Eyes: PERRL, conjunctivae normal, anicteric sclerae ENMT: external ear and nose normal, oropharynx normal Neck: normal visual inspection and trachea midline Respiratory: normal respiratory effort, lungs clear to auscultation Auscultation: no wheezes Cardiovascular: RRR, no murmur, no edema Gastrointestinal (Abdomen): normal bowel sounds, soft, nontender, no hepatosplenomegaly Musculoskeletal: no cyanosis or clubbing, extremities motor strength 5/5 Skin: no rashes, warm and dry Neurologic: awake; no focal motor deficits Motor/Sensory: no tremor Results & Data ([facility]) Vital Signs (Past 12 Hours) Vital Signs Temp Pulse Pulse Resp BP Pulse Ox Pulse Ox 10/06/21 08:00 75 10/06/21 07:50 36.7 C 62 18 109/67 96 10/06/21 02:00 64 10/06/21 01:58 90 10/06/21 01:02 36.7 C 79 18 96/59 L 92 10/05/21 23:18 64 Laboratory Results Laboratory Results - last 24 hr 10/05/21 10/06/21 10/06/21 07:57 00:22 00:22 WBC RBC Hgb Hct MCV MCH MCHC RDW Std Deviation RDW Coeff of Delphine Plt Count MPV Immature Gran % (Auto) Neut % (Auto) Lymph % (Auto) Hopkins % (Auto) Eos % (Auto) Baso % (Auto) Neut # (Auto) Lymph # (Auto) Hopkins # (Auto) Eos # (Auto) Baso # (Auto) Immature Gran # (Auto) APTT 32.8 H PTT Ratio 1.2 D-Dimer < 190 Sodium Potassium Chloride Carbon Dioxide Anion Gap BUN Creatinine Est Cr Clr Drug Dosing Est GFR ( Amer) Est GFR (Non-Af Amer) BUN/Creatinine Ratio Glucose Lactate Calcium Magnesium 2.4 Total Bilirubin AST ALT Alkaline Phosphatase Troponin I < 0.015 Total Protein Albumin Globulin Albumin/Globulin Ratio Triglycerides Cholesterol LDL Cholesterol, Calc VLDL Cholesterol, Calc HDL Cholesterol Cholesterol/HDL Ratio TSH 1.390 10/06/21 10/06/21 10/06/21 00:22 05:13 05:13 WBC 6.42 5.89 RBC 4.19 L 4.17 L Hgb 12.7 12.6 Hct 39.9 39.7 MCV 95.2 95.2 MCH 30.3 30.2 MCHC 31.8 L 31.7 L RDW Std Deviation 54.1 H 54.6 H RDW Coeff of Delphine 15.4 H 15.5 H Plt Count 224 232 MPV 9.4 9.7 Immature Gran % (Auto) 0.2 Neut % (Auto) 50.9 Lymph % (Auto) 38.5 Hopkins % (Auto) 7.6 Eos % (Auto) 2.3 Baso % (Auto) 0.5 Neut # (Auto) 3.27 Lymph # (Auto) 2.47 Hopkins # (Auto) 0.49 Eos # (Auto) 0.15 Baso # (Auto) 0.03 Immature Gran # (Auto) 0.01 APTT PTT Ratio D-Dimer Sodium 138 Potassium 4.1 Chloride 109 H Carbon Dioxide 26 Anion Gap 3.0 BUN 8 Creatinine 0.67 Est Cr Clr Drug Dosing 100.5 Est GFR ( Amer) 113.1 Est GFR (Non-Af Amer) 97.6 BUN/Creatinine Ratio 12.6 Glucose 85 Lactate Calcium 8.4 L Magnesium Total Bilirubin 0.4 AST 12 L ALT 23 Alkaline Phosphatase 89 Troponin I < 0.015 Total Protein 6.3 L Albumin 3.0 L Globulin 3.3 Albumin/Globulin Ratio 0.9 Triglycerides 124 Cholesterol 159 LDL Cholesterol, Calc 99 VLDL Cholesterol, Calc 25 HDL Cholesterol 35 Cholesterol/HDL Ratio 5 TSH 10/06/21 10/06/21 05:13 05:45 WBC RBC Hgb Hct MCV MCH MCHC RDW Std Deviation RDW Coeff of Delphine Plt Count MPV Immature Gran % (Auto) Neut % (Auto) Lymph % (Auto) Hopkins % (Auto) Eos % (Auto) Baso % (Auto) Neut # (Auto) Lymph # (Auto) Hopkins # (Auto) Eos # (Auto) Baso # (Auto) Immature Gran # (Auto) APTT 32.6 H PTT Ratio 1.2 D-Dimer Sodium Potassium Chloride Carbon Dioxide Anion Gap BUN Creatinine Est Cr Clr Drug Dosing Est GFR ( Amer) Est GFR (Non-Af Amer) BUN/Creatinine Ratio Glucose Lactate 0.4 Calcium Magnesium Total Bilirubin AST ALT Alkaline Phosphatase Troponin I Total Protein Albumin Globulin Albumin/Globulin Ratio Triglycerides Cholesterol LDL Cholesterol, Calc VLDL Cholesterol, Calc HDL Cholesterol Cholesterol/HDL Ratio TSH (1) Nausea & vomiting Vomiting Intractability: non-intractable Vomiting type: unspecified Qualified Code(s): R11.2 - Nausea with vomiting, unspecified
--- NOTE | 2021-10-06 14:25 | Discharge Summary ---
Date of Service October 06, 2021 Admission HPI Per Admitting Provider This is a 56-year-old female with PMHx of multiple sclerosis, restless leg syndrome, hx of SBO, hx of gastric bypass and incarcerated hernia, who presents with acute onset of abdominal pain, nausea intermittent vomiting x 2-weeks. She feels generalized malaise, fatigue and is intermittently tearful during my exam. Pt notes worsening appetite, loss of 10 lbs recently, and feelings like she cannot have a bowel movement with bloating. Last BM was about 5-6 days ago, hard, small, no blood seen in stool. Her diet changed recently as she was attempting to reduce sodium for aortic ectasia. She denies any significant circumstantial changes at home, and is looking forward to going on a cruise with her in December. Pt denies any mood swings, but "at times I feel afraid to go to sleep". She tells me she feels safe at home. Pt denies any recent medication changes. Here in the ER she does not have any concerning findings on imaging for dilation or obstruction. She does have diverticulosis but no inflammatory changes were noted. Pt lab work is essentially normal. Admission Exam Per Admitting Provider General: awake, alert, no apparent distress, + obese with BMI 39.1 Head: Normocephalic, atraumatic ENT: PERRL, EOMI, no pharyngeal exudate, mucous membranes moist Chest: Clear to auscultation, on room air, no adventitious breath sounds Cardiac: Regular rate and rhythm, no murmur, no JVD, normal peripheral pulses, good capillary refill Abdominal: NABS x 4 quadrants, soft, minimally distended, + epigastric tender to palpation, no rebound or guarding Extremities: Normal inspection, no peripheral edema or erythema, calfs nontender to palpation Psych: Anxious mood and labile affect Neuro: AAO x 3, strength intact bilaterally and rated 5/5, no motor deficits, speech is clear, no peripheral sensory deficits, gait observed at bedside and is stable, walks independently Principal Diagnosis nausea and vomiting with recurrent upper abdominal pain, resolved intermittent palpitations tachycardia Discharge Exam CONSTITUTIONAL: obese, vitals stable, generally well-appearing EYES: normal conjunctivae, no scleral icterus ENT: external ear and nose normal, MMM RESPIRATORY: clear to auscultation bilaterally, no crackles, rales or wheezes, normal respiratory effort CARDIOVASCULAR: regular rate and rhythm, S1 and 2 heard without murmurs, gallops or rubs, no JVD, no peripheral edema GASTROINTESTINAL: soft, TTP in RUQ, epigastric and LUQ area, patient states this is chronic and improved since admission MUSCULOSKELETAL: strength 5/5 throughout, head is normocephalic and atraumatic SKIN: warm and dry NEUROLOGIC: CN 2-12 grossly intact, normal cognition, normal speech, no tremor PSYCHIATRIC: alert cooperative and oriented to person, place and time. Discharge Data Allergies Allergy/AdvReac Type Severity Reaction Status Date / Time cephalexin Allergy Unknown RASH HIVES Verified 06/28/21 10:36 TROUBLE BREATHING ITCHY Cephalosporins Allergy Unknown Rash,hives, Verified 06/28/21 10:36 trouble breathing and itchiness Consultations 10/04/21 17:25 ED Decision to Admit Stat 10/05/21 17:37 Consult Gastroenterology Routine 10/06/21 01:58 Consult Cardiology Routine Ordered Studies Laboratory Results WBC 5.89 K/uL (4.8-10.8) 10/06/21 05:13 RBC 4.17 M/uL (4.2-5.4) L 10/06/21 05:13 Hgb 12.6 g/dL (12.0-16.0) 10/06/21 05:13 Hct 39.7 % (37-47) 10/06/21 05:13 MCV 95.2 fL (80-100) 10/06/21 05:13 MCH 30.2 pg (25-34) 10/06/21 05:13 MCHC 31.7 g/dL (32-36) L 10/06/21 05:13 RDW Std Deviation 54.6 fL (36.4-46.3) H 10/06/21 05:13 RDW Coeff of Delphine 15.5 % (11.5-14.5) H 10/06/21 05:13 Plt Count 232 K/uL (130-400) 10/06/21 05:13 MPV 9.7 fL (7.4-10.4) 10/06/21 05:13 Immature Gran % (Auto) 0.2 % 10/06/21 00:22 Neut % (Auto) 50.9 % 10/06/21 00:22 Lymph % (Auto) 38.5 % 10/06/21 00:22 [place] % (Auto) 7.6 % 10/06/21 00:22 Eos % (Auto) 2.3 % 10/06/21 00:22 Baso % (Auto) 0.5 % 10/06/21 00:22 Neut # (Auto) 3.27 K/uL (1.4-6.5) 10/06/21 00:22 Lymph # (Auto) 2.47 K/uL (1.2-3.4) 10/06/21 00:22 [place] # (Auto) 0.49 K/uL (0.11-0.59) 10/06/21 00:22 Eos # (Auto) 0.15 K/uL (0-0.5) 10/06/21 00:22 Baso # (Auto) 0.03 K/uL (0-0.2) 10/06/21 00:22 Immature Gran # (Auto) 0.01 K/uL (0.00-0.02) 10/06/21 00:22 APTT 32.6 Seconds (21.0-31.0) H 10/06/21 05:13 PTT Ratio 1.2 10/06/21 05:13 D-Dimer < 190 ug/L FEU (0-500) 10/06/21 00:22 Sodium 138 mmol/L (136-145) 10/06/21 05:13 Potassium 4.1 mmol/L (3.5-5.1) 10/06/21 05:13 Chloride 109 mmol/L (98-107) H 10/06/21 05:13 Carbon Dioxide 26 mmol/L (21-32) 10/06/21 05:13 Anion Gap 3.0 (3-11) 10/06/21 05:13 BUN 8 mg/dl (7-18) 10/06/21 05:13 Creatinine 0.67 mg/dl (0.6-1.2) 10/06/21 05:13 Est Cr Clr Drug Dosing 100.5 ml/min 10/06/21 05:13 Est GFR ( Amer) 113.1 ml/min 10/06/21 05:13 Est GFR (Non-Af Amer) 97.6 ml/min 10/06/21 05:13 BUN/Creatinine Ratio 12.6 (10-20) 10/06/21 05:13 Glucose 85 mg/dl (70-99) 10/06/21 05:13 Lactate 0.4 mmol/L (0.4-2.0) 10/06/21 05:45 Calcium 8.4 mg/dl (8.5-10.1) L 10/06/21 05:13 Magnesium 2.4 mg/dl (1.8-2.4) 10/05/21 07:57 Total Bilirubin 0.4 mg/dl (0.2-1) 10/06/21 05:13 AST 12 U/L (15-37) L 10/06/21 05:13 ALT 23 U/L (12-78) 10/06/21 05:13 Alkaline Phosphatase 89 U/L (45-117) 10/06/21 05:13 Troponin I < 0.015 ng/ml (0-0.045) 10/06/21 05:13 Total Protein 6.3 gm/dl (6.4-8.2) L 10/06/21 05:13 Albumin 3.0 gm/dl (3.4-5.0) L 10/06/21 05:13 Globulin 3.3 gm/dl (2.5-4.0) 10/06/21 05:13 Albumin/Globulin Ratio 0.9 (0.9-2) 10/06/21 05:13 Triglycerides 124 mg/dl (0-150) 10/06/21 05:13 Cholesterol 159 mg/dl (0-200) 10/06/21 05:13 LDL Cholesterol, Calc 99 mg/dl 10/06/21 05:13 VLDL Cholesterol, Calc 25 mg/dl 10/06/21 05:13 HDL Cholesterol 35 mg/dl 10/06/21 05:13 Cholesterol/HDL Ratio 5 10/06/21 05:13 Lipase 152 U/L (73-393) 10/04/21 14:57 TSH 1.390 uIu/ml (0.300-4.500) 10/05/21 07:57 Urine Color Yellow 10/04/21 14:57 Urine Appearance Clear (Clear) 10/04/21 14:57 Urine pH 6.5 (4.5-7.5) 10/04/21 14:57 Ur Specific [place] 1.019 (1.000-1.030) 10/04/21 14:57 Urine Protein Negative (Negative) 10/04/21 14:57 Urine Glucose (UA) Negative (Negative) 10/04/21 14:57 Urine Ketones Negative (Negative) 10/04/21 14:57 Urine Blood Negative (Negative) 10/04/21 14:57 Urine Nitrite Negative (Negative) 10/04/21 14:57 Urine Bilirubin Negative (Negative) 10/04/21 14:57 Urine Urobilinogen Negative (Negative) 10/04/21 14:57 Ur Leukocyte Esterase Trace (Negative) H 10/04/21 14:57 Urine WBC (Auto) 5-10 /hpf (0-5) H 10/04/21 14:57 Urine RBC (Auto) 0-4 /hpf (0-4) 10/04/21 14:57 U Hyaline Cast (Auto) 1-5 /lpf (0-5) 10/04/21 14:57 U Epithel Cells (Auto) 20-30 /lpf (0-5) H 10/04/21 14:57 Urine Bacteria (Auto) Negative (Negative) 10/04/21 14:57 COVID-19 Eval Order Covid19 at [facility] 10/04/21 14:57 SARS-CoV-2 (PCR) NEGATIVE (Negative) 10/04/21 14:57 Impressions Abdomen/Pelvis CT 10/04/21 14:41 CT abd pelvis IV con only CLINICAL HISTORY: abdominal pain, nausea/vomiting, hx gastric bypass COMPARISON STUDY: 12/12/2019 CT DOSE: 1421.23 mGy.cm TECHNIQUE: Standard CT of the Abdomen and Pelvis was performed with IV contrast. A dose lowering technique was utilized adhering to the principles of ALARA. Contrast Volume: Optiray 320, 94 ml. The patient did not receive oral contrast. FINDINGS: Lung base: The lung bases are clear. Abdominal cavity: There is no evidence for abdominal mass, adenopathy or ascites. Liver: There is homogeneous attenuation of the liver parenchyma. There is no evidence for enhancing mass lesion. Spleen: There is homogeneous attenuation of the splenic parenchyma. There is no enhancing mass lesion. Pancreas: There is homogeneous attenuation of the pancreatic parenchyma. There is no evidence for mass lesion or peripancreatic fluid collection. Gall Bladder: Surgical clips are present previous cholecystectomy. Adrenal glands: The adrenal glands are normal in size and attenuation. There is no evidence for enhancing mass lesion. Kidneys: There is homogeneous attenuation of the renal parenchyma bilaterally. There is no evidence for renal calculus or hydronephrosis. There is no evidence for enhancing mass. Bowel: There is again evidence of previous gastric bypass surgery. There is also evidence of partial small bowel resection with mild persistent focal dilatation of a segment of the jejunum at the site of previous surgery. The bowel loops are otherwise normally placed within the abdomen and pelvis without evidence for dilatation or obstruction. There is again evidence for extensive diverticulosis of the descending and sigmoid colon. There are no inflammatory changes present. There is no evidence for free air. There is no evidence for a dilated appendix. Bladder: The bladder is within normal limits with no evidence for focal mass, calculus or diverticulum. : There is no evidence for pelvic mass or adenopathy. There is no evidence for pelvic ascites. The patient is status post hysterectomy. Vasculature: There is no evidence for aneurysmal dilatation of the abdominal aorta. Osseous structures: There is no acute osseous pathology. Degenerative changes are seen in the lower lumbar spine. IMPRESSION: 1. No acute intra-abdominal or pelvic abnormality. 2. There is again evidence of previous gastric bypass surgery. 3. There is again diverticulosis with no CT evidence for diverticulitis. 4. Additional nonacute findings as delineated above. ACT 112: Negative or not required by law. Electronically signed by: Ronnie Carrero M.D. 10/04/2021 4:47 PM Chest X-Ray 10/05/21 22:17 XR chest 1V portable HISTORY: 56 years-old Female tachy acute tachycardia COMPARISON: Chest radiograph and CTA chest 04/10/2021 TECHNIQUE: Portable AP view of the chest FINDINGS: Cardiac silhouette is mildly enlarged. Mild right hemidiaphragmatic elevation. Mild chronic interstitial coarsening. No pneumothorax, pleural effusion, airspace consolidation or overt pulmonary edema. Surgical anchor of the left humeral head. Degenerative changes of the shoulders and spine. IMPRESSION: No acute process. ACT 112: Negative or not required by law. The above report was generated using voice recognition software. It may contain grammatical, syntax or spelling errors. Electronically signed by: Joe Ly M.D. 10/06/2021 8:30 AM Hospital Course (1) Nausea & vomiting: (2) Intermittent palpitations: (3) Tachycardia: (4) Recurrent upper abdominal pain: (5) History of gastric bypass: (6) Multiple sclerosis: (7) Obesity, morbid, BMI 40.0-49.9: 56-year-old female with a history of gastric bypass, recurrent SBO presented with nausea vomiting and recurrent abdominal pain. Pain was associated with diarrhea which is now resolved. She was admitted to the hospitalist service and a CT of the abdomen pelvis was performed revealing no acute intra-abdominal or pelvic abnormality. After development of intermittent palpitations and tachycardia as well as atypical chest pain, cardiology was co nsulted. There was no documented dysrhythmias on telemetry. She had a normal EKG x2. Resting 2D echocardiogram was performed and within normal limits. As her telemetry monitoring was unrevealing cardiology recommended an outpatient 14-day ZIO monitor for further evaluation. Gastroenterology was also consulted and suggested in the setting of multiple abdominal surgeries resulting in significant amounts of adhesions her attack of pain and vomiting which has now resolved was suggestive of partial SBO that resolved. Oral PPI was recommended with an elective EGD as outpatient to rule out anastomotic ulcers. At time of discharge the patient was tolerating solid food and was hemodynamically stable and afebrile. Her original symptoms had resolved. She was sent home in stable condition with close primary care follow-up recommended. Total Time Total Time Spent Total Time Spent (In Minutes): 60 Discharge Plan Discharge Items Patient Disposition: Home - Self-Care Reason For Visit: ABDOMINAL PAIN Discharge Diagnosis: nausea and vomiting with recurrent upper abdominal pain, resolved intermittent palpitations tachycardia Condition on Discharge: Good Activity: Resume your previous activity Non-emergency contact: Primary Care Provider Call non-emergency contact if: you have any medication questions, your symptoms worsen, your pain is not controlled, your pain is worsening, your pain is unusual for you and your pain is concerning for you Follow-up/Referrals: Tamia Nolasco MD [Primary Care Provider] - (OFFICE WILL CALL YOU WITH APPOINTMENT DATE/TIME) Diet: Regular Addtl Attending Provider Instructions: Please take all medications as instructed on discharge list below. Your thyroid function tests done in the hospital were within normal limits. As a result of your blood pressure being low while in the hospital, it is recommended that you use only lisinopril 5 mg ONCE daily instead of twice daily. As a result of your abdominal pain and recent symptoms, an outpatient upper endoscopy is recommended for you with [facility]. Please cont act their office to schedule this. As a result of your heart palpitations while in the hospital, a two week outpatient event monitor is recommended to ensure you have no underlying abnormal heart rhythms. This will be ordered by your primary care physican on follow-up from the hospital, which is recommended in one week. It was a pleasure taking care of you! Please call if you have any questions or problems. You can reach a [facility] hospitalist on duty at [facility] 24 hours a day by calling [phone]. Take care of yourself. Paz Quigley, DO [facility] Pending Studies at Discharge: No Stand-Alone Forms: My [facility] Medications and DC Order Prescriptions: Continued trazodone 50 mg tablet 50 mg PO HS RF: 0 ropinirole 0.5 mg tablet 0.5 mg PO DAILY PRN (Reason: restless leg(s)) Qty: 30 RF: 5 acetaminophen [Tylenol] 325 mg Capsule 650 mg PO QID PRN (Reason: Pain) RF: 0 pantoprazole [Protonix] 40 mg tablet,delayed release (DR/EC) 40 mg PO QAM RF: 0 ergocalciferol (vitamin D2) 1,250 mcg (50,000 unit) capsule 50,000 unit PO 2XWK RF: 0 fluoxetine 20 mg capsule 20 mg PO DAILY RF: 0 Changed lisinopril 5 mg tablet 5 mg PO DAILY Qty: 0 RF: 0 Discharge Orders: Discharge Order (Routine); Ordered 10/06/21 Ordered By: Paz Shah/Other Patient Handouts: Controlling High Blood Pressure Admission Data Admit Date/Time: 10/05/21 17:38 Attending Provider: Paz Quigley Admit Provider: Vinay Sage Primary Care Provider: Tamia Nolasco Other Providers: Vinay Sage ; Wilfrido Block ; Luis Felipe Alves ; Romeo Jara ; Zeeshan Smith ; Eh Alanis ; Adis Zamora ; Juventino Dorsey ; Angelic Campos ; Cathy Barnhart ; Cammy Fall ; Lalit Moore Other Interventions: Discharge Summary Assessment (RN) Last Done: 10/06/21 14:45
--- NOTE | 2021-10-06 23:15 | Electrocardiogram Report ---
Test Reason : Blood Pressure : / mmHG Vent. Rate : 064 BPM Atrial Rate : 064 BPM P-R Int : 144 ms QRS Dur : 088 ms QT Int : 448 ms P-R-T Axes : 061 054 049 degrees QTc Int : 462 ms Normal sinus rhythm Normal ECG When compared with ECG of 04-OCT-2021 15:24, No significant change was found Confirmed by Charlie Fam ([id number]) on 10/06/2021 11:15:06 PM Referred By: Erika Alanis Confirmed By:Charlie Fam
--- NOTE | 2021-10-06 23:16 | Electrocardiogram Report ---
Test Reason : Blood Pressure : / mmHG Vent. Rate : 065 BPM Atrial Rate : 065 BPM P-R Int : 144 ms QRS Dur : 088 ms QT Int : 450 ms P-R-T Axes : 054 055 053 degrees QTc Int : 468 ms Normal sinus rhythm Cannot rule out Inferior infarct When compared with ECG of 05-OCT-2021 23:10, No significant change was found Confirmed by Charlie Fam ([id number]) on 10/06/2021 11:16:18 PM Referred By: Erika Alanis Confirmed By:Charlie Fam
== END 2021-10-06 15:20 | disposition home or self-care (01) ==
LOC: ED 13:25 → 3N 13:25 → SUATTDRO 17:50 → 3N 18:26 → SUATTDRO 10-05 17:38 → 1E 10-06 01:58

== ENCOUNTER 2024-07-04 21:09 | Inpatient (IN) ==
--- OUTSIDE RECORDS SUMMARY | 2024-07-04 21:13 | External Medical Summary | Continuity of Care Document ---
Author Name Unknown Organization [facility] [address] [facility] [address] [place] [id number] Care Team Providers Care Bin Operator Name Role Phone Tamia Nolasco Primary Care Physician [phone] Encounter [facility] [id number] Date(s): 03/18/24 - 03/18/24 [facility] [address] [facility] [place] [address], [address], [address] [place] [id number] [phone] Encounter Diagnosis Aneurysm, ascending aorta(Discharge Diagnosis) - 03/15/24 Hypertension(Discharge Diagnosis) - 03/15/24 Discharge Disposition: Home or Self Care Attending Physician: FANI Briscoe Mayeen R Allergies, Adverse Reactions, Alerts Substance Reaction Severity Status Keflex Rash Active Glatiramer Acetate Unknown Active Medications FLUoxetine 20 mg oral capsule Start: 06/22/21 13:37:00 EDT, 1 cap, PO, Daily Start Date: 06/22/21 Status: Ordered lisinopril 5 mg oral tablet Start: 06/22/21 13:36:00 EDT, 1 tab, PO, Daily Start Date: 06/22/21 Status: Ordered Neurontin 300 mg oral capsule Start: 10/31/23 8:32:00 EST, 1 cap, PO, tid, Disp# 90 cap, Refills: 2, Pharmacy: [facility]/pharmacy #[id number] Start Date: 10/31/23 Stop Date: 01/29/24 Status: Ordered oxybutynin 10 mg/24 hr oral tablet, extended release Start: 09/09/19 13:01:00 EDT, 1 tab, PO, Daily, PRN Start Date: 09/09/19 Status: Ordered pantoprazole 40 mg oral delayed release tablet Start: 11/14/23 13:13:00 EST, 90 each, TAKE 1 TABLET BY MOUTH EVERY DAY Start Date: 11/14/23 Status: Ordered Protonix 40 mg oral delayed release tablet Start: 12/12/14 15:38:00, 1 tab, PO, Before breakfast, Disp# 30 tab, Refills: 1, Pharmacy: [facility], 1 tab PO Before breakfast Start Date: 12/12/14 Status: Ordered rOPINIRole 0.25 mg oral tablet Start: 09/09/19 13:01:00 EDT, 1 tab, PO, qhs Start Date: 09/09/19 Status: Ordered traZODone 50 mg oral tablet Start: 02/02/21 9:51:00 EST, 1 tab, PO, bid, PRN Start Date: 02/02/21 Status: Ordered triamcinolone topical 0.1% cream Start: 11/16/13 10:53:00, 1 appl, topical, bid, Disp# 454 g, Refills: 3, use moist cool compress after applying, Pharmacy: [facility], 1 appl topical bid,Instr:use moist cool compress after applying Start Date: 11/16/13 Status: Ordered Vitamin B12 1000 mcg/mL injectable solution Start: 03/04/23 12:41:00 EDT, 1,000 mcg =, IM, every 2 months Start Date: 03/04/23 Status: Ordered Vitamin D3 50,000 intl units (1250 mcg) oral capsule TAKE 1 BY MOUTH PER WEEK Start Date: 06/06/22 Status: Ordered Problem List Condition Confirmation Course Effective Dates Status H ealt Status Informant Chest pain Confirmed Active B12 deficiency Confirmed Active Dermatitis Confirmed Active Diverticulosis Confirmed Active History of colon polyps Confirmed Active S/P left rotator cuff repair Confirmed Active Injury of left rotator cuff Confirmed Active Iron deficiency anemia Confirmed Active Left nephrolithiasis Confirmed Active Lumbar radiculopathy Confirmed Active Migraine Confirmed Active Depression Confirmed Active Multiple sclerosis Confirmed Active Heme positive stool Confirmed Active ON (optic neuritis) Confirmed Active Osteoarthritis of left knee Confirmed Active Osteoarthritis of right knee Confirmed Active Osteoporosis Confirmed Active Preop examination Confirmed Active Pulmonary nodule Confirmed Active Thyroid nodule Confirmed Active Tobacco user Confirmed Active Vitamin D deficiency Confirmed Active Weight monitoring Confirmed Active Diagnosis Diagnosis Type Effective Dates Health Status Clinical Service Informant Aneurysm, ascending aorta Discharge Diagnosis 03/15/24 Hypertension Discharge Diagnosis 03/15/24 Procedures Procedure Date Related Diagnosis Body Site Status Plain X-ray of left shoulder 1 09/07/20 Completed Knee X-ray 2 09/09/19 Completed Ultrasound scan of thyroid 3 06/12/18 Completed MRI of cervical spine 4 08/07/[address] of abdomen and pelvis 5, 6 05/05/17 Completed Emergency department patient visit 7 05/05/[address] 8 02/24/17 Completed Emergency department patient visit 9 06/14/16 Completed Venous Doppler of right lower leg 10 06/14/16 Completed Colonoscopy 11, 12, 13 02/13/16 Co mpleted Esophagogastroduodenoscopy 14, 15 02/13/16 Completed Colonoscopy 16 04/06/09 Completed Esophagogastroduodenoscopy 17 04/06/09 Completed delivery Complet ed Cholecystectomy Completed Colonoscopy 18 Completed EGD 19 Completed Gastric bypass 20 Complet ed Hernia repair Completed Hysterectomy Completed Oral surgery Completed Punch biopsy Completed Tonsillectomy and adenoidectomy 21 Completed Tubal ligation 22 Complet ed 1impression: there is mild osteoarthritis of the glenohumeral joint. no significant degenerative change of the AC Joint. no acute fracture, dislocation or opague foreign body. imaged lung oneill appear clear. 2IMPRESSION: Nild osteoarthritis withing the medial compartment of the bilateral knees 31. Multinodular thyroid gland as above. 2. There is a dominant 4.2 cm nodule in the left lobe. If not previously performed, fine-needle aspiration of this nodule is recommended based on size criteria. 4Mild cervical spondylosis. There is a large nodue in the left thyroid lobe; which has been seen on prior exams. 5CT report reviewed conclusion as above, in body of report stated fatty liver, renal cyst, 6Post surgical changes are prior gastric bypass. No evidence of bowel obstruction. No evidence of free air. Extensive diverticulosis. No evidence of actue peridiverticular inflammatory change. Progressive nonspecific nodular thickening of the rectus sheath. 7[facility] ER black stools for 4 days, epigastric pain, n/v, bloating sweating, On Peptobismol stool hemeneg on rectal, CBC nl, UA nl, CMP borderline high gluc 100 and alk phos 118. A/P CT fatty liver, renal cysts, gastric bypass, sigmoid diverticulosis, nodular thickening rectus sheath. 88mm right middle lobe pulmonary nodule. Has not significantly changed since 2013, low suspision. 2.7cm low-attenuation nodule in the left lobe of the thyroid gland. Left sided nephrolithiasis. 9c/o: right leg pain, swollen calf, can't bend leg 10Normal study 11repeat colo 3 years 12COLO to cecum--hep flex poly snared, clipped and tattoo distal, diverticulosis. 13path sessile serrated 14path EG inflammation, SB neg 15EGD gastric bypass,, bx of jejunum, only one limb definitely seen, grade A erosive esophagitisim 16COLO path but no report---prox sigmoid, mid sigmoid and 30 cm--focal mucosal hyperplasia, 25 cm hyperplastic polyp, 24 cm nl, 20 cm hyperplastic polyp, rectal--inflammatory polyp. 17EGD path but no report, Geisenger--Jejunal neg, gastric anastomosis focal chronic gastritis, gastric bx neg, esoph bx at 35 cm mild chronic cardiitis. [id number] per pt 19EGD-2009 2010 YRS ago 21Childhood [id number] Social History Social History Type Response Smoking Status Never smoked cigaret johanna Sex Female Patient Care team information Care Team Personnel Name: MD Gaurav, Tamia Villalba Position: Referring Member Role: Primary Care Provider Address: Address: [address] Name: Dunia Valle Position: HIS Supervisor_P Member Role: HIS Lifetime Care Team Related Persons Name: MURPHY OSBORNE JR Name: MURPHY OSBORNE SR Address: [address] [phone] Name: CONNIE OSBORNE Address: [address] [phone] Name: MURPHY OSBORNE Address: UNKNOWN Address: [address] [phone]
--- OUTSIDE RECORDS SUMMARY | 2024-07-04 21:13 | External Medical Summary | Summary of Care ---
Author Name Unknown Organization [facility] Address [address] [place] [place] [address] Phone [phone] Care Team Providers Care Job Specification Writer Name Role Phone Diane Nolasco MD Primary Care Provid er Reason for Visit * Reason Comments eRx-Medication Refill Encounter Details Date Type Department Care Team (Late st Contact Info) Description 05/14/2024 Refill [facility] [address] [place] [address] Diane Nolasco MD [address] [place] [address] Anxiety with depression; Aortic ectasia (HCC); HTN, goal below 130/80 Allergies Active Allergy Reactions Criticality Noted Date Comments Cephalosporins Hives,Itching Medium 03/08/2003 Glatiramer Acetate 12/18/2021 Chest tightness documented as of this encounter (statuses as of 05/16/2024) Medications Medication Sig Dispensed Refills Start Date End Date Status rOPINIRole (REQUIP) 0.25 MG Tablet Take 1 Tablet by mouth at bedtime as needed (restless legs). Active Fluticasone Propionate 50 MCG/ACT Nasal Suspension (Flonase)Indicat ions:Acute non-recurrent maxillary sinusitis Administer into each nostril 2 Sprays in the morning. 48 mL 3 02/19/2022 Active Additional Information Patient taking differently:2 [place] Each NostrilDAILY PRN, Allergies, Congestion, Informant: Patient, Reported on 12/30/2022 Montelukast Sodium 10 MG Oral Tablet (Singulair) Take 1 Tablet by mouth in the morning. 90 Tablet 3 01/02/2023 Active Pantoprazole Sodium 40 MG Oral Tablet Delayed Release (Protonix)Indica tions:Gastroesop hageal reflux disease, unspecified whether esophagitis present TAKE 1 TABLET BY MOUTH EVERY DAY 90 Tablet 1 09/29/2023 Active FLUoxetine HCl 20 MG Oral Capsule (PROzac)Indicati ons:Anxiety with depression TAKE 1 CAPSULE BY MOUTH EVERY DAY 90 Capsule 05/14/2024 Active Lisinopril 5 MG Oral Tablet (Prinivil)Indica tions:Aortic ectasia (HCC),HTN, goal below 130/80 TAKE 1 TABLET BY MOUTH EVERYDAY AT BEDTIME 90 Tablet 05/14/2024 Active Lisinopril 5 MG Oral Tablet (Prinivil)Indica tions:Aortic ectasia (HCC),HTN, goal below 130/80 TAKE 1 TABLET BY MOUTH EVERYDAY AT BEDTIME 90 Tablet 01/22/2024 05/14/20 24 Discontinued FLUoxetine HCl 20 MG Oral Capsule (PROzac)Indicati ons:Anxiety with depression TAKE 1 CAPSULE BY MOUTH EVERY DAY 90 Capsule 01/22/2024 05/14/20 24 Discontinued documented as of this encounter (statuses as of 05/16/2024) Active Problems Problem Noted Date Diagnosed Date Aneurysm of ascending aorta without rupture 01/02 Rectus sheath hematoma 12/30/2022 Optic neuritis 07/24/2021 History of lobectomy of thyroid 07/24/2021 Aortic ectasia 04/09/2021 Osteoporosis 03/26/2021 Restless legs syndrome 03/26/2021 Urinary incontinence 03/26/2021 Calculus of kidney 02/23/2021 Cobalamin deficiency 02/23/2021 Anxiety with depression 02/23/2021 Diverticular disease 02/23/2021 History of colonic polyps 02/23/2021 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 0 to 44.9 in adult 05/15/2021 01/02/2023 Overview: Per Obesity protocol Thyroid nodule 03/26/2021 07/24/2021 Tobacco user 03/26/2021 01/02/2023 Ileus 02/23/2021 01/02/2023 STOMACH FUNCTION DIS - s/p gastric bypass 12/12/2008 12/30/2017 Malaise and fatigue 12/12/2008 12/30/19 18 Open wound of trunk 12/04/2004 12/30/19 18 documented as of this encounter (statuses as of 05/16/2024) Immunizations Name Administration Dates Next Due COVID-19 mRNA, LNP-s, No Pre serve, 2-Dose Series (Inhibitex) 10/17/2021,03/17/2021,02/17/2021 Seasonal Influenza, PF, 6 M & above, IM , (FluLaval or Fluzone) 11/04/2023,10/21/2022,09/11/2021,2019,12/16/2018 TD, Preservative Free 10/13/2020 TDAP, Age 7 and older, IM (Adacel) 04/10/2009 documented as of this encounter Social History Tobacco Use Types Packs/Day Years Used Date Smoking Tobacco: Former Cigarettes 0.6 34 0 06/10/1985 - 06/10/2019 Smokeless Tobacco: Never Comments:She is a former smo ker. Quit 2019. Smoked 1/2-3/4 ppd from age 19 until 53. Alcohol Use Standard Drinks/Week Comments No 0 (1 standard drink = 0.6 oz pur e alcohol) Occasional PHQ-2 Answer Date Recorded PHQ Adult Total Score 5 04/13/2021 Hunger Vital Sign Answer Date Recorded Within the past 12 months, y ou worried that your food would run out before you got the money to buy more. Never true 01/23/20 21 Within the past 12 months, t he food you bought just didn't last and you didn't have money to get more. Never true 01/23/2021 Sex and Gender Information Value Date Recorded Sex Assigned at Not on file Gender Identity Not on file Sexual Orientation Straight 10/04/2021 12 :26 PM EDT Job Start Date Occupation Industry Not on file Not on file Not on file documented as of this encounter Miscellaneous Notes * Telephone Encounter - Trini Silva PHARM Tech - 05/16/2024 11:27 AM EDT Received message from [facility] regarding patient needing an appointment. Call Placed, Pt was agreeable to set up office visit. Patient scheduled for 05/17/2024. Thank you for your assistance Trini Silva Digital Photographer II [facility] 05/16/2024,11:27 AM * Telephone Encounter - Cecile Montgomery RPh - 05/14/2024 12:23 PM EDTSigned Prescriptions: Disp Refills FLUoxetine HCl 20 MG Oral Capsule (PROzac) 90 Cap*0 Sig: TAKE 1 CAPSULE BY MOUTH EVERY DAY Authorizing Provider: DIANE NOLASCO Ordering User: CECILE MONTGOMERY Lisinopril 5 MG Oral Tablet (Prinivil) 90 Tab*0 Sig: TAKE 1 TABLET BY MOUTH EVERYDAY AT BEDTIME Authorizing Provider: DIANE NOLASOC Ordering User: FLOR MONTGOMERY * Telephone Encounter - Cecile Montgomery RPh - 05/14/2024 12:22 PM EDT 2nd attempt Please contact patient so that an appointment can be scheduled with her PRIMARY CARE provider. Refill authorized to hold patient over in the mean time. Last Visit: 01/21/2023 (in office), 08/14/2021 (telemedicine) Next Visit: Visit date not found Cecile Bueno PharmD Clinical Pharmacist [facility] [phone] 05/14/2024, 12:22 PM documented in this encounter Plan of Treatment Upcoming Encounters Date Type Department Care Team (Late st Contact Info) Description 05/17/2024 1:00 PM EDT Office Visit [facility] [address] [place] [address] Diane Nolasco MD [address] [place] [address] Scheduled Procedures Name Priority Associated Diagnoses Date/Ti me COLONOSCOPY FLEXIBLE PROXIMAL DIAGNOSTIC Recall History of colon polyps Health Maintenance Due Date Last Done Comments Lipid Panel 1965 HIV Screening 1979 Hepatitis C Screening 1982 Hepatitis B (1 of 3 - 19+ 3-dose series) 1983 Cologuard 2009 Fecal Occult Blood Test 2009 Sigmoidoscopy 2009 DXA Scan 2014 Zoster Vaccines (1 of 2) 2014 *BISPHONATE OR OTHER ACCEPTABLE MEDICATION NEEDED FOR OSTEOPOROSIS (REFER TO SMARTSET #1146) 03/29/2021 Depression Monitoring 04/13/2022 04/13/2021 COVID-19 Vaccine ( season) 2023 10/17/2021, 03/17/2021, 02/17/2021 Mammogram 12/26/2023 12/26/2022, 0803/2011, 07/05/2011, Additional history exists Diabetes Screening 09/30/2026 09/30/2023, 0 12/31/2022, 12/30/2022, Additional history exists Colonoscopy 04/22/2027 04/22/2022, 0501/2022, 04/06/2009 Colorectal Cancer Screening 04/22/2027 DTaP,Tdap,and Td Vaccines (3 - Td or Tdap) 10/13/2030 10/13/2020, 04/10/2009 VITAMIN D LEVEL ONCE IN A LIFETIME-USE SMARTSET# [id number] Completed 05/30/2011, 01/23/2011, 09/27/2010, Additional history exists RETIRED - COLONOSCOPY-EVERY 2 YRS AGES 18-100 Discontinued 04/22/2022, 04/22/2022, 04/06/2009 RETIRED - COLONOSCOPY-EVERY 5 YRS AGES 18-100 Discontinued 04/22/2022, 04/22/2022, 04/06/2009 Lung Cancer Screening Completed 12/26/2022 , 10/08/2021, 07/05/2021, Additional history exists Influenza Vaccine (FLU shot) Completed 11/04/2023, 10/21/2022, 09/11/2021, Additional history exists GARDASIL-HPV IMMUNIZATION SERIES Aged Out No longer eligible based on patient's age to complete this topic MENINGOCOCCAL (MENACTRA/MENVEO) Aged Out No longer eligible based on patient's age to complete this topic Pneumococcal Vaccine: Pediatrics (0 to 5 Years) and At-Risk Patients (6 to 64 Years) Aged Out No longer eligible based on patient's age to complete this topic documented as of this encounter Medical Devices Not on filedocumented as of this encounter Visit Diagnoses Diagnosis Anxiety with depression Aortic ectasia (HCC) Aortic ectasia, unspecified site HTN, goal below 130/80 Unspecified essential hypertension documented in this encounter Advance Directives * Full Code (Latest Code Status on File) Date Activated Date Inactivated Comments 12/30/2022 11:38 AM 12/31/2022 6:19 PM This order reflects the patients wishes and were consensually agreed upon. Question Answer Comments Discussion of Advance Directives occurred with: Patient Care Teams Job Specification Writer Relationship Specialty Start Date End Date Diane Nolasco MD [address] [place] [address] PCP - General Family Medicine 01/23/21 documented as of this encounter
--- OUTSIDE RECORDS SUMMARY | 2024-07-04 21:13 | External Medical Summary | Continuity of Care Document ---
Author Name Unknown Organization [id number] Address [address] [place] [id number] Care Team Providers Care Box Sealing Machine Catcher Name Role Phone Tamia Nolasco Primary Care Physician [phone] Encounter [facility]NBR [id number] Date(s): 04/08/24 - 04/08/24 [facility] [address] [id number] [facility] [address] [place] [address] Encounter Diagnosis Knee pain, bilateral(Discharge Diagnosis) - 04/08/24 Discharge Disposition: Home or Self Care Attending Physician: MD Garcia Ravishankar E Allergies, Adverse Reactions, Alerts Substance Reaction Severity [...] tid, Disp# 90 cap, Refills: 2, Pharmacy: [facility]/pharmacy #[id number] Start Date: 10/31/23 Stop Date: 01/29/24 Status: [...] breakfast, Disp# 30 tab, Refills: 1, Pharmacy: [facility], 1 tab PO Before breakfast Start Date: [...] use moist cool compress after applying, Pharmacy: [facility], 1 appl topical bid,Instr:use moist cool compress after applying Start Date: 11/16/13 Status: Ordered Vitamin B12 1000 mcg/mL injectable solution Start: 03/04/23 12:41:00 EDT, 1,000 mcg =, IM, every 2 months Start Date: 03/04/23 Status: Ordered Vitamin D3 50,000 intl units (1250 mcg) oral capsule TAKE 1 BY MOUTH PER WEEK Start Date: 06/06/22 Status: Ordered Mental Status 04/08/24 Barriers to Learning one year None evide nt Mandatory Health Literacy Documentation Yes Health Literacy Communication Barriers N ever Primary Language [place] Problem List Condition Confirmation Course Effective Dates Status H ealth Status Informant Chest pain Confirmed Active B12 [...] Diagnosis Diagnosis Type Effective Dates Health Status Cl inical Service Informant Knee pain, bilateral Discharge Diagnosis 04/08/24 Non-Specified Procedures Procedure Date Related Diagnosis Body Site [...] dislocation or opague foreign body. imaged lung oniell appear clear. 2IMPRESSION: Nild osteoarthritis withing the [...] bx at 35 cm mild chronic cardiitis. [id number] per pt 19EGD-2009 2010 YRS ago 20Childhood [id number] Vital Signs Most recent to oldest [Reference Range]: 1 Height 159.5 cm (04/08/24 1:51 PM) Patient Weight 97 kg (04/08/24 1:51 PM) Body Mass Index 38.13 kg/m2 (04/08/24 1:51 PM) Social History Social History Type Response Smoking Status Never smoked cigaret johanna Sex Female Ortho Outpt Note * MD Jose, Claudia E: MODIFY DO Grant Ravin: PERFORM, MODIFY DO Grant Ravin: MODIFY Event Display: Ortho Outpt Note Authored Date: [id number] Name:TATE OSBORNE Patient Number:[id number] :[id number] Date of Service:04/08/2024 Procedure Name Bilateral Knee Injection Consent I reviewed the procedure of knee joint aspiration and injection and discussed the risks, benefits, and alternative treatments. Verbal and/or written informed consent was obtained and the patient had no additional questions or concerns, electing to proceed. I verified that the patient had no allergies to local anesthetic or betadine. We discussed the potential side effects of corticosteroids injection, including but not limited to local tissue breakdown, elevation of blood sugar, infection, bleeding, and seizures. Indication Bilateral Knee OA Location Bilateral superomedial knees Time Out A procedural pause was conducted to verify correct patient identity, procedure to be performed, andcorrect side and site. Procedure assisted by Dr. Garcia. Pre-Procedure Exam After verification, the L and R knee was marked and then prepped in the usual sterile fashion. Procedural Sedation [place] Technique Using a 22 gauge 1.5 inch needle,4 mL of lidocaine and 1mL (40mg) of depo medrol was injectedinto the Lwithout difficulty. Using a 22 gauge 1.5 inch needle,4 mL of lidocaine and 1mL (40mg) of depo medrol was injected into the R without difficulty. Post-Procedure Exam After injection, the bilateral kneejoints were passively moved through the full range of motion and a sterile bandage was applied. The patient tolerated the procedure well and reportedimprovementof symptoms confirming adequate placement. Aftercare discussed. ATTENDING PHYSICIAN ATTESTATION: I directly supervised the fellow and was present for all parts of the procedure. Verbal and/or written consent obtained by me as the attending on record. Dr. Claudia Garcia MD Electronic Signature on File Electronically Reviewed/Signed by: Randall Grant DO Author Signature Dt/Tm:04/08/2024 01:49 PM Resident Division of Sports Medicine Electronically Reviewed/Signed by: Claudia Garcia MD Cosigner Signature Dt/Tm: 04/08/2024 02:05PM Department of Family Medicine RP Patient Care team information Care Team Personnel Name: MD Nolasco Adela L Position: Referring Member Role: Primary Care Provider Address: Address: [address] Name: Dunia Valle Position: HIS Supervisor_P Member Role: HIS Lifetime Care Team Related Persons Name: MURPHY OSBORNE JR Name: MURPHY OSBORNE SR Address: [address] [id number] Name: CONNIE OSBORNE Address: [address] [id number] Name: MURPHY OSBORNE Address: UNKNOWN Address: [address] [id number]
--- OUTSIDE RECORDS SUMMARY | 2024-07-04 21:13 | External Medical Summary ---
Author Name Unknown Address Unknown Organization [id number]:[facility]ORY [facility] - [facility] [address] [facility] [address] Laboratory Report Ordering Provider Test Date Status PINEDA CONTRERAS 06/28/2024 11:05:53 Final Observation Date Value Abnormality Reference (Units ) Status HIV 1+2 Ab+HIV1 p24 Ag [Presence] in Serum or Plasma by Immunoassay 06/28/2024 11:05:53 Negative Negative Final Negative HIV-1/2 antigen and antibody screening tset results usually indicate the absence of HIV-1 and HIV-2 infection. However, such negative results do not rule-out acute HIV infection. If acute HIV-1 infection is highly suspected, it is recommended that a specimen be submitted for detection of HIV-1 RNA. Performing Location [facility]ORY [facility] - [address] [facility] [address]
--- OUTSIDE RECORDS SUMMARY | 2024-07-04 21:13 | External Medical Summary ---
Author Name Unknown Address Unknown Organization K01:[facility] [place] [address] [place] [address] Laboratory Report Ordering Provider Test Date Status PINEDA CONTRERAS 06/28/2024 11:05:53 Final Observation Date Value Abnormality Reference (Units ) Status Erythrocyte sedimentation rate by Photometric method 06/28/2024 11:05:53 10 <30 (mm/hour) Final Performing Location LABORATORY [facility] - [address] [place] [address]
--- OUTSIDE RECORDS SUMMARY | 2024-07-04 21:13 | External Medical Summary | Summary of Care ---
Author Name Unknown Organization [facility] Address [address] [facility] [place] [address] Phone [phone] Care Team Providers Care Process Control Operator Name Role Phone Tamia Nolasco MD Primary Care Provid er Reason for Visit * Reason Onset Date Comments Health Maintenance 06/15/2024 Encounter Details Date Type Department Care Team (Late st Contact Info) Description 06/15/2024 Telephone [facility] [address] [place] [address] Tamia Nolasco MD [address] [place] [address] Health Maintenance Allergies Active Allergy Reactions Criticality Noted Date Comments Cephalosporins Hives,Itching Medium 03/08/2003 Glatiramer Acetate 12/18/2021 Chest tightness documented as of this encounter (statuses as of 06/15/2024) Medications Medication Sig Dispensed Refills Start Date End Date Status rOPINIRole (REQUIP) 0.25 MG Tablet Take 1 Tablet by mouth at bedtime as needed (restless legs). Active Fluticasone Propionate 50 MCG/ACT Nasal Suspension (Flonase)Indicatio ns:Acute non-recurrent maxillary sinusitis Administer into each nostril 2 Sprays in the morning. 48 mL 3 02/19/2022 Active Additional Information Patient taking differently:2 [place] Each NostrilDAILY PRN, Allergies, Congestion, Informant: Patient, Reported on 12/30/2022 Montelukast Sodium 10 MG Oral Tablet (Singulair) Take 1 Tablet by mouth in the morning. 90 Tablet 3 01/02/2023 Active Pantoprazole Sodium 40 MG Oral Tablet Delayed Release (Protonix)Indicati ons:Gastroesophage al reflux disease, unspecified whether esophagitis present TAKE 1 TABLET BY MOUTH EVERY DAY 90 Tablet 1 09/29/2023 Active Lisinopril 5 MG Oral Tablet (Prinivil)Indicati ons:Aortic ectasia (HCC),HTN, goal below 130/80 TAKE 1 TABLET BY MOUTH EVERYDAY AT BEDTIME 90 Tablet 05/14/2024 Active hydrOXYzine HCl 10 MG Oral Tablet (Atarax)Indication s:Anxiety Take 1 Tablet by mouth every 6 hours as needed for Anxiety. 40 Tablet 2 05/28/2024 Active DULoxetine HCl 30 MG Oral Capsule Delayed Release Particles (Cymbalta)Indicati ons:Anxiety,Other chronic pain Take 1 Capsule by mouth in the morning. Do not cut, crush or chew. 30 Capsule 5 05/28/2024 Active Sulfamethoxazole-T rimethoprim 800-160 MG Oral Tablet (Bactrim DS) Take 1 Tablet by mouth in the morning and 1 Tablet before bedtime. Do all this for 10 days. Until gone.. 20 Tablet 06/14/2024 06/24/2024 Active documented as of this encounter (statuses as of 06/15/2024) Active Problems Problem Noted Date Diagnosed Date [...] as of this encounter (statuses as of 06/15/2024) Resolved Problems Problem Noted Date Diagnosed Date [...] as of this encounter (statuses as of 06/15/2024) Immunizations Name Administration Dates Next Due COVID-19 mRNA, LNP-s, No Pre serve, 2-Dose Series (Pfizer) 10/17/2021,03/17/2021,02/17/2021 Seasonal Influenza, PF, 6 M & above, IM , (FluLaval or Fluzone) 11/04/2023,10/21/2022,09/11/2021,2019,12/16/2018 TD, Preservative Free 10/13/2020 TDAP, Age 7 and older, IM (Adacel) 06/14/2024, documented as of this encounter Social History Tobacco Use Types Packs/Day Years Used Date Smoking Tobacco: Former Cigarettes 0.6 34 0 06/10/1985 - 06/10/2019 Passive Smoke Exposure: Current Smokeless Tobacco: Never Comments:She is a former [...] money to get more. Never true 01/23/2021 Utilities Answer Date Recorded Do you have trouble paying y our heating, water, or electric bill? (Adult - for ages 18 years and over) Not on file 05/18/2024 Is your family able to pay t he heat, water, or electric bill? (Household - for ages 0-17 years) Not on file 05/18/2024 Does your family have access to good internet? (Household - for ages 0-17 years) Not on file 05/18/2024 Social Connections Answer Date Recorded How often do you feel lonely or isolated from those around you? (Adult - for ages 18 years and over) Not on file 05/18/2024 Sex and Gender Information Value Date Recorded Sex Assigned at Not on file Gender Identity Not on file Sexual Orientation Straight 10/04/2021 12 :26 PM EDT Job Start Date Occupation Industry Not on file Not on file Not on file documented as of this encounter Miscellaneous Notes * Telephone Encounter - Kelly STEPHANIE Hammer - 06/15/2024 11:06 AM EDT Care Gaps Comprehensive Care Outreach Last Office/Telemedicine Visit: 06/14/2024 (in office), 08/14/2021 (telemedicine) Next Office Visit: 06/28/2024 Hemoglobin AIC Results: No results found for: "HEMOGLOBIN A1C" BP Readings from Last 1 Encounters: 06/14/24 130/70 Reviewed Health Maintenance below: Health Maintenance Topic Date Due Lipid Panel Never done HIV Screening Never done Hepatitis C Screening Never done Hepatitis B Vaccine (1 of 3 - 19+ 3-dose series) Never done DXA Scan Never done Zoster Vaccines (1 of 2) Never done *BISPHONATE OR OTHER ACCEPTABLE MEDICATION NEEDED FOR OSTEOPOROSIS (REFER TO SMARTSET #1146) Never done Depression Monitoring 04/13/2022 COVID-19 Vaccine ( season) 2023 Mammogram 12/26/2023 Lipid already ordered Dexa ordered this month Mamm ordered this month Care Gap Outreach Action Taken: Outreach not indicated documented in this encounter Plan of Treatment Upcoming Encounters Date Type Department Care Team (Late st Contact Info) Description 06/28/2024 10:40 AM EDT Office Visit [facility] [address] [place] [address] Tamia Nolasco MD [address] [place] [address] Scheduled Procedures Name Priority Associated Diagnoses Date/Ti me COLONOSCOPY FLEXIBLE PROXIMAL DIAGNOSTIC Recall History of colon polyps Health Maintenance Due Date Last Done Comments Lipid Panel 1965 HIV Screening 1979 Hepatitis C Screening 1982 Hepatitis B Vaccine (1 of 3 - 19+ 3-dose series) 1983 Cologuard 2009 Fecal Occult Blood Test 2009 Sigmoidoscopy 2009 DXA Scan 2014 Zoster Vaccines (1 of 2) 2014 *BISPHONATE OR OTHER ACCEPTABLE MEDICATION NEEDED FOR OSTEOPOROSIS (REFER TO SMARTSET #1146) 03/29/2021 Depression Monitoring 04/13/2022 04/13/2021 COVID-19 Vaccine ( - season) 2023 10/17/2021, 03/17/2021, 02/17/2021 Mammogram 12/26/2023 12/26/2022, 08/0 03/2011, 07/05/2011, Additional history exists Influenza Vaccine (FLU shot) (#1) 2024 11/04/2023, 10/21/2022, 09/11/2021, Additional history exists Diabetes Screening 09/30/2026 09/30/2023, 0 12/31/2022, 12/30/2022, Additional history exists Colonoscopy 04/22/2027 04/22/2022, 05/01/2022, 04/06/2009 Colorectal Cancer Screening 04/22/2027 DTaP,Tdap,and Td Vaccines (4 - Td or Tdap) 06/14/2034 06/14/2024, 10/13/2020, 04/10/2009 VITAMIN D LEVEL ONCE IN A LIFETIME-USE SMARTSET# [id number] Completed 05/30/2011, 01/23/2011, 09/27/2010, Additional history exists RETIRED - COLONOSCOPY-EVERY 2 YRS AGES 18-100 Discontinued 04/22/2022, 04/22/2022, 04/06/2009 RETIRED - COLONOSCOPY-EVERY 5 YRS AGES 18-100 Discontinued 04/22/2022, 04/22/2022, 04/06/2009 Lung Cancer Screening Completed 12/26/2022 , 10/08/2021, 07/05/2021, Additional history exists HPV (Gardasil) Vaccine Aged Out No lo nger eligible based on patient's age to complete [...] Not on filedocumented as of this encounter Advance Directives * Full Code (Latest Code Status on File) Date Activated Date Inactivated Comments 12/30/2022 11:38 AM 12/31/2022 6:19 PM This order reflects the patients wishes and were consensually agreed upon. Question Answer Comments Discussion of Advance Directives occurred with: Patient Care Teams Process Control Operator Relationship Specialty Start Date End Date Tamia Nolasco MD [address] [place] [address] PCP - General Family Medicine 01/23/21 documented as of this encounter
--- OUTSIDE RECORDS SUMMARY | 2024-07-04 21:13 | External Medical Summary | Summary of Care ---
Author Name Unknown Organization [facility] Address [address] [facility] [place] [address] Phone [phone] Care Team Providers Care Substance Abuse Rn Name Role Phone Tamia Nolasco MD Primary Care Provid er Reason for Visit * Reason Comments Follow Up Elbow red/ purple an d painful with skin irritation Ear pains as well Also has sweats and is not sure why Has some neck pain too Encounter Details Date Type Department Care Team (Late st Contact Info) Description 05/28/2024 10:00 AM EDT Office Visit [facility] [address] [place] [address] Tamia Nolasco MD [address] [place] [address] Encounter for long-term (current) use of medications*; Urticaria, chronic; Vitamin D deficiency; Screening for HIV without presence of risk factors; Screening for lipid disorders; Encounter for hepatitis C screening test for low risk patient; Anxiety; Other chronic pain Allergies Active Allergy Reactions Criticality Noted Date Comments Cephalosporins Hives,Itching Medium 03/08/2003 Glatiramer Acetate 12/18/2021 Chest tightness documented as of this encounter (statuses as of 05/28/2024) Medications Medication Sig Dispensed Refills Start Date End Date Status rOPINIRole (REQUIP) 0.25 MG Tablet Take 1 Tablet by mouth at bedtime as needed (restless legs). Active Fluticasone Propionate 50 MCG/ACT Nasal Suspension (Flonase)Indica tions:Acute non-recurrent maxillary sinusitis Administer into each nostril 2 Sprays in the morning. 48 mL 3 2 Active Additional Information Patient taking differently:2 Mcgrady Each NostrilDAILY PRN, Allergies, Congestion, Informant: Patient, Reported on 12/30/2022 Montelukast Sodium 10 MG Oral Tablet (Singulair) Take 1 Tablet by mouth in the morning. 90 Tablet 3 3 Active Pantoprazole Sodium 40 MG Oral Tablet Delayed Release (Protonix)Indic ations:Gastroes ophageal reflux disease, unspecified whether esophagitis present TAKE 1 TABLET BY MOUTH EVERY DAY 90 Tablet 1 3 Active Lisinopril 5 MG Oral Tablet (Prinivil)Indic ations:Aortic ectasia (HCC),HTN, goal below 130/80 TAKE 1 TABLET BY MOUTH EVERYDAY AT BEDTIME 90 Tablet 4 Active hydrOXYzine HCl 10 MG Oral Tablet (Atarax)Indicat ions:Anxiety Take 1 Tablet by mouth every 6 hours as needed for Anxiety. 40 Tablet 2 4 Active DULoxetine HCl 30 MG Oral Capsule Delayed Release Particles (Cymbalta)Indic ations:Anxiety, Other chronic pain Take 1 Capsule by mouth in the morning. Do not cut, crush or chew. 30 Capsule 5 4 Active FLUoxetine HCl 10 MG Oral Capsule (PROzac)Indicat ions:Anxiety Take daily for 10 days then stop. 10 Capsule 4 Active FLUoxetine HCl 20 MG Oral Capsule (PROzac)Indicat ions:Anxiety with depression TAKE 1 CAPSULE BY MOUTH EVERY DAY 90 Capsule 4 05/28/20 24 Discontinued Gabapentin 300 MG Oral Capsule (Neurontin) 1 Capsule. 3 05/28/20 24 Discontinued(Pat ient preference/disco ntinuation) documented as of this encounter (statuses as of 05/28/2024) Active Problems Problem Noted Date Diagnosed Date [...] as of this encounter (statuses as of 05/28/2024) Resolved Problems Problem Noted Date Diagnosed Date [...] as of this encounter (statuses as of 05/28/2024) Immunizations Name Administration Dates Next Due COVID-19 [...] Comments:She is a former smo ker. Quit 2018. Smoked 1/2-3/4 ppd from age 19 until [...] on file documented as of this encounter Last Filed Vital Signs Vital Sign Reading Time Taken Comments Blood Pressure 124/68 05/28/2024 10:00 AM EDT Pulse 75 05/28/2024 10:00 AM EDT Temperature 36.4 C (97.6 F) 05/28/2024 10:00 AM E DT Respiratory Rate 17 05/28/2024 10:00 AM EDT Oxygen Saturation 96% 05/28/2024 10:00 AM EDT Inhaled Oxygen Concentration - - Weight - - Height 156.2 cm (5' 1.5") 05/28/2024 10:00 AM ED T Body Mass Index - - documented in this encounter Progress Notes * Tamia Nolasco MD - 05/28/2024 10:14 AM EDT ASSESSMENT / PLAN: Gretchen Munoz is a 58 year old female with PMHx pulm nodule / aortic ectasia / MS / iron def anemia s/p gastric bypass - here for acute Urticaria Advised H1B and H2B prn Anxiety / chronic pain Not well controlled Switch from fluoxetine to duloxetine Vistaril prn Follow Up: Return for Fasting Labs Soon. | For: Fasting Labs Soon | Check-out note: Keep f/u in May Encounter for long-term (current) use of medications (Primary) - COMPREHENSIVE METABOLIC PANEL; Future; Expected date: 05/28/2024 - TSH WITH FREE T4 IF INDICATED; Future; Expected date: 05/28/2024 - VITAMIN B12; Future; Expected date: 05/28/2024 - 25-HYDROXY VITAMIN D; Future; Expected date: 05/28/2024 Urticaria, chronic Vitamin D deficiency Screening for HIV without presence of risk factors - HIV ANTIGEN & ANTIBODY SCREEN W/ CONFIRMATION; Future; Expected date: 05/28/2024 Screening for lipid disorders - LIPID PANEL WITH DIRECT LDL IF TG IS HIGH; Future; Expected date: 05/28/2024 Encounter for hepatitis C screening test for low risk patient - HEPATITIS C ANTIBODY SCREEN WITH PROGRESSION TO HEPATITIS C RNA QUANTITATIVE; Future; Expected date: 05/28/2024 Anxiety - hydrOXYzine HCl 10 MG Oral Tablet (Atarax); Take 1 Tablet by mouth every 6 hours as needed for Anxiety. - DULoxetine HCl 30 MG Oral Capsule Delayed Release Particles (Cymbalta); Take 1 Capsule by mouth in the morning. Do not cut, crush or chew. - FLUoxetine HCl 10 MG Oral Capsule (PROzac); Take daily for 10 days then stop. Other chronic pain - DULoxetine HCl 30 MG Oral Capsule Delayed Release Particles (Cymbalta); Take 1 Capsule by mouth in the morning. Do not cut, crush or chew. Follow Up: Return for Fasting Labs Soon. | For: Fasting Labs Soon | Check-out note: Keep f/u in May If needed, prefers contact by: Ok to leave message on phone: SUBJECTIVE: Nursing Notes: Jacqueline Floyd LPN 05/28/24 1008 Signed The patient has been properly identified by confirmation of name and date of . Chief Complaint Patient presents with Follow Up Elbow red/ purple and painful with skin irritation Ear pains as well Also has sweats and is not sure why Has some neck pain too HPI: Gretchen Munoz is a 58 year old female. Here for recheck. Skin itches a lot, will scratch till it bleeds +stressors - with family Anxiety not well controlled Sleep is poor Reviewed sources 1-Neuro - 08/13/23 - +new symptoms of visual changes - plan to check MRI brain and orbit, carotid doppler, labs. Patient Active Problem List Diagnosis Multiple sclerosis (HCC) Anemia Vitamin D deficiency History of gastric bypass History of hysterectomy Calculus of kidney Cobalamin deficiency Anxiety with depression Diverticular disease History of colonic polyps Inflammatory dermatosis Injury of left rotator cuff Iron deficiency anemia Solitary pulmonary nodule Migraine without aura and without status migrainosus, not intractable Osteoporosis Restless legs syndrome S/P left rotator cuff repair Urinary incontinence Aortic ectasia (HCC) Optic neuritis History of lobectomy of thyroid Rectus sheath hematoma Aneurysm of ascending aorta without rupture (HCC) Current Outpatient Medications Medication Sig Dispense Refill rOPINIRole (REQUIP) 0.25 MG Tablet Take 1 Tablet by mouth at bedtime as needed (restless legs). Fluticasone Propionate 50 MCG/ACT Nasal Suspension (Flonase) Administer into each nostril 2 Sprays in the morning. (Patient taking differently: Administer 2 Sprays into each nostril daily as needed for Allergies or Congestion.) 48 mL 3 Montelukast Sodium 10 MG Oral Tablet (Singulair) Take 1 Tablet by mouth in the morning. 90 Tablet 3 Pantoprazole Sodium 40 MG Oral Tablet Delayed Release (Protonix) TAKE 1 TABLET BY MOUTH EVERY DAY 90 Tablet 1 Lisinopril 5 MG Oral Tablet (Prinivil) TAKE 1 TABLET BY MOUTH EVERYDAY AT BEDTIME 90 Tablet 0 hydrOXYzine HCl 10 MG Oral Tablet (Atarax) Take 1 Tablet by mouth every 6 hours as needed for Anxiety. 40 Tablet 2 DULoxetine HCl 30 MG Oral Capsule Delayed Release Particles (Cymbalta) Take 1 Capsule by mouth in the morning. Do not cut, crush or chew. 30 Capsule 5 FLUoxetine HCl 10 MG Oral Capsule (PROzac) Take daily for 10 days then stop. 10 Capsule 0 No current facility-administered medications for this visit. OBJECTIVE: BP 124/68 | Pulse 75 | Temp 36.4 C (97.6 F) | Resp 17 | Ht 1.562 m (5' 1.5") | SpO2 96% | BMI 39.04 kg/m | BSA 2.03 m Vitals reviewed and is normotensive / afebrile / and not tachycardic General: No acute distress. Neuro: Alert Pleasant & interactive. Respiratory: Good inspiratory effort, no labored breathing. HEENT: Conjunctivae appear clear. No swelling noted face or lips. Skin: dry patches on knees. +excoriations on upper arms Psych: Normal affect. Fluent speech. Tamia Nolasco MD [facility] [address] [facility] [id number] There are no Patient Instructions on file for this visit. documented in this encounter Nursing Notes * Jacqueline Floyd LPN - 05/28/2024 10:08 AM EDT The patient has been properly identified by confirmation of name and date of . Chief Complaint Patient presents with Follow Up Elbow red/ purple and painful with skin irritation Ear pains as well Also has sweats and is not sure why Has some neck pain too documented in this encounter Plan of Treatment Upcoming Encounters Date Type Department Care Team (Late st Contact Info) Description 06/28/2024 10:40 AM EDT Office Visit [facility] [address] [place] [address] Tamia Nolasco MD [address] [place] [address] Scheduled Orders Name Type Priority Associated Diagnoses Orde r Schedule COMPREHENSIVE METABOLIC PANEL Lab Routine Encounter for long-term (current) use of medications Expected: 05/28/2024 (Approximate), Expires: 05/28/2025 TSH WITH FREE T4 IF INDICATED Lab Routine Encounter for long-term (current) use of medications Expected: 05/28/2024 (Approximate), Expires: 05/28/2025 VITAMIN B12 Lab Routine Encounter for long-term (current) use of medications Expected: 05/28/2024 (Approximate), Expires: 05/28/2025 25-HYDROXY VITAMIN D Lab Routine Encounter for long-term (current) use of medications Expected: 05/28/2024 (Approximate), Expires: 05/28/2025 LIPID PANEL WITH DIRECT LDL IF TG IS HIGH Lab Routine Screening for lipid disorders Expected: 05/28/2024, Expires: 05/28/2025 HIV ANTIGEN & ANTIBODY SCREEN W/ CONFIRMATION Lab Routine Screening for HIV without presence of risk factors Expected: 05/28/2024 (Approximate), Expires: 05/28/2025 HEPATITIS C ANTIBODY SCREEN WITH PROGRESSION TO HEPATITIS C RNA QUANTITATIVE Lab Routine Encounter for hepatitis C screening test for low risk patient Expected: 05/28/2024 (Approximate), Expires: 05/28/2025 Scheduled Procedures Name Priority Associated Diagnoses Date/Ti [...] 12/26/2022, 08/0 03/2011, 07/05/2011, Additional history exists Diabetes Screening 09/30/2026 09/30/2023, 0 12/31/2022, 12/30/2022, Additional history exists Colonoscopy 04/22/2027 04/22/2022, 04/01, 04/06/2009 Colorectal Cancer Screening 04/22/2027 DTaP,Tdap,and Td Vaccines (3 - Td or Tdap) 10/13/2030 10/13/2020, 04/10/2009 VITAMIN D LEVEL ONCE IN A LIFETIME-USE SMARTSET# [id number] Completed 05/30/2011, 01/23/2011, 09/27/2010, Additional history exists [...] as of this encounter Visit Diagnoses Diagnosis Encounter for long-term (current) use of medications- Primary Encounter for long-term (current) use of other medications Urticaria, chronic Other specified urticaria Vitamin D deficiency Unspecified vitamin D deficiency Screening for HIV without presence of risk factors Special screening examination for other specified viral diseases Screening for lipid disorders Encounter for hepatitis C screening test for low risk patient Anxiety Anxiety state, unspecified Other chronic pain documented in this encounter Advance Directives * Full Code (Latest Code Status on File) Date Activated Date Inactivated Comments 12/30/2022 11:38 AM 12/31/2022 6:19 PM This order reflects the patients wishes and were consensually agreed upon. Question Answer Comments Discussion of Advance Directives occurred with: Patient Care Teams Substance Abuse Rn Relationship Specialty Start Date End Date Tamia Nolasco MD [address] [facility] [place] [address] PCP - General Family Medicine 01/23/21 documented as of this encounter
--- OUTSIDE RECORDS SUMMARY | 2024-07-04 21:13 | External Medical Summary | Summary of Care ---
Author Name Unknown Organization [facility] Address [address] [facility] [place] [address] Phone [phone] Care Team Providers Care Cash Reconciliation Specialist Name Role Phone Tamia Nolasco MD Primary Care Provid er Reason for Visit * Reason Comments Acute Pt here today due to having stepped on a nail with her left foot Encounter Details Date Type Department Care Team (Late st Contact Info) Description 06/14/2024 12:00 PM EDT Office Visit [facility] [place] [address] [place] [address] Magdalena Dumas MD [address] [place] [address] Puncture wound of left heel, initial encounter*; Vaccine for viral hepatitis; Encounter for screening mammogram for malignant neoplasm of breast; Need for prophylactic vaccination with tetanus-diphtheria (Td) Allergies Active Allergy Reactions Criticality Noted Date Comments Cephalosporins Hives,Itching Medium 03/08/2003 Glatiramer Acetate 12/18/2021 Chest tightness documented as of this encounter (statuses as of 06/14/2024) Medications Medication Sig Dispensed Refills Start Date End Date Status rOPINIRole (REQUIP) 0.25 MG Tablet Take 1 Tablet by mouth at bedtime as needed (restless legs). Active Fluticasone Propionate 50 MCG/ACT Nasal Suspension (Flonase)Indicati ons:Acute non-recurrent maxillary sinusitis Administer into each nostril 2 Sprays in the morning. 48 mL 3 02/19/2022 Active Additional Information Patient taking differently:2 Gilby Each NostrilDAILY PRN, Allergies, Congestion, Informant: Patient, Reported on 12/30/2022 Montelukast Sodium 10 MG Oral Tablet (Singulair) Take 1 Tablet by mouth in the morning. 90 Tablet 3 01/02/2023 Active Pantoprazole Sodium 40 MG Oral Tablet Delayed Release (Protonix)Indicat ions:Gastroesopha geal reflux disease, unspecified whether esophagitis present TAKE 1 TABLET BY MOUTH EVERY DAY 90 Tablet 1 09/29/2023 Active Lisinopril 5 MG Oral Tablet (Prinivil)Indicat ions:Aortic ectasia (HCC),HTN, goal below 130/80 TAKE 1 TABLET BY MOUTH EVERYDAY AT BEDTIME 90 Tablet 05/14/2024 Active hydrOXYzine HCl 10 MG Oral Tablet (Atarax)Indicatio ns:Anxiety Take 1 Tablet by mouth every 6 hours as needed for Anxiety. 40 Tablet 2 05/28/2024 Active DULoxetine HCl 30 MG Oral Capsule Delayed Release Particles (Cymbalta)Indicat ions:Anxiety,Othe r chronic pain Take 1 Capsule by mouth in the morning. Do not cut, crush or chew. 30 Capsule 5 05/28/2024 Active Sulfamethoxazole- Trimethoprim 800-160 MG Oral Tablet (Bactrim DS) Take 1 Tablet by mouth in the morning and 1 Tablet before bedtime. Do all this for 10 days. Until gone.. 20 Tablet 06/14/2024 4 Active FLUoxetine HCl 10 MG Oral Capsule (PROzac)Indicatio ns:Anxiety Take daily for 10 days then stop. 10 Capsule 05/28/2024 4 Discontinue d(Patient preference/ discontinua tion) documented as of this encounter (statuses as of 06/14/2024) Active Problems Problem Noted Date Diagnosed Date [...] as of this encounter (statuses as of 06/14/2024) Resolved Problems Problem Noted Date Diagnosed Date [...] as of this encounter (statuses as of 06/14/2024) Immunizations Name Administration Dates Next Due COVID-19 [...] Passive Smoke Exposure: Current Smokeless Tobacco: Never Tobacco Cessation:Counseling Given: Not Answered Comments:She is a former smoker. Quit 2019. Smoked 1/2-3/4 ppd from age [...] Sign Reading Time Taken Comments Blood Pressure 130/70 06/14/2024 11:53 AM EDT Pulse 89 06/14/2024 11:53 AM EDT Temperature 37 C (98.6 F) 06/14/2024 11:53 AM EDT Respiratory Rate 18 06/14/2024 11:53 AM EDT Oxygen Saturation 95% 06/14/2024 11:53 AM EDT Inhaled Oxygen Concentration - - Weight 98.9 kg (218 lb) 06/14/2024 11:53 AM EDT Height - - Body Mass Index 40.52 05/28/2024 10:00 AM EDT documented in this encounter Patient Instructions * Patient Instructions* Tio Miriam M, STEPHANIE - 06/14/2024 11:57 AM EDT Images from the original note were not included. Vaccination is the best way to protect against hepatitis B. Most people should get 3 doses of hepatitis B vaccine. If you miss a dose or get behind schedule, get the next dose as soon as you can. There is no need to start over. Age for Hepatitis B Vaccine: INFANTS: *Infants whose mother HAS hepatitis B virus: #1 dose- at 2 month visit #2 dose- 1 month after dose #1 #3 dose- 7 months of age (at least 5 months after dose #1) *Infants whose mother does NOT have hepatitis B virus: #1 dose- - 2 months of age #2 dose- 1-4 months of age (at least 1 month after dose #1) #3 dose- 6-18 months of age ( at least 2 months after dose #2) *Other recommended age groups #1 dose- Now #2 dose- 1-2 months after dose #1 #3 dose- 4-6 months after dose #1 WHAT ARE THE RISKS FROM HEPATITIS B VACCINE? Hepatitis B vaccine is one of the safest vaccines. Getting the disease is much more likely to causeserious illness than getting the vaccine. MILD PROBLEMS: - soreness where the shot was given. - mild to moderate fever Acetaminophen or Ibuprofen (not aspirin) may be used to reduce fever and pain. SEVERE PROBLEMS: - serious allergic reaction is very rare. WHAT TO DO IF THERE IS A SERIOUS REACTION: - Call a doctor or get the person to a doctor right away. - Ask your doctor, nurse, or health department to file a Vaccine Adverse Event Report form. To filea report yourself you can call: (toll-free) LET YOUR DOCTOR KNOW IMMEDIATELY IF YOU HAVE DIFFICULTY BREATHING OR SWALLOWING, EXPERIENCE ITCHING OF FEET OR HANDS, HAVE SWELLING OF EYES, FACE OR INSIDE OF NOSE. Osteoporosis: Screening for Bone Loss The strength of bones is measured by their density (thickness). High bone density means bones are less likely to fracture. If you are at risk for bone loss, your healthcare provider may refer you forbone density testing. Bone Density Testing Bone density testing is safe, quick, easy, and painless. Testing can detect osteoporosis before a fracture happens. It can also predict the risk of future fractures. And testing can measure the response to treatment. There are two types of tests that you may have: Peripheral tests are used for screening. They measure density in the finger, wrist, knee, gregorio, or heel. A common peripheral test is the quantitative ultrasound (QUS). Central tests are used for diagnosis. They measure density in the hip or spine. The main centraltest is the dual energy x-ray absorptiometry (DXA). The DXA is the standard bone density test. Who Should Be Tested? All postmenopausal women under age 65, with one or more risk factors in addition to menopause. All women age 65 and older. Postmenopausal women with fractures. Women who are thinking about treatment for osteoporosis. Women who have been on hormone therapy for a long time. Men or women with certain medical conditions or who are taking certain medications (such as glucocorticoids or prednisone) for a long period. Common Testing Sites Any bone can fracture, but with osteoporosis some bones fracture more easily. These include bones in the spine, wrist, shoulder, and hip. Thats why bone density testing may be done at one or more of these sites. Understanding Your Results The results of your test may seem confusing at first. Dont be afraid to ask your provider to explain. Your bone mineral density (BMD) describes the thickness of the bone that was scanned. Your healthcare provider will compare your BMD with the BMD of young, healthy bone. The result is called a T-score. Bones remodel at different rates. So, a healthy T-score in the wrist doesnt mean the spine is also healthy. Thats why more than one site may be scanned. [id number] [address]. All rights reserved. This information is not intended as a substitute for professional medical care. Always follow your healthcare professional's instructions Mammography Mammography is an X-ray exam of your breast tissue. The image it makes is called a mammogram. A mammogram can help find problems with your breasts, such as cysts or cancer. Mammography is the best breast cancer screening tool available. Have screening mammograms and professional breast exams as often as your healthcare provider recommends. Also, be sure you know how your breasts normally look and feel. This makes it easier to noticeany changes. Report changes to your healthcare provider as soon as possible. How do I get ready for a mammogram? Schedule the test for 1 week after your period. Your breasts are less sore then. Make sure your clinic gets images of your last mammogram if it was done somewhere else. This lets the provider compare the 2 sets of images for any changes. On the morning of your test, dont use deodorant, powder, or perfume. Wear a top that you can take off easily. What happens during a mammogram? You will need to undress from the waist up. The technologist will position your breast to get the best test results. Each of your breasts will be compressed one at a time. This helps get the most complete X-ray image. Your breasts will be repositioned to get at least 2 separate views of each breast. What happens after a mammogram? More X-rays are sometimes needed. If not done at the time of your initial mammogram, youll be called to schedule them. You should receive your test results in writing. Ask about this on the day of your appointment. Have mammograms as often as your healthcare provider recommends. Let the technologist know if: Youre or think you may be You have breast implants You have any scars or moles on or near your breasts Youve had a breast biopsy or surgery Youre Date Last Reviewed: 05/01/201719995147-5047 [employer]. [address] [place] [address]. All rights reserved. This information is not intended as a substitute for professional medical care. Always follow your healthcare professional's instructions documented in this encounter Progress Notes * Magdalena Dumas MD - 06/14/2024 12:20 PM EDT Subjective Gretchen Munoz is a 58 year old female. Chief Complaint Patient presents with Acute Pt here today due to having stepped on a nail with her left foot HPI: Here for lt heel puncture wound , happened on Fri , stepped on a nail head, puncture , skin scraped Painful , although today is less painful Mild redness, swelling, blood discharge still Denies fever No known DM Last TD in 2019 Will give her another dose today PMH: Patient Active Problem List Diagnosis Multiple sclerosis [...] cut, crush or chew. 30 Capsule 5 Sulfamethoxazole-Trimethoprim 800-160 MG Oral Tablet (Bactrim DS) Take 1 Tablet by mouth in the morning and 1 Tablet before bedtime. Do all this for 10 days. Until gone.. 20 Tablet 0 No current facility-administered medications for this visit. 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 hyperplastic polyp, focal mucosal hyperplasia and inflammatory tissue, recommend f/u in 2 years Hx of hysterectomy 03/25/2014 Multiple sclerosis (HCC) STOMACH FUNCTION DIS - s/p gastric bypass 12/12/2008 Thyroid nodule 03/26/2021 Past Surgical History: Procedure Laterality Date ARTHOMELANIE,W/ROTATOR CUFF Left 10/2020 COLONOSCOPY W/ LESION REMOVAL, SNARE 04/06/2009 hyperplastic polyp, focal mucosal hyperplasia and inflammatory tissue, recommend f/u in 2 years COLONOSCOPY, DIAGNOSTIC (RECTUM) 04/22/2022 hyperplastic polyp, diverticulosis, repeat 5 yrs / COLONOSCOPY FLEXIBLE PROXIMAL DIAGNOSTIC performed by Rachelle Valdes DO at [facility] EGD, FLEXIBLE, DIAGNOSTIC 04/22/2022 normal / ESOPHAGOGASTRODUODENOSCOPY (EGD), FLEXIBLE, TRANSORAL, DIAGNOSTIC performed by Rachelle Valdes DO at [facility] EGD, FLEXIBLE, W/BIOPSY 04/06/2009 mild gastritis, continue PPI GASTRIC BYPASS FOR OBESITY 2004 TOTAL ABD HYSTERECTOMY W/WO REMOVAL OF TUBE(S) 12/01/1996 for endometriosis- also had BSO Review of patient's allergies indicates: Allergen Reactions Cephalosporins Hives and Itching Copaxone [Glatiramer Acetate] Chest tightness Family History Problem Relation Name Age of Onset Breast Cancer No significant family history Family Status Relation Status No history (Not Specified) Social History Socioeconomic History Marital status: Spouse name: Not on file Number of children: Not on file Years of education: Not on file Highest education level: Not on file Occupational History Not on file Tobacco Use Smoking status: Former Current packs/day: 0.00 Average packs/day: 0.6 packs/day for 34.0 years (20.4 ttl pk-yrs) Types: Cigarettes Start date: 06/10/1985 Quit date: 06/10/2019 Years since quittin.0 Passive exposure: Current Smokeless tobacco: Never Tobacco comments: She is a former smoker. Quit 2019. Smoked 1/2-3/4 ppd from age 19 until 53. Vaping Use Vaping status: Former Substance and Sexual Activity Alcohol use: No Comment: Occasional Drug use: No Sexual activity: Yes Partners: Male Other Topics Concern Not on file Social History Narrative Not on file Social Determinants of Health Financial Resource Strain: Not on file Food Insecurity: No Food Insecurity (01/23/2021) Hunger Vital Sign Worried About Running Out of Food in the Last Year: Never true Ran Out of Food in the Last Year: Never true Transportation Needs: Not on file Social Connections: Unknown (05/18/2024) Social Connections How often do you feel lonely or isolated from those around you? (Adult - for ages 18 years and over): Not on file Housing Stability: Not on file Review of Systems Constitutional: Positive for activity change (lt heel pain). Negative for appetite change, chills, diaphoresis, fatigue, fever and unexpected weight change. Respiratory: Negative. Cardiovascular: Negative. Musculoskeletal: Positive for gait problem and joint swelling. Skin: Positive for color change and wound (lt heel). Neurological: Negative for weakness and numbness. Psychiatric/Behavioral: Negative for agitation and behavioral problems. Objective BP 130/70 | Pulse 89 | Temp 37 C (98.6 F) (Tympanic) | Resp 18 | Wt 98.9 kg (218 lb) | SpO2 95%| BMI 40.52 kg/m | BSA 2.07 m Physical Exam Constitutional: General: She is not in acute distress. Appearance: Normal appearance. She is obese. She is not ill-appearing, toxic- appearing or diaphoretic. HENT: Head: Normocephalic and atraumatic. Nose: Nose normal. Eyes: Extraocular Movements: Extraocular movements intact. Musculoskeletal: General: Tenderness present. Right lower leg: No edema. Left lower leg: No edema. Skin: Findings: Erythema (lt heel , skin abrasion) and lesion present. Neurological: Mental Status: She is alert and oriented to person, place, and time. Psychiatric: Behavior: Behavior normal. ASSESSMENT/PLAN: Puncture wound of left heel, initial encounter (Primary) - XR HEEL 2 OR MORE VIEWS - TDAP (AGE 7 AND OLDER), ADACEL Vaccine for viral hepatitis Encounter for screening mammogram for malignant neoplasm of breast - MAMMOGRAM SCREENING ANKUSH BILATERAL; Future; Expected date: 06/14/2024 Need for prophylactic vaccination with tetanus-diphtheria (Td) - XR HEEL 2 OR MORE VIEWS Other orders - Sulfamethoxazole-Trimethoprim 800-160 MG Oral Tablet (Bactrim DS); Take 1 Tablet by mouth in the morning and 1 Tablet before bedtime. Do all this for 10 days. Until gone.. Bactrim Xray Tdap Magdalena Dumas MD * Miriam Kinsey LPN - 06/14/2024 11:57 AM EDT Dexa scan ordered today. Provider aware. Miriam Kinsey LPN Immunization Administration Documentation Time Out Procedure Performed: Yes Patient Identified (Ask Name/Date of ): Yes Does the patient have a fever greater than 101 degrees today? No Patient allergic to latex? No VFC Stock: No Immunization(s) verified: Yes, Immunization Name: Tdap (Adacel), VIS Sheet(s) given: Yes Verified Side and Site: Yes Verified Shot(s) with Parent(s)/Patient: Yes documented in this encounter Nursing Notes * Miriam Kinsey LPN - 06/14/2024 11:49 AM EDT Chief Complaint Patient presents with Acute Pt here today due to having stepped on a nail documented in this encounter Plan of Treatment Upcoming Encounters Date Type Department Care Team (Late st Contact Info) Description 06/28/2024 10:40 AM EDT Office Visit [facility] [address] [place] [id number] Tamia Nolasco MD [address] [place] [address] Scheduled Orders Name Type Priority Associated Diagnoses Orde r Schedule MAMMOGRAM SCREENING ANKUSH BILATERAL Medical Imaging Routine Encounter for screening mammogram for malignant neoplasm of breast Expected: 06/14/2024, Expires: 07/15/2025 XR HEEL 2 OR MORE VIEWS Medical Imaging Routine Puncture wound of left heel, initial encounter Need for prophylactic vaccination with tetanus-diphtheria (Td) Ordered: 06/14/2024 Scheduled Procedures Name Priority Associated Diagnoses Date/Ti [...] 03/29/2021 Depression Monitoring 04/13/2022 04/13/2021 COVID-19 Vaccine (2022- season) 2023 10/17/2021, 03/17/2021, 02/17/2021 Mammogram 12/26/2023 12/26/2022, 08/03/2011, 07/05/2011, Additional history exists Influenza Vaccine (FLU shot) (#1) 2024 11/04/2023, 10/21/2022, 09/11/2021, Additional history exists Diabetes Screening 09/30/2026 09/30/2023, 0 12/31/2022, 12/30/2022, Additional history exists Colonoscopy 04/22/2027 04/22/2022, 04/01, 04/06/2009 Colorectal Cancer Screening 04/22/2027 DTaP,Tdap,and Td Vaccines (4 - Td or Tdap) 06/14/2034 06/14/2024, 10/13/2020, 04/10/2009 VITAMIN D LEVEL ONCE IN A LIFETIME-USE SMARTSET# [id number] Completed 05/30/2011, 01/23/2011, 09/27/2010, Additional history exists [...] as of this encounter Visit Diagnoses Diagnosis Puncture wound of left heel, initial encounter- Primary Vaccine for viral hepatitis Need for prophylactic vaccination and inoculation against viral hepatitis Encounter for screening mammogram for malignant neoplasm of breast Other screening mammogram Need for prophylactic vaccination with tetanus-diphtheria (Td) documented in this encounter Advance Directives * Full Code (Latest Code Status on File) Date Activated Date Inactivated Comments 12/30/2022 11:38 AM 12/31/2022 6:19 PM This order reflects the patients wishes and were consensually agreed upon. Question Answer Comments Discussion of Advance Directives occurred with: Patient Care Teams Cash Reconciliation Specialist Relationship Specialty Start Date End Date Tamia Nolasco MD [address], [place] [phone] PCP - General Family Medicine 01/23/21 documented as of this encounter"
--- OUTSIDE RECORDS SUMMARY | 2024-07-04 21:13 | External Medical Summary ---
Author Name Unknown Address Unknown Organization [id number]:[facility] [place] - [address] [place] [address] Laboratory Report Ordering Provider Test Date Status PINEDA CONTRERAS 06/28/2024 11:05:53 Final Observation Date Value Abnormality Reference (Units ) Status BUN 06/28/2024 11:05:53 10 6-20 (mg/dL) Final Creatinine 06/28/2024 11:05:53 0.7 0.5-1.0 (mg/dL) Final Glomerular filtration rate/1.73 sq M.predicted [Volume Rate/Area] in Serum, Plasma or Blood by Creatinine-based formula (CKD-EPI) 06/28/2024 11:05:53 >90 >=60 (mL/min) Final eGFR is calculated based on the CKD-EPI 2020 equation. Sodium 06/28/2024 11:05:53 137 135-146 (m mol/L) Final Potassium 06/28/2024 11:05:53 4.7 3.5-5.1 (m mol/L) Final Cl 06/28/2024 11:05:53 103 98-107 (mm ol/L) Final CO2 06/28/2024 11:05:53 26 22-32 (mmo l/L) Final Anion gap 06/28/2024 11:05:53 8 7-15 (mmol /L) Final Glucose 06/28/2024 11:05:53 87 70-120 (mg /dL) Final Albumin 06/28/2024 11:05:53 4.3 3.8-5.0 (g /dL) Final AST (Aspartate aminotransferase) 06/28/2024 11:05:53 23 10-35 (U/L) Final Alk Phos 06/28/2024 11:05:53 106 35-130 (U/ L) Final Bilirubin, Total 06/28/2024 11:05:53 0.4 <=1 .2 (mg/dL) Final Calcium 06/28/2024 11:05:53 9.7 8.4-10.2 ( mg/dL) Final Protein 06/28/2024 11:05:53 6.5 6.0-8.3 (g /dL) Final ALT (Alanine aminotransferase) 06/28/2024 11:05:53 26 10-35 (U/L) Final Performing Location [facility] - [address] [facility] [address]
--- OUTSIDE RECORDS SUMMARY | 2024-07-04 21:13 | External Medical Summary ---
Author Name Unknown Address Unknown Organization [id number]:[facility] [place] - [address] [place] [address] Laboratory Report Ordering Provider Test Date Status PINEDA CONTRERAS 06/28/2024 11:05:53 Final Observation Date Value Abnormality Reference (Units ) Status TSH 06/28/2024 11:05:53 2.05 0.27-4.20 (uIU/mL) Final Performing Location [facility] - [address] [place] [address]
--- OUTSIDE RECORDS SUMMARY | 2024-07-04 21:13 | External Medical Summary ---
Author Name Unknown Address Unknown Organization [id number]:[facility] [address] [place] [address] Laboratory Report Ordering Provider Test Date Status PINEDA CONTRERAS 06/28/2024 11:05:53 Final Observation Date Value Abnormality Reference (Units ) Status Hep C Ab 06/28/2024 11:05:53 Negative Negative Final Further HCV quantitative johanna ting not performed per protocol. Performing Location [facility] - [address] [place] [address]
--- OUTSIDE RECORDS SUMMARY | 2024-07-04 21:13 | External Medical Summary | Summary of Care ---
Author Name Unknown Organization [facility] Address [address] [facility] [place] [address] Phone [phone] Care Team Providers Care Anthropology Faculty Member Name Role Phone Tamia Nolasco MD Primary Care Provid er Reason for Visit * Reason Comments Outpatient Testing Encounter Details Date Type Department Care Team (Late st Contact Info) Description 06/28/2024 11:10 AM EDT Laboratory Laboratory, [place] [address] [place] [address] [place], Laboratory [address] [place] [address] [employer] Other*[id number]; Encounter for long-term (current) use of medications; Screening for lipid disorders; Screening for HIV without presence of risk factors; Encounter for hepatitis C screening test for low risk patient; Pain of both shoulder joints Allergies Active Allergy Reactions Criticality Noted Date Comments Cephalosporins Hives,Itching Medium 03/08/2003 Glatiramer Acetate 12/18/2021 Chest tightness documented as of this encounter (statuses as of 06/28/2024) Medications Medication Sig Dispensed Refills Start Date End Date Status rOPINIRole (REQUIP) 0.25 MG Tablet Take 1 Tablet by mouth at bedtime as needed (restless legs). Active Fluticasone Propionate 50 MCG/ACT Nasal Suspension (Flonase)Indicatio ns:Acute non-recurrent maxillary sinusitis Administer into each nostril 2 Sprays in the morning. 48 mL 3 02/19/2022 Active Additional Information Patient taking differently:2 [place] Each NostrilDAILY PRN, Allergies, Congestion, Informant: Patient, [...] Take 1 Capsule by mouth in the morning and 1 Capsule before bedtime. Do not cut, crush or chew. 60 Capsule 5 06/28/2024 Active documented as of this encounter (statuses as of 06/28/2024) Active Problems Problem Noted Date Diagnosed Date [...] as of this encounter (statuses as of 06/28/2024) Resolved Problems Problem Noted Date Diagnosed Date [...] as of this encounter (statuses as of 06/28/2024) Immunizations Name Administration Dates Next Due COVID-19 mRNA, LNP-s, No Pre serve, 2-Dose Series ([employer]) 10/17/2021,03/17/2021,02/17/2021 Seasonal Influenza, PF, 6 M & [...] on file documented as of this encounter Plan of Treatment Upcoming Encounters Date Type Department Care Team (Late st Contact Info) Description 10/01/2024 11:40 AM EDT Office Visit [facility] [address] [place] [address] Tamia Nolasco MD [address], [place] [id number] Pending Results Name Type Priority Associated Diagnoses Date /Time MYCODE SUBSEQUENT ADULT Lab Routine MyCode [employer] Other*[id number] 06/28/2024 11:05 AM EDT COMPREHENSIVE METABOLIC PANEL Lab Routine Encounter for long-term (current) use of medications 06/28/2024 11:05 AM EDT TSH WITH FREE T4 IF INDICATED Lab Routine Encounter for long-term (current) use of medications 06/28/2024 11:05 AM EDT VITAMIN B12 Lab Routine Encounter for long-term (current) use of medications 06/28/2024 11:05 AM EDT 25-HYDROXY VITAMIN D Lab Routine Encounter for long-term (current) use of medications 06/28/2024 11:05 AM EDT LIPID PANEL WITH DIRECT LDL IF TG IS HIGH Lab Routine Screening for lipid disorders 06/28/2024 11:05 AM EDT HIV ANTIGEN & ANTIBODY SCREEN W/ CONFIRMATION Lab Routine Screening for HIV without presence of risk factors 06/28/2024 11:05 AM EDT HEPATITIS C ANTIBODY SCREEN WITH PROGRESSION TO HEPATITIS C RNA QUANTITATIVE Lab Routine Encounter for hepatitis C screening test for low risk patient 06/28/2024 11:05 AM EDT ERYTHROCYTE SEDIMENTATION RATE (ESR) Lab Routine Pain of both shoulder joints 06/28/2024 11:05 AM EDT MYCODE SST1 Lab Routine [employer] Other*[id number] 06/28/2024 11:05 AM EDT MYCODE SST2 Lab Routine [employer] Other*[id number] 06/28/2024 11:05 AM EDT HEPATITIS C ANTIBODY Lab Routine Encounter for hepatitis C screening test for low risk patient 06/28/2024 11:05 AM EDT HEPATITIS C RNA ADD ON Lab Routine Encounter for hepatitis C screening test for low risk patient 06/28/2024 11:05 AM EDT Scheduled Procedures Name Priority Associated Diagnoses Date/Ti [...] D LEVEL ONCE IN A LIFETIME-USE SMARTSET# [id number] Completed 05/30/2011, 01/23/2011, 09/27/2010, Additional history exists [...] as of this encounter Visit Diagnoses Diagnosis [employer] Other*[id number] Encounter for long-term (current) use of medications Encounter for long-term (current) use of other medications Screening for lipid disorders Screening for HIV without presence of risk factors Special screening examination for other specified viral diseases Encounter for hepatitis C screening test for low risk patient Pain of both shoulder joints documented in this encounter Advance Directives * Full Code (Latest Code Status on File) Date Activated Date Inactivated Comments 12/30/2022 11:38 AM 12/31/2022 6:19 PM This order reflects the patients wishes and were consensually agreed upon. Question Answer Comments Discussion of Advance Directives occurred with: Patient Care Teams Anthropology Faculty Member Relationship Specialty Start Date End Date Tamia Nolasco MD [address] [place] [address] PCP - General Family Medicine 01/23/21 documented as of this encounter
--- OUTSIDE RECORDS SUMMARY | 2024-07-04 21:13 | External Medical Summary | Summary of Care ---
Author Name Unknown Organization [facility] Address [address] [facility] [place] [address] Phone [phone] Care Team Providers Care Gem Carver Name Role Phone Tamia Nolasco MD Primary Care Provid er Encounter Details Date Type Department Care Team (Late st Contact Info) Description 06/01/2024 Orders Only PATIENT PORTAL DO NOT DELETE THIS DEPT USED BY [place] [id number] Allergies Active Allergy Reactions Criticality Noted Date Comments Cephalosporins Hives,Itching Medium 03/08/2003 Glatiramer Acetate 12/18/2021 Chest tightness documented as of this encounter (statuses as of 06/01/2024) Medications Medication Sig Dispensed Refills Start Date End Date Status rOPINIRole (REQUIP) 0.25 MG Tablet Take 1 Tablet by mouth at bedtime as needed (restless legs). Active Fluticasone Propionate 50 MCG/ACT Nasal Suspension (Flonase)Indicatio ns:Acute non-recurrent maxillary sinusitis Administer into each nostril 2 Sprays in the morning. 48 mL 3 02/19/2022 Active Additional Information Patient taking differently:2 [place] Each NostrilDAILY PRN, Allergies, Congestion, Informant: Patient, [...] or chew. 30 Capsule 5 05/28/2024 Active FLUoxetine HCl 10 MG Oral Capsule (PROzac)Indication s:Anxiety Take daily for 10 days then stop. 10 Capsule 05/28/2024 Active documented as of this encounter (statuses as of 06/01/2024) Active Problems Problem Noted Date Diagnosed Date [...] as of this encounter (statuses as of 06/01/2024) Resolved Problems Problem Noted Date Diagnosed Date [...] as of this encounter (statuses as of 06/01/2024) Immunizations Name Administration Dates Next Due COVID-19 mRNA, LNP-s, No Pre serve, 2-Dose Series ([employer]) 10/17/2021,03/17/2021,02/17/2021 Seasonal Influenza, PF, 6 M & [...] Description 06/28/2024 10:40 AM EDT Office Visit [facility] [address] [place] [id number] Tamia Nolasco MD [address] [place] [address] Scheduled Procedures Name Priority Associated [...] D LEVEL ONCE IN A LIFETIME-USE SMARTSET# [id number] Completed 05/30/2011, 01/23/2011, 09/27/2010, Additional history exists RETIRED - COLONOSCOPY-EVERY 2 YRS AGES 18-100 Discontinued 04/22/2022, 04/22/2022, 04/06/2009 RETIRED - COLONOSCOPY-EVERY 5 YRS AGES 18-100 Discontinued 04/22/2022, 04/22/2022, 04/06/2009 Lung Cancer Screening Completed 12/26/2022 , 10/08/2021, 07/05/2021, Additional history exists GARDASIL-HPV IMMUNIZATION SERIES Aged [...] Advance Directives occurred with: Patient Care Teams Gem Carver Relationship Specialty Start Date End Date Tamia Nolasco MD [address] [place] [facility] [place] [address] PCP - General Family Medicine 01/23/21 documented as of this encounter
--- OUTSIDE RECORDS SUMMARY | 2024-07-04 21:13 | External Medical Summary | Summary of Care ---
Author Name Unknown Organization [facility] Address [address] [facility] [place] [address] Phone [phone] Care Team Providers Care Planer Offbearer Name Role Phone Tamia Nolasco MD Primary Care Provid er Reason for Visit * Reason Comments Physical-Exam Would like to talk a bout the pain she has in her neck, shoulders and chest when she lays down Concerned about an anyuresum Encounter Details Date Type Department Care Team (Late st Contact Info) Description 06/28/2024 10:40 AM EDT Office Visit [place] [address] [place] [address] Tamia Nolasco MD [address] [place] [address] Pain of both shoulder joints*; Anxiety; Other chronic pain Allergies Active Allergy [...] 02/19/2022 Active Additional Information Patient taking differently:2 [place] Each NostrilDAILY PRN, Allergies, Congestion, Informant: Patient, [...] or chew. 60 Capsule 5 06/28/2024 Active DULoxetine HCl 30 MG Oral Capsule Delayed Release Particles (Cymbalta)Indicat ions:Anxiety,Othe r chronic pain Take 1 Capsule by mouth in the morning. Do not cut, crush or chew. 30 Capsule 5 05/28/2024 Discontinue d(Refill) documented as of this encounter (statuses as [...] mRNA, LNP-s, No Pre serve, 2-Dose Series ([employer]) 10/17/2021,03/17/2021,02/17/2021 Seasonal Influenza, PF, 6 M & [...] Sign Reading Time Taken Comments Blood Pressure 128/68 06/28/2024 10:30 AM EDT Pulse 86 06/28/2024 10:30 AM EDT Temperature 36.9 C (98.4 F) 06/28/2024 10:30 AM E DT Respiratory Rate 17 06/28/2024 10:30 AM EDT Oxygen Saturation 96% 06/28/2024 10:30 AM EDT Inhaled Oxygen Concentration - - Weight 98.7 kg (217 lb 9.6 oz) 06/28/2024 10:30 AM EDT Height 156.2 cm (5' 1.5") 06/28/2024 10:30 AM ED T Body Mass Index 40.45 06/28/2024 10:30 AM EDT documented in this encounter Progress Notes * Tamia Nolasco MD - 06/28/2024 10:42 AM EDT ASSESSMENT / PLAN: Gretchen Munoz is a 58 year old female with PMHx pulm nodule / aortic ectasia / MS / iron def anemia s/p gastric bypass - here for acute Anxiety / chronic pain Not well controlled but improving since switching to duloxetine - recommend INCR to 30mg BID Vistaril prn Bilateral shoulder pain R/o PMR Follow Up: Return in about 3 months (around 09/28/2024), or if symptoms worsen or fail to improve, for Labs Today. | For: Labs Today Pain of both shoulder joints (Primary) - ERYTHROCYTE SEDIMENTATION RATE (ESR); Future; Expected date: 06/28/2024 Anxiety - DULoxetine HCl 30 MG Oral Capsule Delayed Release Particles (Cymbalta); Take 1 Capsule by mouth in the morning and 1 Capsule before bedtime. Do not cut, crush or chew. Other chronic pain - DULoxetine HCl 30 MG Oral Capsule Delayed Release Particles (Cymbalta); Take 1 Capsule by mouth in the morning and 1 Capsule before bedtime. Do not cut, crush or chew. Follow Up: Return in about 3 months (around 09/28/2024), or if symptoms worsen or fail to improve, for Labs Today. | For: Labs Today If needed, prefers contact by: Ok to leave message on phone: SUBJECTIVE: Nursing Notes: Jacqueline Floyd LPN 06/28/24 1040 Signed The patient has been properly identified by confirmation of name and date of . Chief Complaint Patient presents with Physical-Exam Would like to talk about the pain she has in her neck, shoulders and chest when she lays down Concerned about an anyuresum HPI: Gretchen Munoz is a 58 year old female. Here for recheck. Endorses chronic bilateral shoulder pain and weakness She doesn't think this is an aneurysm but wonders some times She does not endorse any chest pain or new difficulty breathing or blood pressure variations Is taking duloxetine as prescribed - switching from fluoxetine did cause tearfulness but that has resolved Reviewed sources 1- Patient Active Problem List Diagnosis Multiple sclerosis [...] cut, crush or chew. 60 Capsule 5 No current facility-administered medications for this visit. OBJECTIVE: BP 128/68 | Pulse 86 | Temp 36.9 C (98.4 F) | Resp 17 | Ht 1.562 m (5' 1.5") | Wt 98.7 kg (217 lb 9.6 oz) | SpO2 96% | BMI 40.45 kg/m | BSA 2.07 m Vitals reviewed and is normotensive / afebrile / and not tachycardic General: No acute distress. Neuro: Alert Pleasant & interactive. Respiratory: Good inspiratory effort, no labored breathing. HEENT: Conjunctivae appear clear. No swelling noted face or lips. Skin: No rash visible on exposed skin areas, normal coloration & appears dry. Psych: Normal affect. Fluent speech. Tamia Nolasco MD [address] [phone] There are no Patient Instructions on file for this visit. documented in this encounter Nursing Notes * Jacqueline Floyd LPN - 06/28/2024 10:39 AM EDT The patient has been properly identified by confirmation of name and date of . Chief Complaint Patient presents with Physical-Exam Would like to talk about the pain she has in her neck, shoulders and chest when she lays down Concerned about an anyuresum documented in this encounter Plan of Treatment Upcoming Encounters Date Type Department Care Team (Late st Contact Info) Description 10/01/2024 11:40 AM EDT Office Visit [facility] [address] [place] [address] Tamia Nolasco MD [address] [place] [address] Pending Results Name Type Priority Associated Diagnoses Date /Time ERYTHROCYTE SEDIMENTATION RATE (ESR) Lab Routine Pain of both shoulder joints 06/28/2024 11:05 AM EDT Scheduled Orders Name Type Priority Associated Diagnoses Orde r Schedule ERYTHROCYTE SEDIMENTATION RATE (ESR) Lab Routine Pain of both shoulder joints Expected: 06/28/2024 (Approximate), Expires: 06/28/2025 Scheduled Procedures Name Priority Associated Diagnoses Date/Ti [...] D LEVEL ONCE IN A LIFETIME-USE SMARTSET# [id number] Completed 05/30/2011, 01/23/2011, 09/27/2010, Additional history exists [...] as of this encounter Visit Diagnoses Diagnosis Pain of both shoulder joints- Primary Anxiety Anxiety state, unspecified Other chronic pain documented in this encounter Advance Directives * Full Code (Latest Code Status on File) Date Activated Date Inactivated Comments 12/30/2022 11:38 AM 12/31/2022 6:19 PM This order reflects the patients wishes and were consensually agreed upon. Question Answer Comments Discussion of Advance Directives occurred with: Patient Care Teams Planer Offbearer Relationship Specialty Start Date End Date Tamia Nolasco MD [address] [place] [address] PCP - General Family Medicine 01/23/21 documented as of this encounter
--- OUTSIDE RECORDS SUMMARY | 2024-07-04 21:13 | External Medical Summary ---
Author Name Unknown Address Unknown Organization K[facility] [address] [facility] [place] [address] Laboratory Report Ordering Provider Test Date Status DIANEANASTASIIA ALEXANDERO 06/28/2024 11:05:53 Final Observation Date Value Abnormality Reference (Units ) Status Triglyceride 06/28/2024 11:05:53 183 Above high normal <=174 (mg/dL) Final Triglyceride Reference Range s (mg/dL):
<150 Acceptable
150-174 Borderline high
175-499 High
>=500 Very high Cholesterol 06/28/2024 11:05:53 188 <200 (mg /dL) Final Total Cholesterol Reference Ranges (mg/dL):
<200 Desirable
200-239 Borderline high
>=240 High HDL 06/28/2024 11:05:53 40 Below low normal >49 (mg/dL) Final HDL Cholesterol Reference Ra nges (mg/dL):
>=60 High (Desirable)
<50 Low (Undesirable) For Females
<40 Low (Undesirable) For Males NON-HDL CHOLESTEROL 06/28/2024 11:05:53 148 <=159 (mg/dL) Final Non-HDL Cholesterol Referenc e Range (mg/dL):
<100 Target level for high risk ASCVD patient
<130 Optimal for general population
130-159 Near optimal for general population
160-189 Borderline High
190-219 High
>=220 Very High LDL, (calculated) 06/28/2024 11:05:53 111 <= 129 (mg/dL) Final LDL Cholesterol Reference Ra nges (mg/dL):
<70 Target level for high risk ASCVD patient
<100 Optimal for general population
100-129 Near optimal for general population
130-159 Borderline high
160-189 High
>=190 Very high Performing [place] [facility] [place] [address] [facility] [place] [address]
--- OUTSIDE RECORDS SUMMARY | 2024-07-04 21:13 | External Medical Summary | Continuity of Care Document ---
Author Name Unknown Organization [place] [id number] Address [address] [place] [phone] Care Team Providers Care Hand Packer/Packager Name Role Phone Tamia Nolasco Primary Care Physician [phone] Encounter [facility] [id number] Date(s): 05/19/24 - 05/19/[address] [facility] [address] [place] [id number] [address] Encounter Diagnosis Lumbar radiculopathy(Discharge Diagnosis) - 05/19/24 Discharge Disposition: Home or Self Care Attending Physician: MD Juan Miguel, Martinez Espinoza Allergies, Adverse Reactions, Alerts Substance Criticality Severity Reaction Reaction Severity Status Keflex Rash Active Glatiramer Acetate Unknown A ctive Medications FLUoxetine 20 mg oral capsule Start: 06/22/21 1:37:00 PM EDT, 1 cap, PO, Daily Start Date: 06/22/21 Status: Ordered ibuprofen 200 mg oral capsule Start: 05/17/24 2:25:00 PM EDT, 2 cap, PO, q6h, PRN: as needed for pain Start Date: 05/17/24 Status: Ordered lisinopril 5 mg oral tablet Start: 06/22/21 1:36:00 PM EDT, 1 tab, PO, Daily Start Date: 06/22/21 Status: Ordered oxybutynin 10 mg/24 hr oral tablet, extended release Start: 09/09/19 1:01:00 PM EDT, 1 tab, PO, Daily, PRN Start Date: 09/09/19 Status: Ordered pantoprazole 40 mg oral delayed release tablet Start: 11/14/23 1:13:00 PM EST, 90 each, TAKE 1 TABLET BY MOUTH EVERY DAY Start Date: 11/14/23 Status: Ordered rOPINIRole 0.25 mg oral tablet Start: 09/09/19 1:01:00 PM EDT, 1 tab, PO, qhs Start Date: 09/09/19 Status: Ordered traZODone 50 mg oral tablet Start: 02/02/21 9:51:00 AM EST, 1 tab, PO, bid, PRN Start Date: 02/02/21 Status: Ordered triamcinolone topical 0.1% cream Start: 11/16/13 10:53:00 AM EST, 1 appl, topical, bid, Disp# 454 g, Refills: 3, use moist cool compress after applying, Pharmacy: [facility] Start Date: 11/16/13 Status: Ordered Vitamin B12 1000 mcg/mL injectable solution Start: 03/04/23 12:41:00 PM EDT, 1,000 mcg =, IM, every 2 months Start Date: 03/04/23 Status: Ordered Vitamin D3 50,000 intl units (1250 mcg) oral capsule TAKE 1 BY MOUTH PER WEEK Start Date: 06/06/22 Status: Ordered Mental Status 05/19/24 Barriers to Learning one year None evide nt Mandatory Health Literacy Documentation Yes Health Literacy Communication Barriers N ever Primary Language Filipino Problem List Condition Confirmation Course Effective Dates [...] Effective Dates Health Status Clinical Service Informant Lumbar radiculopathy Discharge Diagnosis 05/19/24 Procedures Procedure Date Related Diagnosis Body Site [...] nonspecific nodular thickening of the rectus sheath. 7MN ER black stools for 4 days, epigastric [...] bx at 35 cm mild chronic cardiitis. [id number] per pt 19EGD-2009 2010 YRS ago 20Childhood [id number] Vital Signs Most recent to oldest [Reference Range]: 1 Heart Rate 89 bpm (05/19/24 7:51 AM) Blood Pressure 120/80mmHg (05/19/24 7:51 AM) Social History Social History Type Response Smoking Status Never smoked cigaret johanna Sex Female Ortho Outpt Note * MD Juan Miguel, Martinez Espinoza: PERFORM Event Display: Ortho Outpt Note Authored Date: [id number] Name:TATE OSBORNE Patient Number:[id number] :1965 Date of Service:05/19/2024 Preoperative diagnosis:Lumbar disc disease with left lower extremity radiculopathy Postoperative diagnosis: Same Procedure: Left paramedian L5-S1 interlaminar epidural steroid injection under fluoroscopic guidance Indications: Patient is [id number] female who had a epidural with 100% relief6 months ago she presents today for another injection provided with relief. Physical examination:Pleasant female seated comfortably she is without any focal motor or sensory deficits negative seated straight leg raises Consent: Verbal consent was obtained from the patient. Prior to the procedure a timeout was done for safety to confirm patient's full name and date of injection type location and approach. Procedure: Patient was maintained in a prone position backside was cleansed with Betadine x 3, fluoroscope was used to identify the L5-S1 interlaminar space. The overlying skin on the left side was anesthetized with 4 mL of lidocaine 1% with a 25-gauge 1-1/2 inch needle. 22-gauge 4-1/4 inch Tuohy needle was then directed down towards the interlaminar space was advanced under lateral fluoroscopic guidance and loss of resistance was noted at a depth of 10- 1/2cm. Omnipaque 300 contrast half milliliter was injected and which demonstrated an epidural uptake pattern they then underwent injection after negative aspiration of 40 mg Depo-Medrol and 4 mL of preservative-free sodium chloride. Injection was tolerated. Images from the procedure were saved and downloaded to PACS. Disposition: Patient will be discharged home once discharge criteria have been met Electronic Signature on File CC: Tamia Nolasco MD [place] [id number] * Electronically Reviewed/Signed by: Martinez Bullard MD Author Signature Dt/Tm:05/19/2024 08:27 AM Retail Business Manager of Orthopaedics & Rehabilitation and Physical Medicine & Rehabilitation [facility] .Outpt Proc * RADHA Lyons, Rachelle Pond: PERFORM Event Display: .Outpt Proc Authored Date: [id number] OUTPATIENT PROCEDURE Name: TATE OSBORNE Patient Number: [id number] : 1965 Date of Service: 05/19/2024 OUTPATIENT PROCEDURE NOTE Is patient no Procedure performedLeftLumbar Epidural Steroid Injection [id number] byDr. Martinez Bullard MD Resuscitation equipment checkedyes Anticoagulants stoppedyes - Aleve/Ibuprofen - last dose 05/15 Patient has a driveryes xray guidance usedyesConscious sedationnoTime out completedyes consent signedyes Allergies checkedyesGlatiramer Acetate; Keflex Diabeticno PositionPronePre procedure pain level _5__/10 Skin PrepBetadineSterile drapes usedyes Skin Local Anesthetic: Needle ___25__ga __1.5___in Lidocaile __1__%__4___ml Other HR: 89 SpO2: 95% BP: 120/80 Block Needle _22_GA_4.25_InchesType - Tuoghy needle Procedure medication used Cortical Steroids _40__mg MethylprednisoloneLocal Anesthetic % ml _- NSS 4ml TimeDrug/Event/RemarkBPHRSPO2 Comments 0821 - 0.5ml Omnipaque 0822 - Procedure complete 114/81 74 97% Status:Pain on discharge _0__/10ComplicationsNo Neurologically stableYes DispositionDischarged Home with aftercare instructions given Follow up prn Electronic Signature on File Electronically Reviewed/Signed by: Rachelle Lyons Author Signature Dt/Tm:05/19/2024 08:30 AM Electronically Reviewed/Signed by: Martinez Bullard MD Cosigner Signature Dt/Tm: 05/19/2024 02:30 PM Retail Business Manager of Orthopaedics & Rehabilitation and Physical Medicine & Rehabilitation [facility] Patient Care team information Care Team Personnel Name: MD Gaurav, Tamia Villalba Position: Referring Member Role: Primary Care Provider Address: Address: [address] Name: Dunia Valle Position: HIS Supervisor_P Member Role: HIS Lifetime Care Team Related Persons Name: MURPHY OSBORNE JR Name: MURPHY OSBORNE SR Address: [place] [address] [place] [phone] Name: CONNIE OSBORNE Address: home [address] [place] [phone] Name: MURPHY OSBORNE Address: UNKNOWN Address: [place] [address] [place] [phone]
--- OUTSIDE RECORDS SUMMARY | 2024-07-04 21:13 | External Medical Summary | Summary of Care ---
Author Name Unknown Organization [facility] Address [address] [place] [facility] [place] [place] [address] Phone [phone] Care Team Providers Care Cdl Program Coordinator Name Role Phone Diane Nolasco MD Primary Care Provid er Reason for Visit * Reason Comments eRx-Medication Refill Encounter Details Date Type Department Care Team (Late st Contact Info) Description 01/22/2024 Refill [facility] [address] [place] [address] Diane Nolasco MD [address] [place] [address] Aortic ectasia (HCC); HTN, goal below 130/80 Allergies Active Allergy Reactions Criticality Noted Date Comments Cephalosporins Hives,Itching Medium 03/08/2003 Glatiramer Acetate 12/18/2021 Chest tightness documented as of this encounter (statuses as of 01/31/2024) Medications Medication Sig Dispensed Refills Start Date End Date Status rOPINIRole (REQUIP) 0.25 MG Tablet Take 1 Tablet by mouth at bedtime as needed (restless legs). 0 Active Fluticasone Propionate 50 MCG/ACT Nasal Suspension (Flonase)Indicat ions:Acute non-recurrent maxillary sinusitis Administer into each nostril 2 Sprays in the morning. 48 mL 3 02/19/2022 Active Additional Information Patient taking differently:2 [place] Each NostrilDAILY PRN, Allergies, Congestion, Informant: Patient, [...] 09/29/2023 Active Lisinopril 5 MG Oral Tablet (Prinivil)Indica tions:Aortic ectasia (HCC),HTN, goal below 130/80 TAKE 1 TABLET BY MOUTH EVERYDAY AT BEDTIME 90 Tablet 0 01/22/2024 Active Lisinopril 5 MG Oral Tablet (Prinivil)Indica tions:Aortic ectasia (HCC),HTN, goal below 130/80 TAKE 1 TABLET BY MOUTH EVERYDAY AT BEDTIME 90 Tablet 2 02/17/2023 01/22/20 24 Discontinued FLUoxetine HCl 20 MG Oral Capsule (PROzac)Indicati ons:Anxiety with depression TAKE 1 CAPSULE BY MOUTH EVERY DAY 90 Capsule 1 06/01/2023 01/22/20 24 Discontinued documented as of this encounter (statuses as of 01/31/2024) Active Problems Problem Noted Date Diagnosed Date [...] as of this encounter (statuses as of 01/31/2024) Resolved Problems Problem Noted Date Diagnosed Date [...] as of this encounter (statuses as of 01/31/2024) Immunizations Name Administration Dates Next Due COVID-19 mRNA, LNP-s, No Pre serve, 2-Dose Series ([employer]) 10/17/2021,03/17/2021,02/17/2021 Seasonal Influenza, PF, 6 M & above, IM , (FluLaval or Fluzone) 11/04/2023,10/21/2022,09/11/2021,2019,12/16/2018 TD, Preservative Free 10/13/2020 TDAP (age 11 and older)(Adacel) 04/10/2009 documented as of this encounter Social [...] encounter Miscellaneous Notes * Telephone Encounter - Megha Vargas - 01/31/2024 12:49 AM EST Received message from [facility] regarding patient needing appointment. Patient was notified. Successfully contacted patient and provided [facility] message. * Telephone Encounter - Radha Rodriguez RP - 01/22/2024 11:41 AM ESTSigned Prescriptions: Disp Refills Lisinopril 5 MG Oral Tablet (Prinivil) 90 Tab*0 Sig: TAKE 1 TABLET BY MOUTH EVERYDAY AT BEDTIME Authorizing Provider: DIANE NOLASCO Ordering User: RADHA RODRIGUEZ * Telephone Encounter - Radha Rodriguez RP - 01/22/2024 11:40 AM EST Please contact patient so that an appointment can be scheduled with her PRIMARY CARE provider. Refill authorized to hold patient over in the mean time. Last Visit: 01/21/2023 (in office), 08/14/2021 (telemedicine) Next Visit: Visit date not found Radha Bueno, PharmD Clinical Pharmacist [facility] ([facility]) [phone] 01/22/2024 11:41 AM documented in this encounter Plan of Treatment Scheduled Procedures Name Priority Associated Diagnoses Date/Ti me COLONOSCOPY FLEXIBLE PROXIMAL DIAGNOSTIC Recall History of colon polyps Health Maintenance Due Date Last Done Comments Lipid Panel 1964 HIV Screening 1979 Hepatitis C Screening 1982 Hepatitis B (1 of 3 - 19+ 3-dose series) 1983 DXA Scan 2014 Zoster Vaccines (1 of 2) 2014 *BISPHONATE OR OTHER ACCEPTABLE MEDICATION NEEDED FOR OSTEOPOROSIS (REFER TO SMARTSET #1146) 03/29/2021 Depression Screening 04/13/2022 04/13/2021 COVID-19 Vaccine ( season) 2023 10/17/2021, 03/17/2021, 02/17/2021 Mammogram 12/26/2023 12/26/2022, 0803/2011, 07/05/2011, Additional history exists Diabetes Screening 09/30/2026 09/30/2023, 0 12/31/2022, 12/30/2022, Additional history exists COLONOSCOPY-EVERY 5 YRS AGES 18-100 04/22/2027 04/22/2022, 04/22/2022, 04/06/2009 DTaP,Tdap,and Td Vaccines (3 - Td or Tdap) 10/13/2030 10/13/2020, 04/10/2009 VITAMIN D LEVEL ONCE IN A LIFETIME-USE SMARTSET# [id number] Completed 05/30/2011, 01/23/2011, 09/27/2010, Additional history exists COLONOSCOPY-EVERY 2 YRS AGES 18-100 Discontinued 04/22/2022, 04/22/2022, 04/06/2009 LUNG CANCER SCREENING - USE SMARTSET 37653 Completed 12/26/2022, 10/08/2021, 07/05/2021, Additional history exists Influenza Vaccine [...] as of this encounter Visit Diagnoses Diagnosis Aortic ectasia (HCC) Aortic ectasia, unspecified site HTN, goal below 130/80 Unspecified essential hypertension documented in this encounter Advance Directives Latest Code Status on File Code Status Date Activated Date Inactivated Comments Full Code 12/30/2022 11:38 AM 12/31/2022 6:19 PM This order reflects the patients wishes and were consensually agreed upon. Question Answer Comments Discussion of Advance Directives occurred with: Patient Care Teams Cdl Program Coordinator Relationship Specialty Start Date End Date Diane Nolasco MD [address] [facility] [place] [id number] PCP - General Family Medicine 01/23/21 documented as of this encounter
--- OUTSIDE RECORDS SUMMARY | 2024-07-04 21:13 | External Medical Summary ---
Author Name Unknown Address Unknown Organization K01:[facility] [place] - [address] [place] [id number] Laboratory Report Ordering Provider Test Date Status PINEDA CONTRERAS 06/28/2024 11:05:53 Final Observation Date Value Abnormality Reference (Units ) Status Vitamin B12 06/28/2024 11:05:53 [phone] (pg/mL) Final Performing Location [facility] [place] - [address] [place] [address]
--- OUTSIDE RECORDS SUMMARY | 2024-07-04 21:13 | External Medical Summary ---
Author Name Unknown Address Unknown Organization K01:[facility] [address] [place] [address] Laboratory Report Ordering Provider Test Date Status PINEDA CONTRERAS 06/28/2024 11:05:53 Final Deficient: <20 ng/mL
Ins ufficient: 20-29 ng/mL
Recommended/Optimum:30-50 ng/mL

Vitamin D intoxication is rare. If suspicious of Vitamin D toxicity, evaluation of serum Calcium and PTH is recommended. Observation Date Value Abnormality Reference (Units ) Status 25-OH Vitamin D total 06/28/2024 11:05:53 24 >19 (ng/mL) Final Performing Location [facility] - [address] [place] [address]
--- OUTSIDE RECORDS SUMMARY | 2024-07-04 21:14 | External Medical Summary | Summary of Care ---
Author Name Unknown Organization [facility] Address [address] [facility] [place] [address] Phone [phone] Care Team Providers Care Distributor Of Directories Name Role Phone Diane Nolasco MD Primary Care Provid er Reason for Visit * Reason Comments eRx-Medication Refill Encounter Details Date Type Department Care Team (Late st Contact Info) Description 01/22/2024 Refill [facility] [address] [place] [address] Timi Villeda MD [address] [place] [address] Anxiety with depression Allergies Active Allergy Reactions Criticality Noted Date Comments Cephalosporins Hives,Itching Medium 03/08/2003 Glatiramer Acetate 12/18/2021 Chest tightness documented as of this encounter (statuses as of 01/22/2024) Medications Medication Sig Dispensed Refills Start Date End Date Status rOPINIRole (REQUIP) 0.25 MG Tablet Take 1 Tablet by mouth at bedtime as needed (restless legs). 0 Active Fluticasone Propionate 50 MCG/ACT Nasal Suspension (Flonase)Indicat ions:Acute non-recurrent maxillary sinusitis Administer into each nostril 2 Sprays in the morning. 48 mL 3 02/19/2022 Active Additional Information Patient taking differently:2 [place] Each NostrilDAILY PRN, Allergies, Congestion, Informant: Patient, [...] AT BEDTIME 90 Tablet 0 01/22/2024 Active FLUoxetine HCl 20 MG Oral Capsule (PROzac)Indicati ons:Anxiety with depression TAKE 1 CAPSULE BY MOUTH EVERY DAY 90 Capsule 0 01/22/2024 Active FLUoxetine HCl 20 MG Oral Capsule (PROzac)Indicati ons:Anxiety with depression TAKE 1 CAPSULE BY MOUTH EVERY DAY 90 Capsule 1 06/01/2023 01/22/20 24 Discontinued documented as of this encounter (statuses as of 01/22/2024) Active Problems Problem Noted Date Diagnosed Date [...] as of this encounter (statuses as of 01/22/2024) Resolved Problems Problem Noted Date Diagnosed Date [...] as of this encounter (statuses as of 01/22/2024) Immunizations Name Administration Dates Next Due COVID-19 mRNA, LNP-s, No Pre serve, 2-Dose Series ([employer]) 10/17/2021,03/17/2021,02/17/2021 Seasonal Influenza, PF, 6 M & [...] encounter Miscellaneous Notes * Telephone Encounter - Radha Rodriguez RP - 01/22/2024 11:45 AM ESTSigned Prescriptions: Disp Refills FLUoxetine HCl 20 MG Oral Capsule (PROzac) 90 Cap*0 Sig: TAKE 1 CAPSULE BY MOUTH EVERY DAYAuthorizing Provider: DIANE NOLASCO User: RADHA RODRIGUEZ * Telephone Encounter - Radha Rodriguez RP - 01/22/2024 11:44 AM EST RX authorized. Zero refills given as pt is due for appt. Patient will be contacted within [facility]. Thanks, Radha Rodriguez, PharmD Clinical Pharmacist [facility] ([facility] - Former[facility]) [phone] 01/22/2024 11:44 AM documented in this encounter Plan of [...] D LEVEL ONCE IN A LIFETIME-USE SMARTSET# [id number] Completed 05/30/2011, 01/23/2011, 09/27/2010, Additional history exists COLONOSCOPY-EVERY 2 YRS AGES 18-100 Discontinued 04/22/2022, 04/22/2022, 04/06/2009 LUNG CANCER SCREENING - USE SMARTSET [id number] Completed 12/26/2022, 10/08/2021, 07/05/2021, Additional history exists [...] encounter Visit Diagnoses Diagnosis Anxiety with depression documented in this encounter Advance Directives Latest Code Status on File Code Status Date Activated Date Inactivated Comments Full Code 12/30/2022 11:38 AM 12/31/2022 6:19 PM This order reflects the patients wishes and were consensually agreed upon. Question Answer Comments Discussion of Advance Directives occurred with: Patient Care Teams Distributor Of Directories Relationship Specialty Start Date End Date Diane Nolasco MD [address] [place] [address] PCP - General Family Medicine 01/23/21 documented as of this encounter
[2024-07-04 21:56] LABS: Appearance Urine Clear (Clear); Bilirubin Urine Negative (Negative); Blood Urine Negative (Negative); Color Urine Yellow; Glucose Urine UA Negative (Negative); Ketones Urine Trace (Negative); Leukocyte Esterase Urine Negative (Negative); Nitrite Urine Negative (Negative); Protein Urine Negative (Negative); Specific Gravity Urine 1.024 (1.000-1.030); Urobilinogen Urine Negative (Negative)
[2024-07-04] MEDS: ONDANSETRON INJ 2 MG/ML 2 ML VIAL IV STA (21:56)
[2024-07-04] MEDS: SODIUM CHLORIDE 0.9% 1,000 ML IV STA (21:56)
[2024-07-04] MEDS: ACETAMINOPHEN 1,000 MG/100 ML VIAL IV STA (21:57)
[2024-07-04 21:59] LABS: Basophils # (auto) 0.07 K/uL (0.00-0.20); Basophils % (auto) 0.9 %; Eosinophils # (auto) 0.13 K/uL (0.00-0.50); Eosinophils % (auto) 1.7 %; Hematocrit (blood only) 43.8 % (37.0-47.0); Hemoglobin 14.3 g/dl (12.0-16.0); Immature Granulocytes # (auto) 0.03 K/uL (0.01-0.20); Immature Granulocytes % (auto) 0.4 %; Lymphocytes % (auto) 38.1 %; Mean Corpuscular Hemoglobin 31.2 pg (25.0-34.0); Mean Corpuscular Hgb Conc 32.6 g/dL (32.0-36.0); Mean Corpuscular Volume 95.4 fL (80.0-100.0); Mean Platelet Volume 9.6 fL (9.4-12.4); Monocytes # (auto) 0.79 K/uL (0.11-0.59); Neutrophils # (auto) 3.85 K/uL (1.40-6.50); Neutrophils % (auto) 48.9 %; Platelet Count 304 K/uL (130-400); RDW Coefficient of Variation 13.2 % (11.5-14.5); RDW Standard Deviation 46.6 fL (36.4-46.3); Red Blood Count 4.59 M/uL (4.20-5.40); White Blood Count 7.87 K/ul (4.8-10.8)
[2024-07-04 22:09] LABS: Pregnancy Test, Serum Negative (Negative)
[2024-07-04 22:15] LABS: Albumin Globulin Ratio 1.7 (0.9-2); Albumin Level 4.2 gm/dl (3.4-5.0); BUN Creatinine Ratio 19.2 (10-20); Bilirubin,Total 0.3 mg/dl (0.2-1.0); Calcium 9.6 mg/dl (8.6-10.3); Creatinine Clr Calc Pharmacy 96.7 ml/min; Est GFR (African American) 104.5 ml/min; Est GFR (Non-African American) 90.1 ml/min; Globulin 2.5 gm/dl (2.5-4.0); Total Protein 6.7 gm/dl (6.0-8.3)
--- NOTE | 2024-07-04 23:00 | Emergency Department Note ---
Impression & Plan Abdominal pain, Dilation of small bowel anastomosis ED Provider Note CHIEF COMPLAINT: Abdominal pain HISTORY OF PRESENT ILLNESS: This 58-year-old female patient presents to the emergency department via private vehicle for evaluation of abdominal pain. This been ongoing for 3 days. She states it feels like a band wrapping around her mid abdomen, but the pain is worse on the left. She does report a history of multiple abdominal surgeries to include gastric bypass and states she often gets pain on the left. She does also report a history of kidney stones but has been many years since she has had 1. The patient states that there has been no fever or chills. No nausea or vomiting. Patient has been taking 400 mg ibuprofen daily for about 5 days without relief of her symptoms. She has also tried Tylenol. The patient has been eating and drinking without difficulty. REVIEW OF SYSTEMS: A 10 system review of systems was performed with positives and pertinent negatives listed in the history of present illness. All other systems were reviewed and are negative. ALLERGIES: Keflex PHYSICAL EXAM: VITALS: Vitals are noted on the nurse's note and reviewed by myself. Vital signs stable. GENERAL: This is a 58 year old female, in no acute distress, nondiaphoretic, well-developed well-nourished. SKIN: The skin was without rashes, erythema, edema, or bruising. There is no tenting of the skin. Capillary refill less than 2 seconds. HEAD: Normocephalic atraumatic. EYES: Conjunctivae without injection, sclerae without icterus. NECK: Supple without nuchal rigidity. Cervical spine is nontender. No JVD. HEART: Regular rate and rhythm without murmurs gallops or rubs. LUNGS: Clear to auscultation bilaterally without wheezes, rales or rhonchi. No retractions or accessory muscle use. ABDOMEN: Positive bowel sounds x 4. Generalized abdominal tenderness to palpation. The abdomen was soft, without masses or organomegaly. Gaviria sign negative. No guarding or rebound tenderness. Right CVA tenderness. MUSCULOSKELETAL: No muscle atrophy, erythema, or edema noted. Full range of motion without joint tenderness in all extremities. No tenderness to palpation. Normal gait. Strength 5/5 throughout. NEURO: Patient was alert and oriented to person place and time. No focal neurological deficits. 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 The monitor showed a normal sinus rhythm at a ventricular rate of 83 bpm, per my interpretation. Imaging as interpreted by myself and the radiologist revealed dilated small bowel at the jejunojejunostomy site measuring up to 3.4 cm. Radiologist notes "the need for surgical reevaluation should be determined clinically", with radiologist interpretation as above. I agree with the radiologist's findings as based upon my independent interpretation. EMERGENCY DEPARTMENT COURSE: Patient was seen and evaluated as above. The patient presents for nonspecific left-sided abdominal pain which radiates to the left flank. Initial concern for intra-abdominal pathology or nephrolithiasis. The patient does have history of multiple abdominal surgeries, small bowel obstructions, kidney stones. IV access was obtained, labs were drawn. Labs were reviewed. Per my interpretation, there was no leukocytosis or anemia. No thrombocytopenia. Renal, hepatic function and electrolytes without significant abnormality. Urinalysis negative for blood or evidence of infection. CT imaging was completed and reviewed by myself and radiologist as noted. I discussed findings with my attending physician. He did evaluate the patient. Unclear whether the patient is experiencing an acute small bowel obstruction. There was specific finding of dilated small bowel at the jejunojejunostomy site. The patient is not experiencing nausea or vomiting. She is not experiencing diarrhea or constipation. Bowel movements have been normal and she is passing gas without difficulty. She has not had a fever. Patient is experiencing some abdominal tenderness to palpation, but otherwise does not have a surgical abdomen. Discussed findings with the patient at bedside. Utilizing shared decision- making, the patient would like to stay in the hospital for observation given her history of obstructions and infections. Do feel that this is a reasonable plan given patient's history and workup completed here in the emergency department. I discussed case with Dr. Fabian, [facility] physician. He did agree to see the patient. Please see his dictation regarding ongoing management care of this patient. Case was discussed with the attending physician. This visit is during a period of high volume and high acuity in the emergency department. I attest that I have personally reviewed the patient medication list. I attest that I have reviewed the patient's blood pressure and it was found to be normal GCS: 15 In the evaluation and treatment of this patient the following differential diagnoses were entertained: appendicitis, diverticulitis, obstruction, inflammatory bowel disease, renal colic, PUD, biliary pathology, pancreatitis, mesenteric ischemia, aortic pathology, infections, genitourinary, UTI, perforated viscus, as well as others were entertained. The chart was completed utilizing [employer] Speech voice recognition software. Grammatical errors, random word insertions, pronoun errors, and incomplete sentences are an occasional consequence of this system due to software limitations, ambient noise, and hardware issues. Any formal questions or concerns about the content, text, or information contained within the body of this dictation should be directly addressed to the provider for clarification. Past Med/Surg History Problem List (Updated 07/05/24 @ 03:00 by Hafsa Dexter PA-C) Dilation of small bowel anastomosis (Acute) Abdominal pain (Acute) Ascending aortic aneurysm Atypical chest pain Tachycardia Intermittent palpitations Hypertension Aortic ectasia Obesity, morbid, BMI 40.0-49.9 Lab test negative for COVID-19 virus (Acute) Encounter for pre-operative examination UTI (urinary tract infection) (Acute) Upper abdominal pain (Acute) DVT prophylaxis E. coli UTI Goiter Fatigue Kidney stone Osteoporosis Vitamin D deficiency Vitamin B12 deficiency Urinary incontinence Restless leg syndrome Iron deficiency anemia Depression with anxiety NO LONGER ON MEDS Migraine without aura, not intractable, without status migrainosus HX Multiple sclerosis H/O: hysterectomy Pulmonary nodule JUST MONITORING Anemia (Acute) Thyroid nodule (Chronic) JUST MONITORING Vision disturbance Medical History Weakness Recurrent upper abdominal pain Nausea & vomiting Dermatitis DUE TO NERVE ISSUE Peptic ulcer disease HX Surgical History H/O thyroidectomy partial for enlargement, no cancer History of adenoidectomy History of appendectomy History of bilateral tubal ligation History of section X2 History of colonoscopy History of esophagogastroduodenoscopy (EGD) History of hysterectomy History of lithotripsy SEVERAL History of tonsillectomy History of tooth extraction Hx of abdominal surgery TO REPAIR MESH FROM HERNIA SURGERY> REPLACED MESH WITH "PIG SKIN COVERING" Hx of biopsy THYROID Hx of hernia repair SEVERAL Family History Mother Diabetes Social History Smoking Status: Former smoker Cigarettes Per Day: 10; Second Hand Exposure: No; Do You Dip or Chew Tobacco: No; Hx Alcohol Use: Yes Alcohol type: beer Hx Substance Use: No Preferred Language: Somali Communication Ability: Effective Weaver Dobby Loom Required: No Beliefs That Will Affect Care: None Current Living Situation: Spouse Feels Safe at Home: Yes Assistive Devices: None Allergies Allergies Allergy/AdvReac Type Severity Reaction Status Date / Time cephalexin Allergy Unknown RASH HIVES Verified 08/13/23 08:48 TROUBLE BREATHING ITCHY Cephalosporins Allergy Unknown Rash,hives, Verified 08/13/23 08:48 trouble breathing and itchiness Home Meds Home Medications Medication Instructions Recorded Confirmed pantoprazole 40 mg tablet,delayed 40 mg PO QAM 02/10/20 08/13/23 release (Protonix) acetaminophen 325 mg capsule 650 mg PO QID PRN Pain 10/12/20 08/13/23 (Tylenol) trazodone 50 mg tablet 50 mg PO HS PRN Sleep 06/28/21 08/13/23 fluoxetine 20 mg capsule 20 mg PO DAILY 10/04/21 08/13/23 gabapentin 300 mg capsule 300 mg PO TID 08/13/23 08/13/23 Previous Rx's Medication Instructions Recorded lisinopril 5 mg tablet 5 mg PO DAILY #0 tabs 10/06/21 ropinirole 0.5 mg tablet 0.5 mg PO DAILY PRN restless 01/07/22 leg(s) #30 tabs ergocalciferol (vitamin D2) 1,250 50,000 unit PO 2XWK #8 caps 03/05/22 mcg (50,000 unit) capsule cyanocobalamin (vitamin B-12) 1,000 mcg IM MONTHLY 30 days #30 mL 09/10/23 1,000 mcg/mL injection solution Results & Data (ED) Vital Signs Vital Signs - 24 hr 07/04/24 21:11 07/04/24 21:43 07/04/24 21:49 Temperature 36.1 C L Temperature Source Temporal Artery Scan Pulse Rate 90 83 Pulse Rate [Apical] Respiratory Rate 20 Blood Pressure 139/84 Blood Pressure [Right Arm] Blood Pressure Mean 102 Blood Pressure Mean [Right Arm] Pulse Oximetry 95 96 Oxygen Delivery Method Room Air Room Air Sepsis Recent Fever Within 48 Hours No Sepsis New/Unexplained Change in Mental Status No Sepsis Action Taken by Nursing No Action Required 07/04/24 23:00 07/05/24 01:00 07/05/24 01:42 Temperature Temperature Source Pulse Rate 81 Pulse Rate [Apical] 79 81 Respiratory Rate 24 21 Blood Pressure Blood Pressure [Right Arm] 115/70 114/87 Blood Pressure Mean Blood Pressure Mean [Right Arm] 85 96 Pulse Oximetry 95 90 Oxygen Delivery Method Room Air Sepsis Recent Fever Within 48 Hours Sepsis New/Unexplained Change in Mental Status Sepsis Action Taken by Nursing Laboratory Data 07/04/24 21:30 07/04/24 21:30 Lab Results 07/04/24 07/04/24 Range/Units 21:30 21:49 WBC 7.87 (4.8-10.8) K/ul RBC 4.59 (4.20-5.40) M/uL Hgb 14.3 (12.0-16.0) g/dl Hct 43.8 (37.0-47.0) % MCV 95.4 (80.0-100.0) fL MCH 31.2 (25.0-34.0) pg MCHC 32.6 (32.0-36.0) g/dL RDW Std Deviation 46.6 H (36.4-46.3) fL RDW Coeff of Delphine 13.2 (11.5-14.5) % Plt Count 304 (130-400) K/uL MPV 9.6 (9.4-12.4) fL Immature Gran % (Auto) 0.4 % Neut % (Auto) 48.9 % Lymph % (Auto) 38.1 % Milam % (Auto) 10.0 % Eos % (Auto) 1.7 % Baso % (Auto) 0.9 % Neut # (Auto) 3.85 (1.40-6.50) K/uL Lymph # (Auto) 3.00 (1.20-3.40) K/uL Milam # (Auto) 0.79 H (0.11-0.59) K/uL Eos # (Auto) 0.13 (0.00-0.50) K/uL Baso # (Auto) 0.07 (0.00-0.20) K/uL Immature Gran # (Auto) 0.03 (0.01-0.20) K/uL Sodium 139 (136-145) mmol/L Potassium 4.0 (3.5-5.1) mmol/L Chloride 107 (98-107) mmol/L Carbon Dioxide 26 (21-32) mmol/L Anion Gap 6 (3-11) BUN 14 (6-23) mg/dl Creatinine 0.73 (0.6-1.2) mg/dl Est Cr Clr Drug Dosing 96.7 ml/min Est GFR ( Amer) 104.5 ml/min Est GFR (Non-Af Amer) 90.1 ml/min BUN/Creatinine Ratio 19.2 (10-20) Glucose 83 (70-99(Fasting)) mg/dl Calcium 9.6 (8.6-10.3) mg/dl Total Bilirubin 0.3 (0.2-1.0) mg/dl AST 16 (13-39) U/L ALT 17 (7-52) U/L Alkaline Phosphatase 99 (34-104) U/L Total Protein 6.7 (6.0-8.3) gm/dl Albumin 4.2 (3.4-5.0) gm/dl Globulin 2.5 (2.5-4.0) gm/dl Albumin/Globulin Ratio 1.7 (0.9-2) Lipase 45 (11-82) U/L HCG, Qual Negative (Negative) Urine Color Yellow Urine Appearance Clear (Clear) Urine pH 6.0 (4.5-7.5) Ur Specific Graford 1.024 (1.000-1.030) Urine Protein Negative (Negative) Urine Glucose (UA) Negative (Negative) Urine Ketones Trace H (Negative) Urine Blood Negative (Negative) Urine Nitrite Negative (Negative) Urine Bilirubin Negative (Negative) Urine Urobilinogen Negative (Negative) Ur Leukocyte Esterase Negative (Negative) Administered Medications Discontinued Medications Sodium Chloride (Nss) 1,000 mls @ 999 mls/hr IV .Q1H1M STA Stop: 07/04/24 22:42 Last Infusion: 07/05/24 00:53 Dose: Infused Documented By: Admin: 07/04/24 21:56 Dose: 999 mls/hr Documented By: SANIA Acetaminophen (Ofirmev) 1,000 mg in 100 mls @ 400 mls/hr IV NOW STA Stop: 07/04/24 21:56 Last Infusion: 07/04/24 22:36 Dose: Infused Documented By: Admin: 07/04/24 21:57 Dose: 400 mls/hr Documented By: SANIA Famotidine (Pepcid 20mg Iv Push) 20 mg in 5 mls @ 2.5 mls/min IV NOW STA Stop: 07/05/24 02:47 Last Admin: 07/05/24 02:55 Dose: 2.5 mls/min Documented By: AUGUSTO Ondansetron HCl (Ondansetron Inj 2 Mg/Ml 2 Ml Vial) 4 mg IV NOW STA Stop: 07/04/24 21:43 Last Admin: 07/04/24 21:56 Dose: 4 mg Documented By: SANIA Imaging Data Radiologist's Impression: Abdomen/Pelvis CT 07/04/24 21:43 Exam(s): CT ABDOMEN + PELVIS Without Contrast EXAM: CT Abdomen and Pelvis Without Intravenous Contrast CLINICAL HISTORY: Reason for exam: lower abd, left flank pain. TECHNIQUE: Axial computed tomography images of the abdomen and pelvis without intravenous contrast. CTDI is 27 mGy and DLP is 1307 mGy-cm. Automated exposure control was utilized for the study. A dose lowering technique was utilized adhering to the principles of ALARA. COMPARISON: No relevant prior studies available. FINDINGS: Lung bases: Unremarkable. No mass. No consolidation. ABDOMEN: Liver: Unremarkable. Gallbladder and bile ducts: Cholecystectomy. No ductal dilation. Pancreas: Unremarkable. No ductal dilation. Spleen: Unremarkable. No splenomegaly. Adrenals: Unremarkable. No mass. Kidneys and ureters: Unremarkable. No obstructing stones. No hydronephrosis. Stomach and bowel: Keon-en-Y gastric bypass. Dilated small bowel at the jejunojejunostomy measuring up to 3.4 cm. The need for surgical reevaluation should be determined clinically. Diverticulosis, without acute diverticulitis. No free intraperitoneal air. PELVIS: Appendix: No acute appendicitis. Bladder: Unremarkable. No stones. Reproductive: Hysterectomy. ABDOMEN and PELVIS: Intraperitoneal space: Unremarkable. No free air. No significant fluid collection. Bones/joints: Degenerative changes of the spine. No acute fracture. No dislocation. Soft tissues: Unremarkable. Vasculature: Atherosclerotic changes of the aorta. No abdominal aortic aneurysm. Lymph nodes: Unremarkable. No enlarged lymph nodes. IMPRESSION: 1. Keon-en-Y gastric bypass. Dilated small bowel at the jejunojejunostomy measuring up to 3.4 cm. The need for surgical reevaluation should be determined clinically. 2. Hysterectomy. 3. Diverticulosis, without acute diverticulitis. No free intraperitoneal air. Electronically signed by: Jovani Naidu MD 07/05/24 01:47 AM Discharge Plan Visit Data Chief Complaint: Abdominal Pain Stated Complaint: ABD PAIN ED Provider: Elia Cisneros ED Midlevel Provider: Hafsa Dexter Discharge Problem: Abdominal pain, Dilation of small bowel anastomosis Patient Disposition: Admitted As Inpatient Forms Stand Alone Forms: [facility] Prescriptions Prescriptions: No Action ropinirole 0.5 mg tablet 0.5 mg PO DAILY PRN (Reason: restless leg(s)) Qty: 30 5RF ergocalciferol (vitamin D2) 1,250 mcg (50,000 unit) capsule 50,000 unit PO 2XWK Qty: 8 6RF Rx Instructions: TAKES ON & TH. cyanocobalamin (vitamin B-12) 1,000 mcg/mL solution 1,000 mcg IM MONTHLY 30 Days Qty: 30 5RF Rx Instructions: from Hematology gabapentin 300 mg capsule 300 mg PO TID trazodone 50 mg tablet 50 mg PO HS PRN (Reason: Sleep) acetaminophen [Tylenol] 325 mg Capsule 650 mg PO QID PRN (Reason: Pain) pantoprazole [Protonix] 40 mg tablet,delayed release (DR/EC) 40 mg PO QAM fluoxetine 20 mg capsule 20 mg PO DAILY lisinopril 5 mg tablet 5 mg PO DAILY Qty: 0 0RF Referrals Referrals: Tamia Nolasco MD [Primary Care Provider] -
--- NOTE | 2024-07-05 01:48 | CT Scan Report ---
Exam(s): CT ABDOMEN + PELVIS Without Contrast EXAM: CT Abdomen and Pelvis Without Intravenous Contrast CLINICAL HISTORY: Reason for exam: lower abd, left flank pain. TECHNIQUE: Axial computed tomography images of the abdomen and pelvis without intravenous contrast. CTDI is 27 mGy and DLP is 1307 mGy-cm. Automated exposure control was utilized for the study. A dose lowering technique was utilized adhering to the principles of ALARA. COMPARISON: No relevant prior studies available. FINDINGS: Lung bases: Unremarkable. No mass. No consolidation. ABDOMEN: Liver: Unremarkable. Gallbladder and bile ducts: Cholecystectomy. No ductal dilation. Pancreas: Unremarkable. No ductal dilation. Spleen: Unremarkable. No splenomegaly. Adrenals: Unremarkable. No mass. Kidneys and ureters: Unremarkable. No obstructing stones. No hydronephrosis. Stomach and bowel: Keon-en-Y gastric bypass. Dilated small bowel at the jejunojejunostomy measuring up to 3.4 cm. The need for surgical reevaluation should be determined clinically. Diverticulosis, without acute diverticulitis. No free intraperitoneal air. PELVIS: Appendix: No acute appendicitis. Bladder: Unremarkable. No stones. Reproductive: Hysterectomy. ABDOMEN and PELVIS: Intraperitoneal space: Unremarkable. No free air. No significant fluid collection. Bones/joints: Degenerative changes of the spine. No acute fracture. No dislocation. Soft tissues: Unremarkable. Vasculature: Atherosclerotic changes of the aorta. No abdominal aortic aneurysm. Lymph nodes: Unremarkable. No enlarged lymph nodes. IMPRESSION: 1. Keon-en-Y gastric bypass. Dilated small bowel at the jejunojejunostomy measuring up to 3.4 cm. The need for surgical reevaluation should be determined clinically. 2. Hysterectomy. 3. Diverticulosis, without acute diverticulitis. No free intraperitoneal air. Electronically signed by: Jovani Naidu MD 07/05/24 01:47 AM
[2024-07-05] MEDS: FAMOTIDINE 20MG IV PUSH 20 MG/5 ML SYR IV STA (02:55)
--- NOTE | 2024-07-05 04:46 | History & Physical Report ---
Date of Service July 05, 2024 Assessment & Plan (1) Abdominal pain: Plan: 58-year-old female with past medical history significant for solitary pulmonary nodule, aortic ectasia, diverticular disease, calculus of kidney, urinary incontinence, multiple sclerosis, migraine, restless leg syndrome, rectus sheath hematoma, osteoporosis, history of iron deficiency anemia, history of gastric bypass, anxiety/ depression, presents with abdominal pain. Since afternoon she is having severe abdominal pain associated with nausea. No vomiting. In the evening moved her bowels which were normal. Passing gas. Denies any chest pain. No shortness of breath. Has chronic cough. Has Some dizziness. States vision is always blurry. No runny nose or sore throat. No fevers. Has mild to moderate headache. Micturating okay. Resting comfortably and hemodynamically stable. Abdominal pain CT scan showing dilated small bowel at the jejunojejunostomy measuring up to 3.4 cm Will keep her n.p.o., IV fluids, IV Dilaudid as needed, IV antiemetics as needed KUB in a.m., Surgery consult in a.m. for further recommendations, Hypertension, Continue lisinopril, GERD On Protonix, Depression and anxiety Duloxetine and hydroxyzine as needed DVT prophylaxis Lovenox Disposition Observation medical floor Full code History of Present Illness Chief Complaint: Abdominal pain Primary Care Provider: Tamia Nolasco MD 58-year-old female with past medical history significant for solitary pulmonary nodule, aortic ectasia, diverticular disease, calculus of kidney, urinary incontinence, multiple sclerosis, migraine, restless leg syndrome, rectus sheath hematoma, osteoporosis, history of iron deficiency anemia, history of gastric bypass, anxiety/ depression, presents with abdominal pain. Since afternoon she is having severe abdominal pain associated with nausea. No vomiting. In the evening moved her bowels which were normal. Passing gas. Denies any chest pain. No shortness of breath. Has chronic cough. Has Some dizziness. States vision is always blurry. No runny nose or sore throat. No fevers. Has mild to moderate headache. Micturating okay. Resting comfortably and hemodynamically stable. Past medical history. As mentioned above. Past surgical history. Colonoscopy. EGD. EGD with biopsy. Gastric bypass for obesity. Total abdominal hysterectomy with removal of tubes. Social history. Quit smoking 2018. Smoked 0.6 pack a day for 34 years. Alcohol occasional. No drug use. Family history no family history on file Allergies Allergy/AdvReac Type Severity Reaction Status Date / Time cephalexin Allergy Unknown RASH HIVES Verified 08/13/23 08:48 TROUBLE BREATHING ITCHY Cephalosporins Allergy Unknown Rash,hives, Verified 08/13/23 08:48 trouble breathing and itchiness Home Medications Medication Instructions Recorded Confirmed Type duloxetine 30 mg capsule,delayed 30 mg PO BID 07/05/24 07/05/24 History release hydroxyzine HCl 10 mg tablet 10 mg PO Q6H PRN Anxiety 07/05/24 07/05/24 History lisinopril 5 mg tablet 5 mg PO HS 07/05/24 07/05/24 History pantoprazole 40 mg tablet,delayed 40 mg PO DAILY 07/05/24 07/05/24 History release Past Med/Surg History Problem List Dilation of small bowel anastomosis (Acute) Abdominal pain (Acute) Ascending aortic aneurysm Atypical chest pain Tachycardia Intermittent palpitations Hypertension Aortic ectasia Obesity, morbid, BMI 40.0-49.9 Lab test negative for COVID-19 virus (Acute) Encounter for pre-operative examination UTI (urinary tract infection) (Acute) Upper abdominal pain (Acute) DVT prophylaxis E. coli UTI Goiter Fatigue Kidney stone Osteoporosis Vitamin D deficiency Vitamin B12 deficiency Urinary incontinence Restless leg syndrome Iron deficiency anemia Depression with anxiety NO LONGER ON MEDS Migraine without aura, not intractable, without status migrainosus HX Multiple sclerosis H/O: hysterectomy Pulmonary nodule JUST MONITORING Anemia (Acute) Thyroid nodule (Chronic) JUST MONITORING Vision disturbance Medical History Weakness Recurrent upper abdominal pain Nausea & vomiting Dermatitis DUE TO NERVE ISSUE Peptic ulcer disease HX Surgical History H/O thyroidectomy partial for enlargement, no cancer History of hysterectomy History of bilateral tubal ligation History of appendectomy Hx of abdominal surgery TO REPAIR MESH FROM HERNIA SURGERY> REPLACED MESH WITH "PIG SKIN COVERING" History of section X2 Hx of hernia repair SEVERAL History of esophagogastroduodenoscopy (EGD) History of colonoscopy History of tooth extraction History of adenoidectomy History of tonsillectomy Hx of biopsy THYROID History of lithotripsy SEVERAL History of gastric bypass Family History Mother Diabetes Social History Smoking Status: Former smoker Cigarettes Per Day: 10; Second Hand Exposure: No; Do You Dip or Chew Tobacco: No; Hx Alcohol Use: Yes Alcohol type: beer Hx Substance Use: No Preferred Language: Chinese Communication Ability: Effective Legal Transcriptionist Required: No Beliefs That Will Affect Care: None Current Living Situation: Spouse Feels Safe at Home: Yes Assistive Devices: None Review of Systems Review of Systems: All systems reviewed & are unremarkable except as noted in HPI & below Physical Exam Physical Exam: General- Not in distress Head- atraumatic Eyes- PERRL. ENT- oropharynx clear Neck- supple, no JVD. Lungs- clear to auscultation no wheezing or crackles Heart- regular rhythm; no murmur, no gallop. Abdomen- normal bowel sounds, soft, nontender, no distension Extremities- no pretibial edema, no erythema seen Neuro- alert, oriented ; PERRL, no facial palsy; no dysarthria; moves extremities Results & Data Results & Data Vital Signs (Past 12 Hours) Vital Signs Temp Pulse Pulse Resp BP BP Pulse Ox 07/05/24 03:00 83 20 105/72 96 07/05/24 01:42 81 07/05/24 01:00 81 21 114/87 90 07/04/24 23:00 79 24 115/70 95 07/04/24 21:49 96 07/04/24 21:43 83 07/04/24 21:11 36.1 C L 90 20 139/84 95 O2 Del Method 07/05/24 03:00 Room Air 07/05/24 01:42 07/05/24 01:00 Room Air 07/04/24 23:00 07/04/24 21:49 Room Air 07/04/24 21:43 07/04/24 21:11 Room Air Diagnostic Findings Laboratory Results WBC 7.87 K/ul (4.8-10.8) 07/04/24 21:30 RBC 4.59 M/uL (4.20-5.40) 07/04/24 21:30 Hgb 14.3 g/dl (12.0-16.0) 07/04/24 21:30 Hct 43.8 % (37.0-47.0) 07/04/24 21:30 MCV 95.4 fL (80.0-100.0) 07/04/24 21:30 MCH 31.2 pg (25.0-34.0) 07/04/24 21: MCHC 32.6 g/dL (32.0-36.0) 07/04/24 21:30 RDW Std Deviation 46.6 fL (36.4-46.3) H 07/04/24 21:30 RDW Coeff of Delphine 13.2 % (11.5-14.5) 07/04/24 21: Plt Count 304 K/uL (130-400) 07/04/24 21:30 MPV 9.6 fL (9.4-12.4) 07/04/24 21:30 Immature Gran % (Auto) 0.4 % 07/04/24 21:30 Neut % (Auto) 48.9 % 07/04/24 21:30 Lymph % (Auto) 38.1 % 07/04/24 21:30 [place] % (Auto) 10.0 % 07/04/24 21:30 Eos % (Auto) 1.7 % 07/04/24 21:30 Baso % (Auto) 0.9 % 07/04/24 21:30 Neut # (Auto) 3.85 K/uL (1.40-6.50) 07/04/24 21: Lymph # (Auto) 3.00 K/uL (1.20-3.40) 07/04/24 21:30 [place] # (Auto) 0.79 K/uL (0.11-0.59) H 07/04/24 21:30 Eos # (Auto) 0.13 K/uL (0.00-0.50) 07/04/24 21:30 Baso # (Auto) 0.07 K/uL (0.00-0.20) 07/04/24 21:30 Immature Gran # (Auto) 0.03 K/uL (0.01-0.20) 07/04/24 21:30 Sodium 139 mmol/L (136-145) 07/04/24 21:30 Potassium 4.0 mmol/L (3.5-5.1) 07/04/24 21:30 Chloride 107 mmol/L (98-107) 07/04/24 21:30 Carbon Dioxide 26 mmol/L (21-32) 07/04/24 21:30 Anion Gap 6 (3-11) 07/04/24 21:30 BUN 14 mg/dl (6-23) 07/04/24 21:30 Creatinine 0.73 mg/dl (0.6-1.2) 07/04/24 21:30 Est Cr Clr Drug Dosing 96.7 ml/min 07/04/24 21:30 Est GFR ( Amer) 104.5 ml/min 07/04/24 21:30 Est GFR (Non-Af Amer) 90.1 ml/min 07/04/24 21:30 BUN/Creatinine Ratio 19.2 (10-20) 07/04/24 21:30 Glucose 83 mg/dl (70-99(Fasting)) 07/04/24 21:30 Calcium 9.6 mg/dl (8.6-10.3) 07/04/24 21:30 Total Bilirubin 0.3 mg/dl (0.2-1.0) 07/04/24 21:30 AST 16 U/L (13-39) 07/04/24 21:30 ALT 17 U/L (7-52) 07/04/24 21:30 Alkaline Phosphatase 99 U/L (34-104) 07/04/24 21:30 Total Protein 6.7 gm/dl (6.0-8.3) 07/04/24 21:30 Albumin 4.2 gm/dl (3.4-5.0) 07/04/24 21:30 Globulin 2.5 gm/dl (2.5-4.0) 07/04/24 21:30 Albumin/Globulin Ratio 1.7 (0.9-2) 07/04/24 21:30 Lipase 45 U/L (11-82) 07/04/24 21:30 HCG, Qual Negative (Negative) 07/04/24 21:30 Urine Color Yellow 07/04/24 21:49 Urine Appearance Clear (Clear) 07/04/24 21:49 Urine pH 6.0 (4.5-7.5) 07/04/24 21:49 Ur Specific [place] 1.024 (1.000-1.030) 07/04/24 21:49 Urine Protein Negative (Negative) 07/04/24 21:49 Urine Glucose (UA) Negative (Negative) 07/04/24 21:49 Urine Ketones Trace (Negative) H 07/04/24 21:49 Urine Blood Negative (Negative) 07/04/24 21:49 Urine Nitrite Negative (Negative) 07/04/24 21:49 Urine Bilirubin Negative (Negative) 07/04/24 21:49 Urine Urobilinogen Negative (Negative) 07/04/24 21:49 Ur Leukocyte Esterase Negative (Negative) 07/04/24 21:49 Impressions Abdomen/Pelvis CT 07/04/24 21:43 Exam(s): CT ABDOMEN + PELVIS Without Contrast EXAM: CT Abdomen and Pelvis Without Intravenous Contrast CLINICAL HISTORY: Reason for exam: lower abd, left flank pain. TECHNIQUE: Axial computed tomography images of the abdomen and pelvis without intravenous contrast. CTDI is 27 mGy and DLP is 1307 mGy-cm. Automated exposure control was utilized for the study. A dose lowering technique was utilized adhering to the principles of ALARA. COMPARISON: No relevant prior studies available. FINDINGS: Lung bases: Unremarkable. No mass. No consolidation. ABDOMEN: Liver: Unremarkable. Gallbladder and bile ducts: Cholecystectomy. No ductal dilation. Pancreas: Unremarkable. No ductal dilation. Spleen: Unremarkable. No splenomegaly. Adrenals: Unremarkable. No mass. Kidneys and ureters: Unremarkable. No obstructing stones. No hydronephrosis. Stomach and bowel: Keon-en-Y gastric bypass. Dilated small bowel at the jejunojejunostomy measuring up to 3.4 cm. The need for surgical reevaluation should be determined clinically. Diverticulosis, without acute diverticulitis. No free intraperitoneal air. PELVIS: Appendix: No acute appendicitis. Bladder: Unremarkable. No stones. Reproductive: Hysterectomy. ABDOMEN and PELVIS: Intraperitoneal space: Unremarkable. No free air. No significant fluid collection. Bones/joints: Degenerative changes of the spine. No acute fracture. No dislocation. Soft tissues: Unremarkable. Vasculature: Atherosclerotic changes of the aorta. No abdominal aortic aneurysm. Lymph nodes: Unremarkable. No enlarged lymph nodes. IMPRESSION: 1. Keon-en-Y gastric bypass. Dilated small bowel at the jejunojejunostomy measuring up to 3.4 cm. The need for surgical reevaluation should be determined clinically. 2. Hysterectomy. 3. Diverticulosis, without acute diverticulitis. No free intraperitoneal air. Electronically signed by: Jovani Naidu MD 07/05/24 01:47 AM Code Status & VTE Plan VTE Prophylaxis Plan VTE Prophylaxis will be ordered: Yes
[2024-07-05] MEDS: KETOROLAC TROMETHAMINE 15 MG/ML VIAL IV ONE (05:39)
[2024-07-05] MEDS: PROMETHAZINE HCL 12.5 MG in SODIUM CHLORIDE 0.9% 50 ML IV STA (05:39)
--- NOTE | 2024-07-05 08:28 | Surgery Consultation ---
<Statement entered by Dominick Solis, - 07/05/24 17:00> I have discussed this case with the surgical PA and I agree with the plan Date of Consultation July 05, 2024 Assessment & Plan (1) Dilation of small bowel anastomosis: This is a 58yF with a PMH of RYGB 19 years ago at [place], HTN, depression/anxiety, hysterectomy, multiple hernia repairs, who presents to the [facility] on 07/04/24 with abdominal pain that began last and has gotten worse. In the ER she underwent a CT a/p that showed luanne-en-Y gastric bypass with dilated small bowel at the jejunojejunostomy measuring up to 3.4 cm. The patient reports some mild nausea overnight, but no emesis. She had a BM yesterday which was normal for her and she is passing gas. Labs show WBC 7.8, Hbg 14, Cr 0.7. Vital signs are stable. On exam patient is resting comfortably. Abdomen is soft, not distended, with multiple scars from prior surgeries. She has generalized discomfort to palpation but is somewhat worse in the left mid/upper abdomen. The patient reports feeling somewhat better than when she came in. She currently denies nausea/vomiting and is having + bowel function. CT did not specifically comment on an SBO but dilation of her j-j anastomosis. A KUB is pending this AM and we will take a look at it for further evaluation. I believe since she is stable we can manage this conservatively with bowel rest and supportive care. No indication for NGT at this time. Can always have conversation with her bariatric surgeon regarding CT imaging as we are not a bariatric center here and consider them weighing in on the situation. She is stable and does not have a surgical abdomen. Lets keep NPO for now while awaiting ongoing symptom improvement, will f/u on KUB. (2) Abdominal pain: History of Present Illness Attending Physician: Don Robert MD History of Present Illness This is a 58yF with a PMH of RYGB 19 years ago at [place], HTN, depression/anxiety, hysterectomy, multiple hernia repairs, who presents to the [facility] on 07/04/24 with abdominal pain. Patient states the pain started last , she thought it was related to gas but the pain and symptoms got worse over the wknd prompting her to come in for evaluation. Patient states this has happened to her intermittently before and sometimes it gets better on its own. She did undergo a CT a/p in the ER that showed luanne-en-Y gastric bypass with dilated small bowel at the jejunojejunostomy measuring up to 3.4 cm. The patient reports some mild nausea overnight, but no emesis. She had a BM yesterday which was normal for her and she is passing gas. She reports a + headache at the moment and feelings of dizziness. She said she feels bloated and sometimes like an inner tube is blown up around her abdomen. She denies fevers/chills, CP/SOB. She states she feels about 50% better than when she came in. Allergies Allergy/AdvReac Type Severity Reaction Status Date / Time cephalexin Allergy Unknown RASH HIVES Verified 08/13/23 08:48 TROUBLE BREATHING ITCHY Cephalosporins Allergy Unknown Rash,hives, Verified 08/13/23 08:48 trouble breathing and itchiness Home Medications Medication Instructions Recorded Confirmed Type duloxetine 30 mg capsule,delayed 30 mg PO BID 07/05/24 07/05/24 History release hydroxyzine HCl 10 mg tablet 10 mg PO Q6H PRN Anxiety 07/05/24 07/05/24 History lisinopril 5 mg tablet 5 mg PO HS 07/05/24 07/05/24 History pantoprazole 40 mg tablet,delayed 40 mg PO DAILY 07/05/24 07/05/24 History release Patient History Medical History Weakness Recurrent upper abdominal pain Nausea & vomiting Dermatitis DUE TO NERVE ISSUE Peptic ulcer disease HX Surgical History H/O thyroidectomy partial for enlargement, no cancer History of hysterectomy History of bilateral tubal ligation History of appendectomy Hx of abdominal surgery TO REPAIR MESH FROM HERNIA SURGERY> REPLACED MESH WITH "PIG SKIN COVERING" History of section X2 Hx of hernia repair SEVERAL History of esophagogastroduodenoscopy (EGD) History of colonoscopy History of tooth extraction History of adenoidectomy History of tonsillectomy Hx of biopsy THYROID History of lithotripsy SEVERAL History of gastric bypass Family History Mother Diabetes Social History Smoking Status: Former smoker Cigarettes Per Day: 10; Second Hand Exposure: No; Do You Dip or Chew Tobacco: No; Hx Alcohol Use: Yes Alcohol type: beer Hx Substance Use: No Preferred Language: Malay Communication Ability: Effective 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 Beliefs That Will Affect Care: None Current Living Situation: Spouse Feels Safe at Home: Yes Assistive Devices: None Review of Systems Constitutional: no fever and no chills Respiratory: no dyspnea Cardiovascular: no chest pain Gastrointestinal: + abdominal pain (mostly upper left side ), + bloating and + nausea; no vomiting and no change in bowel habits Genitourinary: no problem reported Physical Exam Physical Exam: awake/alert, no distress, resting comfortably Respiratory: normal respiratory effort Cardiovascular: Rate/Rhythm: regular rate Gastrointestinal (Abdomen): Inspection/Auscultation: + abdominal surgical scar; abdomen not distended Percussion/Palpation: + abdomen tender (generalized discomfort but worse in the L mid/upper abdomen) and abdomen soft; abdomen not rigid Results & Data Vital Signs (Past 12 Hours) Vital Signs Temp Pulse Pulse Resp BP BP Pulse Ox 07/05/24 06:00 76 19 119/71 96 07/05/24 05:49 67 07/05/24 05:00 71 20 125/83 96 07/05/24 03:00 83 20 105/72 96 07/05/24 01:42 81 07/05/24 01:00 81 21 114/87 90 07/04/24 23:00 79 24 115/70 95 07/04/24 21:49 96 07/04/24 21:43 83 07/04/24 21:11 97.0 F L 90 20 139/84 95 O2 Del Method 07/05/24 06:00 Room Air 07/05/24 05:49 07/05/24 05:00 Room Air 07/05/24 03:00 Room Air 07/05/24 01:42 07/05/24 01:00 Room Air 07/04/24 23:00 07/04/24 21:49 Room Air 07/04/24 21:43 07/04/24 21:11 Room Air Diagnostic Findings Exam(s): CT ABDOMEN + PELVIS Without Contrast EXAM: CT Abdomen and Pelvis Without Intravenous Contrast CLINICAL HISTORY: Reason for exam: lower abd, left flank pain. TECHNIQUE: Axial computed tomography images of the abdomen and pelvis without intravenous contrast. CTDI is 27 mGy and DLP is 1307 mGy-cm. Automated exposure control was utilized for the study. A dose lowering technique was utilized adhering to the principles of ALARA. COMPARISON: No relevant prior studies available. FINDINGS: Lung bases: Unremarkable. No mass. No consolidation. ABDOMEN: Liver: Unremarkable. Gallbladder and bile ducts: Cholecystectomy. No ductal dilation. Pancreas: Unremarkable. No ductal dilation. Spleen: Unremarkable. No splenomegaly. Adrenals: Unremarkable. No mass. Kidneys and ureters: Unremarkable. No obstructing stones. No hydronephrosis. Stomach and bowel: Luanne-en-Y gastric bypass. Dilated small bowel at the jejunojejunostomy measuring up to 3.4 cm. The need for surgical reevaluation should be determined clinically. Diverticulosis, without acute diverticulitis. No free intraperitoneal air. PELVIS: Appendix: No acute appendicitis. Bladder: Unremarkable. No stones. Reproductive: Hysterectomy. ABDOMEN and PELVIS: Intraperitoneal space: Unremarkable. No free air. No significant fluid collection. Bones/joints: Degenerative changes of the spine. No acute fracture. No dislocation. Soft tissues: Unremarkable. Vasculature: Atherosclerotic changes of the aorta. No abdominal aortic aneurysm. Lymph nodes: Unremarkable. No enlarged lymph nodes. IMPRESSION: 1. Luanne-en-Y gastric bypass. Dilated small bowel at the jejunojejunostomy measuring up to 3.4 cm. The need for surgical reevaluation should be determined clinically. 2. Hysterectomy. 3. Diverticulosis, without acute diverticulitis. No free intraperitoneal air. Electronically signed by: Jovani Naidu MD 07/05/24 01:47 AM PG Care Time/CCT Total # of Minutes Spent Total Time Spent with Patient: Total time spent is greater than 50% in coordination of care (as documented) at patient's floor/unit and/or counseling patient: Coding Level of Care Code 91500 IN/OBS CONSULT LVL 3,45M Diagnoses Dilation of small bowel anastomosis K91.89 Abdominal pain R10.9
[2024-07-05] MEDS: ENOXAPARIN INJ 40 MG/0.4 ML SYR SQ SCH (08:53)
[2024-07-05] MEDS: ACETAMINOPHEN 1,000 MG/100 ML VIAL IV STA (08:53)
[2024-07-05] MEDS: PANTOprazole 40 MG TAB PO SCH (08:53)
[2024-07-05] MEDS: DULoxetine HCL 30 MG CAP PO SCH (08:53)
[2024-07-05] MEDS: D5W AND NSS 1,000 ML IV SCH (08:53)
[2024-07-05 09:51] LABS: Basophils # (auto) 0.05 K/uL (0.00-0.20); Basophils % (auto) 0.9 %; Eosinophils # (auto) 0.14 K/uL (0.00-0.50); Eosinophils % (auto) 2.5 %; Hematocrit (blood only) 40.3 % (37.0-47.0); Hemoglobin 13.2 g/dl (12.0-16.0); Immature Granulocytes # (auto) 0.01 K/uL (0.01-0.20); Immature Granulocytes % (auto) 0.2 %; Lymphocytes # (auto) 2.03 K/uL (1.20-3.40); Lymphocytes % (auto) 35.7 %; Mean Corpuscular Hemoglobin 31.3 pg (25.0-34.0); Mean Corpuscular Hgb Conc 32.8 g/dL (32.0-36.0); Mean Corpuscular Volume 95.5 fL (80.0-100.0); Mean Platelet Volume 9.5 fL (9.4-12.4); Monocytes # (auto) 0.57 K/uL (0.11-0.59); Neutrophils # (auto) 2.89 K/uL (1.40-6.50); Neutrophils % (auto) 50.7 %; Platelet Count 250 K/uL (130-400); RDW Coefficient of Variation 13.3 % (11.5-14.5); RDW Standard Deviation 47.5 fL (36.4-46.3); Red Blood Count 4.22 M/uL (4.20-5.40); White Blood Count 5.69 K/ul (4.8-10.8)
[2024-07-05 10:15] LABS: Calcium 8.7 mg/dl (8.6-10.3); Potassium 4.2 mmol/L (3.5-5.1)
[2024-07-05 10:20] LABS: Creatinine Clr Calc Pharmacy 115.8 ml/min; Est GFR (Non-African American) 99.2 ml/min
[2024-07-05] MEDS: ONDANSETRON INJ 2 MG/ML 2 ML VIAL IV PRN (11:29)
--- NOTE | 2024-07-05 15:15 | Communication Note ---
Date of Service: July 05, 2024 Patient seen and examined at bedside. She reports nausea; right-sided abdominal pain and discomfort Denies any vomiting episode. She has not had any bowel movement On physical exam Constitutional alert oriented x 3; not in distress. Respiratory: normal respiratory effort, lungs clear to auscultation, no wheeze, rales, rhonchi. Normal insp/exp effort, no accessory muscle use Cardiovascular: RRR, no murmur, no edema Vessels: no JVD or carotid bruit Chest: normal inspection of chest Abdomen: Distended, mild tenderness on right side. Musculoskeletal: no cyanosis or clubbing, extremities motor strength 5/5 Skin: no rashes, warm and dry normal turgor Neurologic: PERRL, EOMI, accommodation nl, no face palsy, no dysarthria CN's II- XI intact bilaterally and moves all extremities Psychiatric: A+Ox3, euthymic affect Assessment/plan Small bowel obstruction; history of multiple surgeries in the past. Complains of nausea at this time along with abdominal bloating. Continue supportive care and IV hydration. Surgery on board; appreciate recommendation Continue other meds for hypertension, GERD, depression and anxiety. Please note the above document was generated using voice recognition software. It may contain grammatical, syntax or spelling errors. Any formal questions or concerns about the content, text or information contained within the body of this dictation should be directly addressed to the provider for clarification
--- NOTE | 2024-07-05 16:49 | XRay Report ---
KUB CLINICAL HISTORY: dilated small bowel COMPARISON STUDY: CT of the abdomen and pelvis July 04, 2024. FINDINGS: The bowel gas pattern is normal. Cholecystectomy clips are incidentally noted. The amount o f stool is within normal limits. IMPRESSION: No radiographic evidence for a bowel obstruction. ACT 112: Negative or not required by law. Electronically signed by: Ivan Guerra M.D. 07/05/2024 4:48 PM
[2024-07-05] MEDS: ACETAMINOPHEN 1,000 MG/100 ML VIAL IV PRN (17:20)
[2024-07-05] MEDS: lisinopril 5 MG TAB PO SCH (20:01)
[2024-07-05] MEDS: FAMOTIDINE 20MG IV PUSH 20 MG/5 ML SYR IV PRN (22:04)
[2024-07-05] MEDS: hydrOXYzine HCl 10 MG TAB PO PRN (23:13)
[2024-07-06] MEDS: FUROSEMIDE INJ 20 MG/2 ML VIAL IV ONE (01:37)
[2024-07-06] MEDS: HYDROmorphone INJ 0.5 MG/0.5 ML SYR IV PRN (07:45)
--- NOTE | 2024-07-06 09:59 | Electrocardiogram Report ---
Test Reason : Blood Pressure : */* mmHG Vent. Rate : 71 BPM Atrial Rate : 71 BPM P-R Int : 152 ms QRS Dur : 90 ms QT Int : 424 ms P-R-T Axes : 54 66 69 degrees QTcB Int : 460 ms Normal sinus rhythm Normal ECG When compared with ECG of 04-Sep-2022 21:37, No significant change was found Confirmed by Percy Ang ([id number]) on 07/06/2024 9:58:48 AM Referred By: REFERRED SELF Confirmed By: Percy Ang
--- NOTE | 2024-07-06 10:04 | Surgery Progress Note ---
<Statement entered by Dominick Solis, DO - 07/06/24 10:58> Patient still with some abdominal pain. TTP upper abdomen. While she feels improved, and like things area "opening up" she is not back to baseline still with some residual symptoms. Would progress slowly. If feeling better by this evening with decreased abdominal pain and tenderness, may consider a clear liquid tray for dinner. Date of Service July 06, 2024 Assessment & Plan (1) Dilation of small bowel anastomosis: Plan: Pt report feeling better than yesterday had sm bm and passing sm amt flatus TTP abdomen encouraged ambulation this Am and after can start clears for dinner if still passing flatus and no n/v Pt seen and examined with Dr. Solis (2) Abdominal pain: Admission and Anticipated Discharge Date Admission Date: July 05, 2024 Subjective pt denies N/V , having some bms and passing flatus ambulating without difficulty reports abd pain getting better Review of Systems Constitutional: no fever and no chills Respiratory: no dyspnea Cardiovascular: no chest pain Gastrointestinal: + abdominal pain; no nausea and no vomit ing Musculoskeletal: no muscle weakness Physical Exam Constitutional: cooperative and comfortable; no acute distress Respiratory: normal respiratory effort and able to speak in complete sentences; no respiratory distress Cardiovascular: Rate/Rhythm: regular rate Gastrointestinal (Abdomen): Inspection/Auscultation: + significant pannus; abdomen not distended Percussion/Palpation: + abdomen tender and abdomen soft Results & Data Vital Signs (Past 12 Hours) Vital Signs Temp Pulse Resp BP Pulse Ox O2 Del Method 07/06/24 07:03 98.4 F 77 18 122/77 93 Room Air Results CBC w Diff Results: RBC 4.22 M/uL (4.20-5.40) 07/05/24 WBC 5.69 K/ul (4.8-10.8) 07/05/24 Hgb 13.2 g/dl (12.0-16.0) 07/05/24 Hct 40.3 % (37.0-47.0) 07/05/24 MCV 95.5 fL (80.0-100.0) 07/05/24 MCH 31.3 pg (25.0-34.0) 07/05/24 MCHC 32.8 g/dL (32.0-36.0) 07/05/24 RDW Standard Deviation 47.5 fL (36.4-46.3) H 07/05/24 RDW Coefficient of Variation 13.3 % (11.5-14.5) 07/05/24 Plt Count 250 K/uL (130-400) 07/05/24 MPV 9.5 fL (9.4-12.4) 07/05/24 Neutrophils (%) (Auto) 50.7 % 07/05/24 Lymphocytes (%) (Auto) 35.7 % 07/05/24 Monocytes # (Auto) 0.57 K/uL (0.11-0.59) 07/05/24 Eosinophils # (Auto) 0.14 K/uL (0.00-0.50) 07/05/24 Immature Granulocyte % (Auto) 0.2 % 07/05/24 Neutrophils # (Auto) 2.89 K/uL (1.40-6.50) 07/05/24 Lymphocytes # (Auto) 2.03 K/uL (1.20-3.40) 07/05/24 Monocytes # (Auto) 0.57 K/uL (0.11-0.59) 07/05/24 Eosinophils # (Auto) 0.14 K/uL (0.00-0.50) 07/05/24 Basophils # (Auto) 0.05 K/uL (0.00-0.20) 07/05/24 Immature Granulocyte # (Auto) 0.01 K/uL (0.01-0.20) 4 PG Care Time/CCT Total # of Minutes Spent Total Time Spent with Patient: Total time spent is greater than 50% in coordination of care (as documented) at patient's floor/unit and/or counseling patient: Coding Level of Care Code 91637 SUB INP/OBS CARE 1/25MIN Diagnoses Dilation of small bowel anastomosis K91.89 Abdominal pain R10.9
--- NOTE | 2024-07-06 10:26 | Hospitalist Progress Note ---
Date of Service July 06, 2024 Assessment & Plan (1) Abdominal pain: Plan: 58-year-old female with past medical history significant for solitary pulmonary nodule, aortic ectasia, diverticular disease, calculus of kidney, urinary incontinence, multiple sclerosis, migraine, restless leg syndrome, rectus sheath hematoma, osteoporosis, history of iron deficiency anemia, history of gastric bypass, anxiety/ depression, presents with abdominal pain. Small bowel obstruction Patient presents with abdominal pain, distention and nausea CT abdomen and pelvis on admission shows dilated small bowel at jejunostomy measuring up to 3.4 cm. Surgery on board; diet advanced to clear liquid. Continue to advance as tolerated Encourage ambulation Pain control Hypertension, Continue lisinopril, GERD On Protonix, continue Depression and anxiety Duloxetine and hydroxyzine as needed DVT prophylaxis Lovenox Disposition Observation medical floor Full code Please note the above document was generated using voice recognition software. It may contain grammatical, syntax or spelling errors. Any formal questions or concerns about the content, text or information contained within the body of this dictation should be directly addressed to the provider for clarification Admission and Anticipated Discharge Date Admission Date: July 05, 2024 Subjective Patient seen and examined at bedside She reports a small bowel movement as well as passing flatus Abdomen discomfort slightly improved no nausea or vomiting Review of Systems Review of Systems: All systems reviewed & are unremarkable except as noted in Subjective Physical Exam Physical Exam: General- Not in distress Head- atraumatic Eyes- PERRL. ENT- oropharynx clear Neck- supple, no JVD. Lungs- clear to auscultation no wheezing or crackles Heart- regular rhythm; no murmur, no gallop. Abdomen- Slightly distended, mild tenderness on right side. overall improved to previous day. Extremities- no pretibial edema, no erythema seen Neuro- alert, oriented ; PERRL, no facial palsy; no dysarthria; moves extremities Results & Data Results & Data Vital Signs (Past 12 Hours) Vital Signs Temp Pulse Resp BP Pulse Ox O2 Del Method 07/06/24 07:03 36.9 C 77 18 122/77 93 Room Air
[2024-07-06] MEDS: BUTALBITAL/ACETAMIN/CAFFEINE TAB PO PRN (11:38)
[2024-07-06 15:09] LABS: BUN Creatinine Ratio 13.1 (10-20); Calcium 9.4 mg/dl (8.6-10.3); Creatinine Clr Calc Pharmacy 115.8 ml/min; Est GFR (Non-African American) 99.2 ml/min; Potassium 4.3 mmol/L (3.5-5.1)
[2024-07-07 07:59] LABS: Basophils # (auto) 0.04 K/uL (0.00-0.20); Basophils % (auto) 0.7 %; Eosinophils # (auto) 0.08 K/uL (0.00-0.50); Eosinophils % (auto) 1.4 %; Hematocrit (blood only) 38.9 % (37.0-47.0); Immature Granulocytes # (auto) 0.01 K/uL (0.01-0.20); Immature Granulocytes % (auto) 0.2 %; Lymphocytes % (auto) 32.1 %; Mean Corpuscular Hemoglobin 31.3 pg (25.0-34.0); Mean Corpuscular Hgb Conc 33.4 g/dL (32.0-36.0); Mean Corpuscular Volume 93.7 fL (80.0-100.0); Mean Platelet Volume 9.8 fL (9.4-12.4); Monocytes # (auto) 0.48 K/uL (0.11-0.59); Monocytes % (auto) 8.6 %; Platelet Count 244 K/uL (130-400); RDW Coefficient of Variation 12.7 % (11.5-14.5); RDW Standard Deviation 43.8 fL (36.4-46.3); Red Blood Count 4.15 M/uL (4.20-5.40); White Blood Count 5.61 K/ul (4.8-10.8)
[2024-07-07 08:00] LABS: BUN Creatinine Ratio 11.9 (10-20); Creatinine Clr Calc Pharmacy 119.7 ml/min; Est GFR (African American) 116.3 ml/min; Est GFR (Non-African American) 100.3 ml/min
--- NOTE | 2024-07-07 11:08 | Surgery Progress Note ---
<Statement entered by Dominick Solis DO - 07/07/24 11:53> I have seen and examined this patient with the surgical PA this am. I agree with the plan. Date of Service July 07, 2024 Assessment & Plan (1) Dilation of small bowel anastomosis: Plan: Pt here w/ dilation of small bowel anastomosis She is feeling well overall, reports some issues with sugary food like jello We will advance to fulls, see if "bariatric diet modification" provides any better options for her Pain & admitting symptoms improving If continues to feel well, adv to low fiber with hopeful dispo holger am OOB/ambulating Admission and Anticipated Discharge Date Admission Date: July 05, 2024 Subjective Patient states she is feeling better. Feels abdominal bloating and pain are improving, just feels a little "gassy". reports intermittent mild nausea but this is not uncommon for her and tends to feel it if she eats something sugary like the jello she is getting served her. Tolerating clears and is hungry for more. Physical Exam Physical Exam: awake/alert, no distress Gastrointestinal (Abdomen): Inspection/Auscultation: + abdomen distended (improved) Percussion/Palpation: + abdomen tender (improving discomfort in left upper abdomen ) and abdomen soft Results & Data Vital Signs (Past 12 Hours) Vital Signs Temp Pulse Resp BP Pulse Ox O2 Del Method 07/07/24 08:02 98.2 F 64 18 140/90 94 Room Air PG Care Time/CCT Total # of Minutes Spent Total Time Spent with Patient: Total time spent is greater than 50% in coordination of care (as documented) at patient's floor/unit and/or counseling patient: Coding Level of Care Code 78146 SUB INP/OBS CARE 1/25MIN Diagnoses Dilation of small bowel anastomosis K91.89
--- NOTE | 2024-07-07 15:27 | Hospitalist Progress Note ---
Date of Service July 07, 2024 Assessment & Plan (1) Abdominal pain: Plan: 58-year-old female with past medical history significant for solitary pulmonary nodule, aortic ectasia, diverticular disease, calculus of kidney, urinary incontinence, multiple sclerosis, migraine, restless leg syndrome, rectus sheath hematoma, osteoporosis, history of iron deficiency anemia, history of gastric bypass, anxiety/ depression, presents with abdominal pain. Small bowel obstruction Patient presents with abdominal pain, distention and nausea CT abdomen and pelvis on admission shows dilated small bowel at jejunostomy measuring up to 3.4 cm. Surgery on board; diet advanced to full liquid. Continue to advance as tolerated Encourage ambulation Pain control Hypertension: Continue lisinopril GERD: On Protonix, continue Depression and anxiety: Duloxetine and hydroxyzine as needed DVT prophylaxis: Lovenox Disposition: likely dc in next 1-2 days. Full code Please note the above document was generated using voice recognition software. It may contain grammatical, syntax or spelling errors. Any formal questions or concerns about the content, text or information contained within the body of this dictation should be directly addressed to the provider for clarification Admission and Anticipated Discharge Date Admission Date: July 07, 2024 Subjective Patient seen and examined at bedside She reports a small bowel movement yesterday as well as passing flatus, reports feeling better, reports improvement in abdominal discomfort significantly. Denies vomiting. Reports intermittent nausea which is chronic for her. Physical Exam Physical Exam: General- Not in distress Head- atraumatic Eyes- PERRL. ENT- oropharynx clear Neck- supple, no JVD. Lungs- clear to auscultation no wheezing or crackles Heart- regular rhythm; no murmur, no gallop. Abdomen- Nondistended, no tenderness. Extremities- no pretibial edema, no erythema seen Neuro- alert, oriented ; PERRL, no facial palsy; no dysarthria; moves extremities Results & Data Results & Data Vital Signs (Past 12 Hours) Vital Signs Temp Pulse Resp BP BP Pulse Ox O2 Del Method 07/07/24 13:13 36.9 C 68 18 138/90 94 Room Air 07/07/24 08:02 36.8 C 64 18 140/90 94 Room Air
[2024-07-07] MEDS ORDERED: Nursing to Pharmacy Communication SCH (21:45)
[2024-07-08 07:50] LABS: BUN Creatinine Ratio 12.1 (10-20); Calcium 9.3 mg/dl (8.6-10.3); Creatinine Clr Calc Pharmacy 121.7 ml/min; Est GFR (African American) 116.9 ml/min; Est GFR (Non-African American) 100.9 ml/min; Potassium 3.8 mmol/L (3.5-5.1)
--- NOTE | 2024-07-08 10:16 | Surgery Progress Note ---
<Statement entered by Dominick Solis DO - 07/08/24 19:45> This patient was discussed the the surgical PA. Date of Service July 08, 2024 Assessment & Plan (1) Dilation of small bowel anastomosis: Plan: Pt here w/ dilation of small bowel anastomosis She is feeling well overall, tolerating fulls, hungry for more Mild nausea (which is not unusual for her). No emesis. Is passing gas, feels rumblings like she may have a BM Pain improved, not requiring any pain meds We will advance to low fiber and see how she fairs If continues to feel well and tolerates diet may dispo later today OOB/ambulating Admission and Anticipated Discharge Date Admission Date: July 07, 2024 Subjective Patient feeling well. Tolerating full liquids and is hungry to try more. Some mild nausea, but this can be usual for her. Passing flatus, feels as though she may have a BM here today. Ambulating. Mild pain that is improved. Physical Exam Physical Exam: awake/alert, no distress Respiratory: normal respiratory effort Gastrointestinal (Abdomen): Inspection/Auscultation: abdomen not distended Percussion/Palpation: + abdomen tender (mild discomfort in the left upper abdomen) and abdomen soft Results & Data Vital Signs (Past 12 Hours) Vital Signs Temp Pulse Resp BP Pulse Ox O2 Del Method 07/08/24 07:12 98.1 F 64 16 115/70 93 Room Air PG Care Time/CCT Total # of Minutes Spent Total Time Spent with Patient: Total time spent is greater than 50% in coordination of care (as documented) at patient's floor/unit and/or counseling patient: Coding Level of Care Code 84235 SUB INP/OBS CARE 1/25MIN Diagnoses Dilation of small bowel anastomosis K91.89
--- NOTE | 2024-07-08 14:32 | Discharge Summary ---
Date of Service July 08, 2024 Admission HPI Per Admitting Provider 58-year-old female with past medical history significant for solitary pulmonary nodule, aortic ectasia, diverticular disease, calculus of kidney, urinary incontinence, multiple sclerosis, migraine, restless leg syndrome, rectus sheath hematoma, osteoporosis, history of iron deficiency anemia, history of gastric bypass, anxiety/ depression, presents with abdominal pain. Since afternoon she is having severe abdominal pain associated with nausea. No vomiting. In the evening moved her bowels which were normal. Passing gas. Denies any chest pain. No shortness of breath. Has chronic cough. Has Some dizziness. States vision is always blurry. No runny nose or sore throat. No fevers. Has mild to moderate headache. Micturating okay. Resting comfortably and hemodynamically stable. Past medical history. As mentioned above. Past surgical history. Colonoscopy. EGD. EGD with biopsy. Gastric bypass for obesity. Total abdominal hysterectomy with removal of tubes. Social history. Quit smoking 2018. Smoked 0.6 pack a day for 34 years. Alcohol occasional. No drug use. Family history no family history on file Admission Exam Per Admitting Provider General- Not in distress Head- atraumatic Eyes- PERRL. ENT- oropharynx clear Neck- supple, no JVD. Lungs- clear to auscultation no wheezing or crackles Heart- regular rhythm; no murmur, no gallop. Abdomen- normal bowel sounds, soft, nontender, no distension Extremities- no pretibial edema, no erythema seen Neuro- alert, oriented ; PERRL, no facial palsy; no dysarthria; moves extremities Principal Diagnosis Small bowel obstruction Abdominal pain Discharge Exam General- Not in distress Head- atraumatic Eyes- PERRL. ENT- oropharynx clear Neck- supple, no JVD. Lungs- clear to auscultation no wheezing or crackles Heart- regular rhythm; no murmur, no gallop. Abdomen- Nondistended, no tenderness. Extremities- no pretibial edema, no erythema seen Neuro- alert, oriented ; PERRL, no facial palsy; no dysarthria; moves extremities Discharge Data Allergies Allergy/AdvReac Type Severity Reaction Status Date / Time cephalexin Allergy Unknown RASH HIVES Verified 08/13/23 08:48 TROUBLE BREATHING ITCHY Cephalosporins Allergy Unknown Rash,hives, Verified 08/13/23 08:48 trouble breathing and itchiness Consultations 07/05/24 02:38 ED Decision to Admit Stat 07/05/24 08:00 Consult General Surgery Routine Ordered Studies 07/04/24 21:43 CT abd pelvis wo con Stat Hospital Course (1) Abdominal pain: 58-year-old female with past medical history significant for solitary pulmonary nodule, aortic ectasia, diverticular disease, calculus of kidney, urinary incontinence, multiple sclerosis, migraine, restless leg syndrome, rectus sheath hematoma, osteoporosis, history of iron deficiency anemia, history of gastric bypass, anxiety/ depression, presents with abdominal pain. She was managed for the following: Small bowel obstruction Patient presents with abdominal pain, distention and nausea CT abdomen and pelvis on admission shows dilated small bowel at jejunostomy measuring up to 3.4 cm. Surgery on board; diet advanced to low fiber. Pt tolerating diet well, no abd pain, small bm in am per rn. Encourage ambulation Pt feels better and would like to go home. Hypertension: Continue lisinopril GERD: On Protonix, continue Depression and anxiety: Duloxetine and hydroxyzine as needed DVT prophylaxis: Lovenox Full code Patient is being discharged home with following instruction at the point of discharge: Follow-up with your primary care physician within a week time and likely you will need labs CBC/CMP/magnesium/phosphorus. Maintain low fiber diet for next few days before going back to your regular meals. Continue to take your medications as prescribed. Please make sure that you are able to get your medications today by calling your pharmacy before you leave the hospital so that your treatment continuity is not broken. Please note the above document was generated using voice recognition software. It may contain grammatical, syntax or spelling errors. Any formal questions or concerns about the content, text or information contained within the body of this dictation should be directly addressed to the provider for clarification Home Health Attestation I certify that this patient is under my care and that I, or a physicians kindergarten assistant working with me, had a face to-face encounter that meets the home health [id number] encounter requirements with this patient. The encounter with the patient was in whole, or in part, for the following medical condition, which is the primary reason for home health care (list medical condition): I certify that, based on my findings, the following services are medically necessary home health services: My clinical findings support the need for the above services because: Further, I certify that my clinical findings support that this patient is homebound (i.e. absences from home require considerable and taxing effort and are for medical reasons or protestant services or infrequently or of short duration when for other reasons) because: Certification for Home Health Services: Based on the above findings, I certify that this patient is confined to the home and needs intermittent halfway care, physical therapy and/or speech therapy or continues to need occupational therapy. The patient is under my care, and I have initiated the establishment of the plan of care. This patient will be followed by a physician who will periodically review the plan of care. Total Time Total Time Spent Total Time Spent (In Minutes): 45 Discharge Plan Discharge Items Patient Disposition: Home - Self-Care Reason For Visit: ABDOMINAL PAIN Discharge Diagnosis: Small bowel obstruction Abdominal pain Activity: Resume your previous activity Non-emergency contact: Primary Care Provider Call non-emergency contact if: you have any medication questions, your symptoms worsen and your pain is worsening Follow-up/Referrals: Tamia Nolasco MD [Primary Care Provider] - (Date & Time 07/16/2024 11:00 AM Provider Tamia Nolasco MD Department [facility] ) Diet: Low Fiber Addtl Attending Provider Instructions: Follow-up with your primary care physician within a week time and likely you will need labs CBC/CMP/magnesium/phosphorus. Maintain low fiber diet for next few days before going back to your regular meals. Continue to take your medications as prescribed. Please make sure that you are able to get your medications today by calling your pharmacy before you leave the hospital so that your treatment continuity is not broken. Pending Studies at Discharge: No Stand-Alone Forms: My [facility], Smoking Cessation Medications and DC Order Prescriptions: New ondansetron 4 mg tablet,disintegrating 4 mg PO BID PRN (Reason: nausea and vomiting) Qty: 30 0RF Continued pantoprazole 40 mg tablet,delayed release (DR/EC) 40 mg PO DAILY lisinopril 5 mg tablet 5 mg PO HS hydroxyzine HCl 10 mg tablet 10 mg PO Q6H PRN (Reason: Anxiety) duloxetine 30 mg capsule,delayed release(DR/EC) 30 mg PO BID Discharge Orders: Discharge Order (Routine); Ordered 07/08/24 Ordered By: Ada Hugo Admission Data Admit Date/Time: 07/07/24 11:17 Attending Provider: Ada Hugo Admit Provider: Rishabh Fabian Primary Care Provider: Tamia Nolasco Other Providers: Rishabh Fabian; Luis Felipe Rizvi
--- OUTSIDE RECORDS SUMMARY | 2024-07-09 09:24 | External Medical Summary | Summary of Care ---
Author Name Unknown Organization [facility] Address [address] [place] [address] Phone [phone] Care Team Providers Care Pulper Operator Name Role Phone Tamia Nolasco MD Primary Care Provid er Encounter Details Date Type Department Care Team (Late st Contact Info) Description 07/05/2024 Orders Only Outcomes Research Department [address] [place] [address] Oly Crowe CHRA [facility] Other*[id number] Allergies Active Allergy Reactions Criticality Noted Date Comments Cephalosporins Hives,Itching Medium 03/08/2003 Glatiramer Acetate 12/18/2021 Chest tightness documented as of this encounter (statuses as of 07/05/2024) Medications Medication Sig Dispensed Refills Start Date End Date Status rOPINIRole (REQUIP) 0.25 MG Tablet Take 1 Tablet by mouth at bedtime as needed (restless legs). Active Fluticasone Propionate 50 MCG/ACT Nasal Suspension (Flonase)Indicatio ns:Acute non-recurrent maxillary sinusitis Administer into each nostril 2 Sprays in the morning. 48 mL 3 02/19/2022 Active Additional Information Patient taking differently:2 [place] Each NostrilDAILY PRN, Allergies, Congestion, Informant: Patient, [...] as of this encounter (statuses as of 07/05/2024) Active Problems Problem Noted Date Diagnosed Date [...] as of this encounter (statuses as of 07/05/2024) Resolved Problems Problem Noted Date Diagnosed Date [...] as of this encounter (statuses as of 07/05/2024) Immunizations Name Administration Dates Next Due COVID-19 [...] Description 10/01/2024 11:40 AM EDT Office Visit [facility] [address] [place] [id number] Tamia Nolasco MD [address] [place] [address] Scheduled Orders Name Type Priority Associated Diagnoses Orde r Schedule MYCODE SUBSEQUENT ADULT Lab Routine [facility] Other*[id number] Every 6 Months for 2 Occurrences starting 07/05/2024 until 07/25/2025 Scheduled Procedures Name Priority Associated Diagnoses Date/Ti me COLONOSCOPY FLEXIBLE PROXIMAL DIAGNOSTIC Recall History of colon polyps Health Maintenance Due Date Last Done Comments Hepatitis B Vaccine (1 of 3 - 19+ 3-dose series) 1983 Cologuard 2009 Fecal Occult Blood Test 2009 Sigmoidoscopy 2009 DXA Scan 2014 Zoster Vaccines (1 of 2) 2014 *BISPHONATE OR OTHER ACCEPTABLE MEDICATION NEEDED FOR OSTEOPOROSIS (REFER TO SMARTSET #1146) 03/29/2021 Depression Monitoring 04/13/2022 04/13/2021 COVID-19 Vaccine ( season) 2023 10/17/2021, 03/17/2021, 02/17/2021 Mammogram 12/26/2023 12/26/2022, 0803/2011, 07/05/2011, Additional history exists Influenza Vaccine (FLU shot) (#1) 2024 11/04/2023, 10/21/2022, 09/11/2021, Additional history exists Colonoscopy 04/22/2027 04/22/2022, 04/01, 04/06/2009 Colorectal Cancer Screening 04/22/2027 Diabetes Screening 06/28/2027 06/28/2024, 1 , 12/31/2022, Additional history exists Lipid Panel 06/28/2029 06/28/2024 DTaP,Tdap,and Td Vaccines (4 - Td or Tdap) 06/14/2034 06/14/2024, 10/13/2020, 04/10/2009 RETIRED - COLONOSCOPY-EVERY 2 YRS AGES 18-100 Discontinued 04/22/2022, 04/22/2022, 04/06/2009 RETIRED - COLONOSCOPY-EVERY 5 YRS AGES 18-100 Discontinued 04/22/2022, 04/22/2022, 04/06/2009 Lung Cancer Screening Completed 12/26/2022 , 10/08/2021, 07/05/2021, Additional history exists VITAMIN D LEVEL ONCE IN A LIFETIME-USE SMARTSET# [id number] Completed 06/28/2024, 05/30/2011, 01/23/2011, Additional history exists HPV (Gardasil) Vaccine Aged [...] this encounter Visit Diagnoses Diagnosis [facility] Other*[id number] documented in this encounter Advance Directives * Full Code (Latest Code Status on File) Date Activated Date Inactivated Comments 12/30/2022 11:38 AM 12/31/2022 6:19 PM This order reflects the patients wishes and were consensually agreed upon. Question Answer Comments Discussion of Advance Directives occurred with: Patient Care Teams Pulper Operator Relationship Specialty Start Date End Date Tamia Nolasco MD [address], [place] [phone] PCP - General Family Medicine 01/23/21 documented as of this encounter
== END 2024-07-08 15:10 | disposition home or self-care (01) | DRG 394 ==
LOC: ED 21:09 → EDINP 21:09 → SUATTDRO 07-05 04:21 → 3W 07-05 07:01